=== PATIENT | female | born 1940 | race Caucasian/White ===

== ENCOUNTER 2019-08-19 10:20 | Outpatient (RCR) | payer MEDICARE, SELFPAY ==
[2019-06-17 12:28] VITALS: BP 134/43; PULSE 77; RESP 20; TEMP 37.1; O2SAT 96
[2019-06-17 12:34] LABS: Hematocrit 40.6 % (37.0-47.0); Hemoglobin 13.6 g/dL (12.0-15.0); Mean Corpuscular HGB Conc 33.5 g/dl (32-36); Mean Corpuscular Hemoglobin 30.2 pg (26-34); Mean Corpuscular Volume 90.2 fl (80-100); Mean Platelet Volume 10.3 fl (7.4-10.4); Platelet Count Result 254 k/mm3 (150-375); Red Cell Distribution Width 12.4 % (11.5-14.5); White Blood Count 8.5 K/mm3 (4.5-10.0)
[2019-06-17 12:46] LABS: Alanine Aminotransferase 27 U/L (4-35); Albumin Level 3.7 g/dL (3.5-5.1); Alkaline Phosphatase 49 U/L (38-126); Aspartate Amino Transferase 30 U/L (14-36); Bilirubin,Total 0.3 mg/dL (0.2-1.3); Blood Urea Nitrogen 20 mg/dL (7-17); Calcium 10.2 mg/dL (8.4-10.2); Carbon Dioxide 26 mmol/L (22-30); Chloride 104 mmol/L (98-107); Creatine Kinase 451 U/L (30-135); Estimated Glomerular Filt Rate > 60; Glucose 133 mg/dL (65-105); Potassium 3.5 mmol/L (3.4-5.0); Sodium 137 mmol/L (137-145)
[2019-06-27 11:00] VITALS: BP 127/59; PULSE 75; RESP 16; TEMP 36.9; O2SAT 96
[2019-06-27 12:05] VITALS: BP 145/52; PULSE 71; RESP 16; TEMP 37.1; O2SAT 96
[2019-07-08 10:34] VITALS: BP 145/52; PULSE 102; RESP 20; TEMP 36.9; O2SAT 93
--- NOTE | 2019-07-08 11:16 | PC.NURSE ---
1030 PT TO [facility] 01 FOR SOLMEDROL INFUSION. BUCK Carcamo RN CALLED FOR IV INSERTION VIA ULTRASOUND.
[2019-07-18 10:55] VITALS: BP 111/79; PULSE 81; RESP 14; TEMP 37.3; O2SAT 96
--- NOTE | 2019-07-18 11:36 | PC.NURSE ---
1020: ARRIVES VIA WC TO [facility] 1 W/ AT SIDE FOR IV SOLUMEDROL DOSE ORDERED. DENIES PAIN OR SOB ON ARRIVAL. BUCK COUNTS RN TO START IV SITE.
[2019-07-18 11:50] VITALS: BP 142/62; PULSE 80; RESP 14; TEMP 37.4; O2SAT 93
--- NOTE | 2019-07-18 12:43 | PC.NURSE ---
1156: DISCHARGED HOME W/ VIA OWN WC TO PRIVATE CAR.
[2019-07-29 10:10] VITALS: BP 136/62; PULSE 77; RESP 14; TEMP 37; O2SAT 99
[2019-08-08 10:30] VITALS: BP 148/48; PULSE 70; RESP 14; TEMP 36.7; O2SAT 99
[2019-08-19 11:00] VITALS: BP 135/63; PULSE 82; RESP 14; TEMP 37.1; O2SAT 94
[2019-08-19 11:55] VITALS: BP 129/55; PULSE 74; RESP 16; O2SAT 95
[2019-08-29 12:13] VITALS: BP 144/65; PULSE 74; RESP 14; TEMP 36.6; O2SAT 95
== END 2019-09-05 23:59 | disposition home or self-care (01) ==
LOC: ANHCPCTRAN 10:20
PROVIDERS: PCP Family Medicine; Visit Provider Family Medicine
DX: M33.22 Polymyositis with myopathy (principal)
CPT/HCPCS: 36415; 80053; 82550; 85027; 96365; J2930

== ENCOUNTER 2019-09-24 09:39 | Inpatient (IN) | payer MEDICARE, SELFPAY ==
--- NOTE | ~2019-09-24 | US_ITS ---
US right upper quadrant INDICATION: Elevated lipase PROCEDURE: Realtime right upper abdominal ultrasound. COMPARISON: No prior studies for comparison. FINDINGS: Pancreas is obscured by bowel gas. Liver echotexture is increased, consistent with fatty i nfiltration. There is normal directional flow in the portal vein. Gallbladder is surgically absent. Common bile duct measures 4.5 mm. IMPRESSION: 1: Hepatic steatosis. 2: Gallbladder is surgically absent. Reviewed, dictated and finalized at location A. R PLANT MANAGER
--- NOTE | ~2019-09-24 | CT_ITS ---
EXAMINATION: CT abdomen pelvis w con EXAM DATE: 09/24/2019 11:52 INDICATION: Left sided, pain. TECHNIQUE: Spiral CT of the abdomen and pelvis was performed following intravenous injection of 100 m L Omnipaque 350. Axial, coronal and sagittal images were reviewed. The dose-length product (DLP) fo r this examination was 372.10 mGy-cm. The exposure was tailored according to patient size (auto mA e xposure control), and iterative reconstruction (ASIR) was used as additional dose reduction technique . Comparison is made to prior examination from 06/13/2006. FINDINGS: The liver, spleen, adrenal glands and pancreas are unremarkable. Patient has probably had cholecystectomy with resultant common bile duct dilation. Portal and splenic veins are patent. Kidn eys enhance symmetrically. There is no hydronephrosis. The uterus is unremarkable. The bladder i s unremarkable. There is no retroperitoneal or pelvic lymphadenopathy. There is mild scattered art eriosclerotic disease. Small umbilical fat-containing hernia. The appendix is normal. The stomach and small bowel are unremarkable. There is expected amount of c olonic stool. There is moderate sigmoid predominant colonic diverticulosis. There is no adjacent inf lammatory change to suggest diverticulitis. No free intraperitoneal gas. There is some cardiomegal y. Linear bibasilar scarring/atelectasis. Moderate thoracolumbar spondylosis. There are no osteobla stic or osteolytic lesions identified. Diffuse fatty infiltration, atrophy of muscles. IMPRESSION: 1. No acute intra-abdominal findings. 2. Moderate sigmoid predominant colonic diverticulosis. 3. Other chronic findings. Reviewed, dictated and finalized at location A. RAPHIC INFORMATION SYSTEMS DIRECTOR
[2019-09-24 09:55] VITALS: BP 140/102; PULSE 76; RESP 17; TEMP 36.8; O2SAT 100
--- NOTE | 2019-09-24 10:04 | ED.ABDPAIN ---
HPI - Abdominal Pain General Chief Complaint: Abdominal Pain Stated Complaint: abd pain Time Seen by Provider: 09/24/19 10:01 Source: patient and RN notes reviewed Mode of arrival: other Limitations: no limitations History of Present Illness HPI narrative: Pt is an 79 y/o female who presents to the ED with c/o left sided abdominal pain that began Monday (09/22/19) night. Pt's family was at bedside and provided the information. Pt had fried fish for dinner on Monday. Pt's family states the pt only ate chicken noodle soup yesterday. Pt's family called the pt's PCP today, but they were unable to make an appointment. Pt was recommended to come to the ED for further evaluation. Pt has a hx of ischemic colitis and myositis. Pt also reports a poor appetite, but denies a fever, vomiting, and being weaker than normal. MD elicited complaint: abdominal pain Onset (ago): day(s) (2) Pain Consistency: other (still present) Location: other (left side) Relieving factors: nothing Associated symptoms: other (poor appetite) Related Data Home Medications Medication Instructions Recorded Confirmed Caltrate + D3 Plus Minerals 09/24/19 Vitamin D3 09/24/19 denosumab [Prolia] See Rx Instructions .ROUTE .COMPLEX 09/24/19 09/24/19 zoalaljoygf-phs-tsipvaphk-vitC cap PO 09/24/19 [Glucosamine Complex-MSM] metformin mg 09/24/19 methylprednisolone sodium succ 09/24/19 potassium chloride meq PO 09/24/19 potassium chloride [Klor-Con 10] meq PO 09/24/19 zoledronic acid IV 09/24/19 Allergies Allergy/AdvReac Type Severity Reaction Status Date / Time cefuroxime Allergy Unknown Unknown Verified 09/24/19 14:23 codeine Allergy Unknown Skin Verified 09/24/19 14:23 irritation metronidazole Allergy Unknown Unknown Verified 09/24/19 14:23 Ulvwryp-Pqz-Ycw Reductase AdvReac Unknown Verified 09/24/19 14:23 Inhibitor Review of Systems Review of Systems: All systems reviewed & are unremarkable except as noted in HPI and below Constitutional: Constitutional: Denies fever(s) and Reports poor appetite Gastrointestinal: Gastrointestinal: Reports abdominal pain (left sided) and Denies vomiting Neurologic: Denies weakness (increased) [facility] Past Medical History Medical History (Updated 09/24/19 @ 18:36 by Sharon Costello MD) GERD (gastroesophageal reflux disease) Ischemic colitis Myositis Osteoporosis Seasonal allergies Type II diabetes mellitus Ulcer UTI (urinary tract infection) Surgical History Surgical History (Updated 09/24/19 @ 10:39 by Shirlene Snyder) History of cardiac catheterization Hx of appendectomy Hx of cholecystectomy Family History Family History (Updated 09/24/19 @ 16:07 by Sanchez Melendez, RN) Other Unknown family medical history Social History Social History Smoking status: Never smoker Second hand tobacco smoke exposure: No Alcohol intake: former Substance use: never Gender identity (if verbalized by the patient): Female Spiritual care concerns: No Agree to blood products: No Exam Narrative: Exam Narrative: GENERAL: well-nourished, and in no acute distress. HEAD: Normocephalic, atraumatic EYES: PERRLA and EOMI, conjunctiva clear without discharge THROAT:Mucous membranes moist, Oropharynx normal without erythema, exudate, peritonsillar swelling or fluctuance NECK: Supple, without lymphadenopathy or mass RESPIRATORY: No respiratory distress, Airway patent, Respirations non-labored, Clear to auscultation without rales, rhonchi or wheeze HEART: Regular rate and rhythm. No murmur heard. Normal peripheral pulses. ABDOMEN: Diffuse tenderness with worse tenderness epigastric RUQ, LUQ, nondistended, normal active bowel sounds. No masses. No rebound or guarding, No organomegaly. EXTREMITIES: bilateral lower extremity edema SKIN: Warm, dry, normal color without rash NEURO: Alert and oriented x person, place. CN 2-12 grossly intact. No focal deficits. PSYCH: Normal mo
[2019-09-24] MEDS: LACTATED RINGERS 1,000 ML 999 ML IV CONT (10:37)
[2019-09-24 10:38] LABS: Basophils Percent Auto 0.2 % (0.2-1.2); Eosinophils Absolute Auto 0.2 K/mm3 (0-0.3); Eosinophils Percent Auto 1.6 % (0-4.4); Hematocrit 41.7 % (37.0-47.0); Immature Granulocyte Absolute 0.04 K/mm3 (0.00-0.031); Immature Granulocyte Percent A 0.4 % (0-0.5); Lymphocytes Absolute Auto 1.99 K/mm3 (0.9-3.2); Lymphocytes Percent Auto 18.1 % (18.3-44.2); Mean Corpuscular HGB Conc 33.6 g/dl (32-36); Mean Corpuscular Hemoglobin 29.7 pg (26-34); Mean Corpuscular Volume 88.5 fl (80-100); Mean Platelet Volume 10.9 fl (7.4-10.4); Monocytes Absolute Auto 0.8 K/mm3 (0.1-0.6); Monocytes Percent Auto 7.5 % (2.6-8.5); Neutrophils Absolute Auto 7.9 K/mm3 (1.3-6.7); Neutrophils Percent Auto 72.2 % (45.5-73.1); Platelet Count Result 278 k/mm3 (150-375); Red Blood Count 4.71 M/mm3 (4.2-5.4); Red Cell Distribution Width 12.8 % (11.5-14.5)
[2019-09-24 11:05] LABS: Alanine Aminotransferase 24 U/L (4-35); Albumin Level 3.7 g/dL (3.5-5.1); Alkaline Phosphatase 40 U/L (38-126); Aspartate Amino Transferase 26 U/L (14-36); Bilirubin,Total 0.5 mg/dL (0.2-1.3); Blood Urea Nitrogen 10 mg/dL (7-17); Carbon Dioxide 25 mmol/L (22-30); Chloride 101 mmol/L (98-107); Estimated CRCL calculation 98 ml/min; Estimated Glomerular Filt Rate > 60; Glucose 125 mg/dL (65-105); Potassium 3.5 mmol/L (3.4-5.0); Sodium 136 mmol/L (137-145)
[2019-09-24 11:10] LABS: Lipase 3515 U/L (23-300)
[2019-09-24 12:17] VITALS: BP 161/101; PULSE 78; RESP 20
[2019-09-24 12:23] LABS: Add Urine Microscopic? YES; Appearance Urine Clear (Clear); Bilirubin Urine Negative (Negative); Blood Urine 1+ (Negative); Color Urine Straw (Yellow); Glucose Urine UA Negative (Negative); Ketones Urine Negative (Negative); Leukocyte Esterase Ur Negative LEU/UL (Negative); Mucus Urine Rare /lpf; Nitrate Urine Negative (Negative); Protein Urine Negative (Negative); RBC Urine 0-2 /hpf (0-2); Urobilinogen Urine Negative mg/dL (<2.0); WBC Urine 0-3 /hpf
[2019-09-24 14:00] LABS: Lactic Acid Reflex 0.8 mmol/L (0.7-2.1)
--- NOTE | 2019-09-24 14:36 | PC.NURSE ---
called to give report on pt. Per Kesha nurse will have to call me back
--- NOTE | 2019-09-24 14:36 | PC.NURSE ---
Per pts husbands pt has an autoimmune disorder due to her taking statins. Per pts she is not allowed to get statins.
[2019-09-24 15:08] VITALS: BP 157/63; PULSE 74; O2SAT 97
[2019-09-24 15:48] VITALS: BP 142/56; PULSE 74; RESP 18; TEMP 36.7; O2SAT 95
[2019-09-24 15:49] VITALS: BMI 28.1
[2019-09-24] MEDS: LACTATED RINGERS 1,000 ML 125 ML IV CONT (15:52)
--- NOTE | 2019-09-24 16:05 | ADMGEN ---
This patient, Meghana Loyd, was admitted to Medical Room 248-. Patient/family oriented to hospital policies and general routines including ID bracelet, bed and alarms, visiting hours, pain management, procedures, bathroom and other care routines, personal items, smoking policy, room service/diet, and visiting hours. Valuables list has been completed. Information on how to activate the Rapid Response Team has been discussed. Patient/Family are encouraged to report perceived risks to care and to ask questions if they do not understand what they are told or what they should do.
--- NOTE | 2019-09-24 21:07 | PM.IMHP ---
H&P: HPI History of Present Illness Chief complaint: abd pain/Elevated Lipase Narrative: This is a pleasant 79 year old Diabetic female with known past history of ischemic colitis and myositis who presented to the hospital with a complaint of upper abdominal pain for the past four days. She denies any fever, chills or vomiting but has been nauseated. She also denies any diarrhea. Her last bowel movement was 4 days ago. She denies any abdominal distention. Her symptoms are worse after eating and yesterday she only had chicken noodle soup. The patient's had verbalized to ER staff that he cannot take care of her anymore. She is known to ambulate with a walker but has chronic weakness. She also is known to have had a cholecystectomy at the age of 18. She has no previous history of pancreatitis. The patient was started on a clear liquid diet by ER provider and now again has abdominal pain after eating dinner. She denies any other symptoms at this time. Review of Systems Review of Systems: All systems reviewed & are unremarkable except as noted in HPI and below PMFSH Past Medical History Medical History GERD (gastroesophageal reflux disease) Ischemic colitis Myositis Osteoporosis Seasonal allergies Type II diabetes mellitus Ulcer UTI (urinary tract infection) Surgical History Surgical History History of cardiac catheterization Hx of appendectomy Hx of cholecystectomy Family History Family History Other Unknown family medical history Social History Social History Smoking status: Never smoker Second hand tobacco smoke exposure: No Alcohol intake: former Substance use: never Gender identity (if verbalized by the patient): Female Spiritual care concerns: No Agree to blood products: No Meds Home Medications and Allergies Home Medications Medication Instructions Recorded Confirmed Type Caltrate + D3 Plus Minerals 1,500 mg IV PRN PRN 09/24/19 09/24/19 History Vitamin D3 IV PRN PRN 09/24/19 History denosumab [Prolia] See Rx Instructions .ROUTE .COMPLEX 09/24/19 09/24/19 History fenofibrate 160 mg PO DAILY 09/24/19 09/24/19 History metformin 1,500 mg DAILY 09/24/19 09/24/19 History methylprednisolone sodium succ 700 mg IV PRN PRN 09/24/19 09/24/19 History potassium chloride 10 meq PO BIDWM 09/24/19 09/24/19 History zoledronic acid IV PRN PRN 09/24/19 History Allergies Allergy/AdvReac Type Severity Reaction Status Date / Time cefuroxime Allergy Unknown Unknown Verified 09/24/19 14:23 codeine Allergy Unknown Skin Verified 09/24/19 14:23 irritation metronidazole Allergy Unknown Unknown Verified 09/24/19 14:23 Uqopofa-Wxv-Nse Reductase AdvReac Unknown Verified 09/24/19 14:23 Inhibitor Vital Signs Vital Signs - 24 hr 09/24/19 09:55 09/24/19 12:17 09/24/19 15:08 Temperature 36.8 C Pulse Rate 76 78 74 Respiratory Rate 17 20 Blood Pressure 140/102 H 161/101 H 157/63 H Pulse Oximetry 100 97 09/24/19 15:48 Temperature 36.7 C Pulse Rate 74 Respiratory Rate 18 Blood Pressure 142/56 H Pulse Oximetry 95 Exam Const: General: cooperative, no acute distress, alert and awake Nutritional Appearance: well nourished Orientation/consciousness: patient oriented x3 HENMT: Head: normal to inspection General nose exam: Normal external nose present Face and sinus: normal facial exam Mouth: Yes Normal oral and palatal mucosa present and Yes oropharynx normal Eyes: Pupils: Equal, round and reactive pupils present EOM: EOMs intact bilaterally Neck: Neck: supple and no JVD Thyroid: thyroid normal Lymphatic: lymphadenopathy not noted Resp: Effort & Inspection: normal respiratory effort Auscultation: clear to auscultation bilaterally Cardio: Rate: regula
[2019-09-24 21:44] LABS: Glucose Point of Care 125 (65-105)
[2019-09-24 22:00] VITALS: BP 130/46; PULSE 77; RESP 18; TEMP 36.4; O2SAT 97
[2019-09-25] MEDS: ONDANSETRON INJ 4 MG/2 ML VIAL IV PUSH (02:19)
[2019-09-25] MEDS: LACTATED RINGERS 1,000 ML 125 ML IV CONT ×2 (02:24→12:49)
[2019-09-25 05:48] LABS: Alanine Aminotransferase 18 U/L (4-35); Albumin Level 2.9 g/dL (3.5-5.1); Alkaline Phosphatase 42 U/L (38-126); Amylase 175 U/L (30-110); Aspartate Amino Transferase 20 U/L (14-36); Bilirubin,Total 0.4 mg/dL (0.2-1.3); Blood Urea Nitrogen 5 mg/dL (7-17); Calcium 8.4 mg/dL (8.4-10.2); Carbon Dioxide 22 mmol/L (22-30); Chloride 101 mmol/L (98-107); Cholesterol 155 mg/dL (0-200); Estimated CRCL calculation 98 ml/min; Estimated Glomerular Filt Rate > 60; Glucose 128 mg/dL (65-105); HDL Direct 61 mg/dL; Lipase 1690 U/L (23-300); Potassium 3.2 mmol/L (3.4-5.0); Sodium 134 mmol/L (137-145); Triglycerides 145 mg/dL (<150)
[2019-09-25 06:00] VITALS: BP 148/53; PULSE 64; RESP 18; TEMP 36.5; O2SAT 96
[2019-09-25 06:00] LABS: LDL Cholesterol Direct 78 mg/dL
[2019-09-25 06:03] LABS: Basophils Percent Auto 0.2 % (0.2-1.2); Eosinophils Absolute Auto 0.3 K/mm3 (0-0.3); Eosinophils Percent Auto 2.5 % (0-4.4); Hematocrit 36.2 % (37.0-47.0); Immature Granulocyte Absolute 0.04 K/mm3 (0.00-0.031); Immature Granulocyte Percent A 0.4 % (0-0.5); Lymphocytes Absolute Auto 1.74 K/mm3 (0.9-3.2); Lymphocytes Percent Auto 17.5 % (18.3-44.2); Mean Corpuscular HGB Conc 33.1 g/dl (32-36); Mean Corpuscular Hemoglobin 29.1 pg (26-34); Mean Corpuscular Volume 87.7 fl (80-100); Mean Platelet Volume 10.3 fl (7.4-10.4); Monocytes Absolute Auto 0.9 K/mm3 (0.1-0.6); Monocytes Percent Auto 8.9 % (2.6-8.5); Neutrophils Percent Auto 70.5 % (45.5-73.1); Platelet Count Result 262 k/mm3 (150-375); Red Blood Count 4.13 M/mm3 (4.2-5.4); Red Cell Distribution Width 12.6 % (11.5-14.5); White Blood Count 9.9 K/mm3 (4.5-10.0)
[2019-09-25 07:33] LABS: Glucose Point of Care 121 (65-105)
--- NOTE | 2019-09-25 11:15 | PC.NURSE ---
and daughter in law at bedside angry and voicing frustration that an MD has not been in to see patient today. Family upset at this time that doctor has not done rounds or placed new orders. They have requested that only an MD see patient. They wish to have no PA's or GRADUATE TEACHER EDUCATION's involved in care team. Dr. Park notified of family's wishes and frustrations. Informed patient, , and daughter in law that Dr. Park will be seeing patient today. He will be to floor to see patient shortly at rounds.
[2019-09-25 13:08] LABS: Glucose Point of Care 114 (65-105)
[2019-09-25 14:00] VITALS: BP 134/60; PULSE 65; RESP 20; TEMP 36.6; O2SAT 95
--- NOTE | 2019-09-25 14:30 | PM.IMPN ---
Progress Note: A&P Assessment and Plan (1) Acute bilateral upper abdominal pain: Code(s): R10.11 - Right upper quadrant pain; R10.12 - Left upper quadrant pain Status: Acute Assessment and Plan: Lipase elevated to [address] scan showing no radiographic evidence of pancreatitis. Lipase trending down and abd pain better. Consider passed biliary stone/sludge vs penetrating peptic ulcer vs chronically elevated lipase. Favor the former. Will check RUQ US. GI to consult. Add PPI. Trend lipase. Consider MRCP. Start clear liquid diet. (2) Elevated lipase: Code(s): R74.8 - Abnormal levels of other serum enzymes Status: Acute Assessment and Plan: As above. Continue to monitor serum lipase. (3) Type II diabetes mellitus: Code(s): E11.9 - Type 2 diabetes mellitus without complications Status: Chronic Assessment and Plan: Glucose reviewed on 09/25/19 and is well controlled. Continue Accuchecks with SSI Coverage. Hypolgycemic protocol in place. (4) GERD (gastroesophageal reflux disease): Code(s): K21.9 - Gastro-esophageal reflux disease without esophagitis Status: Acute Assessment and Plan: IV PPI therapy started. (5) Myositis: Code(s): M60.9 - Myositis, unspecified Status: Acute Assessment and Plan: On chronic pulsed steroids. BP stable. Consider stress dose steroids if her condition deteriorates. Start PT/OT and have her out of bed as much as possible. Subjective Date/time seen: 09/25/19 14:30 Interval history: 79yo female here for abdominal pain. Patient feels better. Abd pain persistent but improved. Appetitie still decreased and does not feel like eating. On chronic pulse dose steroids with Solu-Medrol 700mg every 10 days. Last dose of steroids was Monday. Does not take any NSAIDS. No CP or SOB. No nausea today. No diarrhea or vomiting. Family at bedside and they mention patient's symptoms started after eating a very fatty meal. Exam Narrative: Exam Narrative: Gen - NARD Chest - CTA bilaterally, nml RR CV - RRR S1/S2 Abd - soft, ND, mild epigastric pain. Ext - no pedal edema Psych - nml mood and affect Skin - warm and dry Objective Data Vital Signs Vital Signs: Vital Signs - 24 hr 09/24/19 15:08 09/24/19 15:48 09/24/19 22:00 Temperature 98.1 F 97.6 F Pulse Rate 74 74 77 Respiratory Rate 18 18 Blood Pressure 157/63 H 142/56 H 130/46 L Pulse Oximetry 97 95 97 09/25/19 06:00 Temperature 97.7 F Pulse Rate 64 Respiratory Rate 18 Blood Pressure 148/53 H Pulse Oximetry 96 Intake/Output Intake/Output: Intake & Output 09/22/19 09/23/19 09/24/19 09/25/19 23:59 23:59 23:59 23:59 Intake Total 2900 1200 Output Total 700 300 Balance 2200 900 Meds/Results Medications: Active Medications Generic Name Dose Route Start Last Admin Trade Name Freq PRN Reason Stop Dose Admin Dextrose 12.5 gm 09/24/19 19:07 Dextrose 50% Syringe IV PUSH PRN PRN Hypoglycemia Protocol Glucagon 1 mg 09/24/19 19:07 Glucagon For Inj IM PRN PRN Hypoglycemia Protocol Glucose 15 gm 09/24/19 19:07 Glutose 15 PO PRN PRN Hypoglycemia Protocol Lactated Ringer's 1,000 mls @ 125 mls/hr 09/24/19 13:25 09/25/19 12:49 Lr - Lactated Ringers Iv IV CONT 125 mls/hr .Q8H CARL Administration Dextrose 1,000 mls @ 100 mls/hr 09/24/19 19:07 Dextrose 5% 1,000 Ml IVPB PRN PRN Hypoglycemia Protocol Insulin Aspart 2 - 5 units 09/24/19 17:00 09/25/19 12:49 Novolog SUB-Q Not Given TIDWM CARL Protocol Ondansetron HCl 4 mg 09/24/19 13:24 09/25/19 02:19 Zofran Inj IV PUSH 4 mg Q4H PRN Administration Nausea Radiology Results: ITS Impressions Abdomen/Pelvis CT 09/24/19 11:59 IMPRESSION: 1. No acute intra-abdominal findings. 2. Moderate sigmoid predominant colonic diverticul
[2019-09-25] MEDS: KCL 40 MEQ/0.9% SOD CHL 1,000 ML 100 ML IV CONT (15:03)
--- NOTE | 2019-09-25 17:44 | WPDGICN ---
Assessment and Plan Additional Plan This is an 79-year-old white female patient I am asked to see at the request of the emergency room. Patient reports having epigastric pain for several weeks. The chart reflects that her pain began on Monday 3 days ago. Patient reports pain in the midepigastric area of the abdomen. She presented to the emergency room today was found to have elevated lipase 1690. Her past history is significant for cholecystectomy. Patient denies any emesis. She states she is tender in this area. She has no appetite. Past medical history is significant for ischemic colitis and myositis. She has a history of a cholecystectomy many years ago. She has a history of GE reflux disease. She previously had an ulcer. She has been treated for diabetes mellitus. Previous surgery includes cholecystectomy, appendectomy and heart catheterization. Current medications include Prolia, fenofibrate, metformin, methylprednisolone, potassium, allergies include cefuroxime, codeine, Flagyl and statins.. Family history noncontributory. Physical exam reveals her to be alert. She is anicteric. Lungs are clear to auscultation and percussion. Heart is without murmur or extra sounds. Abdominal exam bowel sounds are present soft she is tender in the epigastric area. CT scan of the abdomen reveals previous cholecystectomy. No mention of the pancreas. Ultrasound confirms previous cholecystectomy. Pancreas is not visualized. Labs reveal LFTs to be normal. CBC is normal extra lytes unremarkable. Lipase is elevated 1690. Impression 1. Epigastric pain. 2. Acute pancreatitis. 3. Previous cholecystectomy. 4. Diabetes mellitus. impression is that she likely has acute pancreatitis. This could be idiopathic. No evidence of gallstones by exam today 8 and liver test are normal. Cannot exclude that epigastric pain related to gastric etiology. Plan for patient to be NPO and pain control. Proton pump inhibitor will be started. An EGD will be planned in the morning. Lipase and liver function tests will be monitored. GI Consult Note Consult date/time: 09/25/19 17:44 HPI: Meghana Loyd is a 79 year old female [facility] Past Medical History Medical History GERD (gastroesophageal reflux disease) Ischemic colitis Myositis Osteoporosis Seasonal allergies Type II diabetes mellitus Ulcer UTI (urinary tract infection) Surgical History Surgical History History of cardiac catheterization Hx of appendectomy Hx of cholecystectomy Family History Family History Other Unknown family medical history Social History Social History Smoking status: Never smoker Second hand tobacco smoke exposure: No Alcohol intake: former Substance use: never Gender identity (if verbalized by the patient): Female Spiritual care concerns: No Agree to blood products: No Meds Home Medications and Allergies Home Medications Medication Instructions Recorded Confirmed Type Caltrate + D3 Plus Minerals 1,500 mg IV PRN PRN 09/24/19 09/24/19 History Vitamin D3 IV PRN PRN 09/24/19 History denosumab [Prolia] See Rx Instructions .ROUTE .COMPLEX 09/24/19 09/24/19 History fenofibrate 160 mg PO DAILY 09/24/19 09/24/19 History metformin 1,500 mg DAILY 09/24/19 09/24/19 History methylprednisolone sodium succ 700 mg IV PRN PRN 09/24/19 09/24/19 History potassium chloride 10 meq PO BIDWM 09/24/19 09/24/19 History zoledronic acid IV PRN PRN 09/24/19 History Allergies Allergy/AdvReac Type Severity Reaction Status Date / Time cefuroxime Allergy Unknown Unknown Verified 09/24/19 14:23 codeine Allergy Unknown Skin Verified 09/24/19 14:23 irritation metronidazole Allergy Unknown Unknown Verified 09/24/19 14:23
[2019-09-25] MEDS: PANTOPRAZOLE SODIUM IV 40 MG VIAL IV PUSH ×2 (18:21→20:44)
[2019-09-25 18:40] LABS: Lipase 1550 U/L (23-300)
[2019-09-25 19:00] LABS: Glucose Point of Care 99 (65-105)
[2019-09-25 21:05] LABS: Glucose Point of Care 105 (65-105)
[2019-09-25 22:00] VITALS: BP 150/57; PULSE 77; RESP 16; TEMP 36.4; O2SAT 92
[2019-09-26] VITALS (8 sets, daily range): BP systolic 107–153; BP diastolic 54–85; PULSE 72–86; RESP 16–22; TEMP 36.2–36.7; O2SAT 95–100
[2019-09-26] MEDS: KCL 40 MEQ/0.9% SOD CHL 1,000 ML 100 ML IV CONT ×2 (00:38→13:13)
[2019-09-26 06:08] LABS: Hemoglobin A1C 7.8 % (<5.7)
[2019-09-26 06:18] LABS: Blood Urea Nitrogen 5 mg/dL (7-17); Calcium 8.1 mg/dL (8.4-10.2); Carbon Dioxide 18 mmol/L (22-30); Chloride 101 mmol/L (98-107); Estimated CRCL calculation 98 ml/min; Estimated Glomerular Filt Rate > 60; Glucose 93 mg/dL (65-105); Lipase 1141 U/L (23-300); Magnesium 1.9 mg/dL (1.6-2.3); Phosphorus 2.2 mg/dL (2.5-4.5); Potassium 4.2 mmol/L (3.4-5.0); Sodium 134 mmol/L (137-145)
[2019-09-26 07:28] LABS: Glucose Point of Care 97 (65-105)
[2019-09-26] MEDS: PANTOPRAZOLE SODIUM IV 40 MG VIAL IV PUSH ×2 (07:37→20:07)
[2019-09-26 09:28] LABS: Glucose Point of Care 85 (65-105)
--- NOTE | 2019-09-26 09:35 | WPDANESEPPF ---
Anes - Initial Pre Proc Eval Procedure: Operation Date: 09/26/19 09:30 Proposed Procedures p Esophagogastroduodenoscopy - Hari Shi MD Date/Time: 09/26/19 09:35 Surgeon: Mary Nguyen PA-C Pre Op Diagnosis: abd pain/Elevated Lipase Patient Data Age: 79 Gender: F Height: 5 ft Weight: 65.4 kg Last Vital Signs Temp 98.0 F 09/26/19 09:22 Pulse 79 09/26/19 09:22 Resp 18 09/26/19 09:22 BP 147/56 H 09/26/19 09:22 Pulse Ox 95 09/26/19 09:22 Allergies Allergy/AdvReac Type Severity Reaction Status Date / Time cefuroxime Allergy Unknown Unknown Verified 09/26/19 09:03 codeine Allergy Unknown Skin Verified 09/26/19 09:03 irritation metronidazole Allergy Unknown Unknown Verified 09/26/19 09:03 Yihbnfl-Jmd-Hpw Reductase AdvReac Unknown Verified 09/26/19 09:03 Inhibitor Home Medications Medication Instructions Recorded Confirmed Type Caltrate + D3 Plus Minerals 1,500 mg IV PRN PRN 09/24/19 09/24/19 History Vitamin D3 IV PRN PRN 09/24/19 History denosumab [Prolia] See Rx Instructions .ROUTE .COMPLEX 09/24/19 09/24/19 History fenofibrate 160 mg PO DAILY 09/24/19 09/24/19 History metformin 1,500 mg DAILY 09/24/19 09/24/19 History methylprednisolone sodium succ 700 mg IV PRN PRN 09/24/19 09/24/19 History potassium chloride 10 meq PO BIDWM 09/24/19 09/24/19 History zoledronic acid IV PRN PRN 09/24/19 History Laboratory Tests 09/25/19 09/25/19 09/25/19 12:47 18:22 18:24 Sodium Potassium Chloride Carbon Dioxide BUN Creatinine Estim Creat Clear Calc Estimated GFR Glucose POC Capillary Glucose 114 mg/dl H mg/dl 99 mg/dl mg/dl (65-105) (65-105) Hemoglobin A1c Calcium Phosphorus Magnesium Albumin Lipase 1550 U/L H U/L (23-300) 09/25/19 09/26/19 09/26/19 20:51 05:15 05:15 Sodium 134 mmol/L L mmol/L (137-145) Potassium 4.2 mmol/L mmol/L (3.4-5.0) Chloride 101 mmol/L mmol/L (98-107) Carbon Dioxide 18 mmol/L L mmol/L (22-30) BUN 5 mg/dL L mg/dL (7-17) Creatinine 0.30 mg/dL L mg/dL (0.7-1.0) Estim Creat Clear Calc 98 ml/min ml/min Estimated GFR > 60 (59 - ) Glucose 93 mg/dL mg/dL (65-105) POC Capillary Glucose 105 mg/dl mg/dl (65-105) Hemoglobin A1c 7.8 % H % (<5.7) Calcium 8.1 mg/dL L mg/dL (8.4-10.2) Phosphorus 2.2 mg/dL L mg/dL (2.5-4.5) Magnesium 1.9 mg/dL mg/dL (1.6-2.3) Albumin 3.0 g/dL L g/dL (3.5-5.1) Lipase 1141 U/L H U/L (23-300) 09/26/19 09/26/19 06:28 09:27 Sodium Potassium Chloride Carbon Dioxide BUN Creatinine Estim Creat Clear Calc Estimated GFR Glucose POC Capillary Glucose 97 mg/dl mg/dl 85 mg/dl mg/dl (65-105) (65-105) Hemoglobin A1c Calcium Phosphorus Magnesium Albumin Lipase Patient hx anesthesia problems: none Family hx anesthesia problems: none PMFSH Past Medical History Medical History GERD (gastroesophageal reflux disease) Ischemic colitis Myositis Osteoporosis Seasonal allergies Type II diabetes mellitus Ulcer UTI (urinary tract infection) Surgical History Surgical History History of cardiac catheterization Hx of appendectomy Hx of cholecystectomy Family History Family History Other Unknown family medical history Social History Social History Smoking status: Never smoker Second hand tobac
[2019-09-26] MEDS: LACTATED RINGERS 1,000 ML 150 ML IV CONT (09:53)
[2019-09-26 10:54] LABS: Glucose Point of Care 87 (65-105)
[2019-09-26] MEDS: POTASSIUM/PHOSPHORUS/SODIUM 1.5 GM PACKET 1 PACKET PO (16:45)
[2019-09-26 16:55] LABS: Glucose Point of Care 95 (65-105)
--- NOTE | 2019-09-26 18:58 | PM.IMPN ---
Progress Note: A&P Assessment and Plan (1) Acute bilateral upper abdominal pain: Code(s): R10.11 - Right upper quadrant pain; R10.12 - Left upper quadrant pain Status: Acute Assessment and Plan: Lipase elevated to [address] scan showing no radiographic evidence of pancreatitis but clinically appears to have pancreatitis. Lipase trending down to 1140 and abd pain better. EGD normal. Patient may have passed biliary stone/sludge but RUQ US showing no dilated duct. Tolerating clear liquid diet. Continue to trend lipase and follow clinically. Advance diet. SLIVF. Continue PPI. (2) Elevated lipase: Code(s): R74.8 - Abnormal levels of other serum enzymes Status: Acute Assessment and Plan: As above. Continue to monitor serum lipase. (3) Type II diabetes mellitus: Code(s): E11.9 - Type 2 diabetes mellitus without complications Status: Chronic Assessment and Plan: Glucose reviewed on 09/26/19 and is well controlled. Continue Accuchecks with SSI Coverage. Hypolgycemic protocol in place. (4) GERD (gastroesophageal reflux disease): Code(s): K21.9 - Gastro-esophageal reflux disease without esophagitis Status: Acute Assessment and Plan: EGD negative. Continue Protonix. (5) Myositis: Code(s): M60.9 - Myositis, unspecified Status: Acute Assessment and Plan: On chronic pulsed steroids. BP overall stable. Continue PT/OT. Subjective Date/time seen: 09/26/19 18:58 Interval history: 79yo female here for abdominal pain. Patient factor EGD and tolerated it well. She has been out of bed to the chair but has not walked yet. She is tolerating clear liquid diet. She did have some nausea earlier today. Abdominal pain is better. Exam Narrative: Exam Narrative: Gen - NARD lying semi recumbent in bed Chest - CTA bilaterally, nml RR CV - RRR S1/S2 Abd -soft. Nondistended. With mild epigastric pain. Ext - no pedal edema Neuro -patient diffusely weak. No focal weakness. Psych - nml mood and affect. In good spirits today. Skin - warm and dry Objective Data Vital Signs Vital Signs: Vital Signs - 24 hr 09/25/19 22:00 09/26/19 05:30 09/26/19 09:22 Temperature 97.6 F 97.7 F 98.0 F Pulse Rate 77 86 79 Respiratory Rate 16 16 18 Blood Pressure 150/57 H 148/85 H 147/56 H Pulse Oximetry 92 95 95 09/26/19 10:04 09/26/19 10:14 09/26/19 10:24 Temperature Pulse Rate 73 73 72 Respiratory Rate 22 H 21 H 19 Blood Pressure 107/54 L 107/57 L 127/66 Pulse Oximetry 100 100 99 09/26/19 14:00 Temperature 98.0 F Pulse Rate 78 Respiratory Rate 16 Blood Pressure 146/80 H Pulse Oximetry 98 Intake/Output Intake/Output: Intake & Output 09/23/19 09/24/19 09/25/19 09/26/19 23:59 23:59 23:59 23:59 Intake Total 2900 1890 2665 Output Total 700 1850 2050 Balance 2200 40 615 Meds/Results Medications: Active Medications Generic Name Dose Route Start Last Admin Trade Name Freq PRN Reason Stop Dose Admin Dextrose 12.5 gm 09/24/19 19:07 Dextrose 50% Syringe IV PUSH PRN PRN Hypoglycemia Protocol Glucagon 1 mg 09/24/19 19:07 Glucagon For Inj IM PRN PRN Hypoglycemia Protocol Glucose 15 gm 09/24/19 19:07 Glutose 15 PO PRN PRN Hypoglycemia Protocol Dextrose 1,000 mls @ 100 mls/hr 09/24/19 19:07 Dextrose 5% 1,000 Ml IVPB PRN PRN Hypoglycemia Protocol Insulin Aspart 2 - 5 units 09/24/19 17:00 09/26/19 16:45 Novolog SUB-Q Not Given TIDWM [facility] Protocol Ondansetron HCl 4 mg 09/24/19 13:24 09/25/19 02:19 Zofran Inj IV PUSH 4 mg Q4H PRN Administration Nausea Pantoprazole Sodium 40 mg 09/25/19 21:00 09/26/19 07:37 Protonix Iv IV PUSH 40 mg Q12HR [facility] Administration Radiology Results: ITS Impressions Abdomen/Pelvis CT 09/24/19 11:59 IMPRESSION: 1. No acute intra-abdominal
[2019-09-26 23:10] LABS: Glucose Point of Care 134 (65-105)
[2019-09-27 05:58] VITALS: BP 131/82; PULSE 75; RESP 20; TEMP 35.9; O2SAT 100
[2019-09-27 06:13] LABS: Albumin Level 3.2 g/dL (3.5-5.1); Blood Urea Nitrogen 4 mg/dL (7-17); Calcium 8.7 mg/dL (8.4-10.2); Carbon Dioxide 23 mmol/L (22-30); Chloride 101 mmol/L (98-107); Estimated CRCL calculation 98 ml/min; Estimated Glomerular Filt Rate > 60; Glucose 126 mg/dL (65-105); Lipase 900 U/L (23-300); Phosphorus 2.4 mg/dL (2.5-4.5); Potassium 3.5 mmol/L (3.4-5.0); Sodium 133 mmol/L (137-145)
[2019-09-27] MEDS: PANTOPRAZOLE SODIUM IV 40 MG VIAL IV PUSH ×2 (08:31→21:18)
--- NOTE | 2019-09-27 11:24 | WPDGIPROGNO ---
Progress Note: A&P Additional Plan Patient alert and comfortable this morning. She reports pain has diminished. Physical exam vital signs stable. HEENT exam she is anicteric. Lungs are clear. Heart without murmur. Abdomen bowel sounds are present soft mild epigastric discomfort. Labs reveal a lipase 900. This is decreased some. LFTs remain normal. His hemoglobin stable. Impression 1. Pancreatitis. Likely idiopathic in nature. Plan is for slowly increase of diet. Continue supportive care. Pain control if necessary. Subjective Date/time seen: 09/27/19 11:24 Objective Data Vital Signs Vital Signs: Vital Signs - 24 hr 09/26/19 14:00 09/26/19 20:00 09/26/19 22:00 Temperature 36.7 C 36.2 C L Pulse Rate 78 78 78 Respiratory Rate 16 16 16 Blood Pressure 146/80 H 153/60 H Pulse Oximetry 98 98 95 09/27/19 05:58 Temperature 35.9 C L Pulse Rate 75 Respiratory Rate 20 Blood Pressure 131/82 Pulse Oximetry 100 Intake/Output Intake/Output: Intake & Output 09/24/19 09/25/19 09/26/19 09/27/19 23:59 23:59 23:59 23:59 Intake Total 2900 1890 2665 200 Output Total 700 1850 2050 1000 Balance 2200 40 615 -800 Meds/Results Medications: Active Medications Generic Name Dose Route Start Last Admin Trade Name Freq PRN Reason Stop Dose Admin Dextrose 12.5 gm 09/24/19 19:07 Dextrose 50% Syringe IV PUSH PRN PRN Hypoglycemia Protocol Glucagon 1 mg 09/24/19 19:07 Glucagon For Inj IM PRN PRN Hypoglycemia Protocol Glucose 15 gm 09/24/19 19:07 Glutose 15 PO PRN PRN Hypoglycemia Protocol Dextrose 1,000 mls @ 100 mls/hr 09/24/19 19:07 Dextrose 5% 1,000 Ml IVPB PRN PRN Hypoglycemia Protocol Insulin Aspart 2 - 5 units 09/24/19 17:00 09/27/19 08:29 Novolog SUB-Q Not Given TIDWM [facility] Protocol Ondansetron HCl 4 mg 09/24/19 13:24 09/25/19 02:19 Zofran Inj IV PUSH 4 mg Q4H PRN Administration Nausea Pantoprazole Sodium 40 mg 09/25/19 21:00 09/27/19 08:31 Protonix Iv IV PUSH 40 mg Q12HR CARL Administration Radiology Results: ITS Impressions Abdomen/Pelvis CT 09/24/19 11:59 IMPRESSION: 1. No acute intra-abdominal findings. 2. Moderate sigmoid predominant colonic diverticulosis. 3. Other chronic findings. Upper Quadrant Ultrasound 09/25/19 16:20 IMPRESSION: 1: Hepatic steatosis. 2: Gallbladder is surgically absent. Labs Labs: Laboratory Results - last 24 hr 09/26/19 09/26/19 09/27/19 16:45 20:01 05:14 Sodium 133 L Potassium 3.5 Chloride 101 Carbon Dioxide 23 BUN 4 L Creatinine 0.30 L Estim Creat Clear Calc 98 Estimated GFR > 60 Glucose 126 H POC Capillary Glucose 95 134 H Calcium 8.7 Phosphorus 2.4 L Albumin 3.2 L Lipase 900 H
[2019-09-27 11:47] LABS: Glucose Point of Care 249 (65-105)
[2019-09-27] MEDS: INSULIN ASPART (*BKC) 100 UNITS/ML SUB-Q (13:04)
[2019-09-27 14:00] VITALS: BP 144/50; PULSE 78; RESP 17; TEMP 36.7; O2SAT 97
--- NOTE | 2019-09-27 14:32 | PM.IMPN ---
Progress Note: A&P Assessment and Plan (1) Acute bilateral upper abdominal pain: Code(s): R10.11 - Right upper quadrant pain; R10.12 - Left upper quadrant pain Status: Acute Assessment and Plan: Lipase elevated to [address] scan showing no radiographic evidence of pancreatitis but clinically appears to have pancreatitis. Lipase trending down to 900 and abd pain almost resolved. EGD normal. Patient may have passed biliary stone/sludge but RUQ US showing no dilated duct. Tolerating full liquid diet. Continue to trend lipase and follow clinically. Advance diet. Continue PPI. (2) Elevated lipase: Code(s): R74.8 - Abnormal levels of other serum enzymes Status: Acute Assessment and Plan: As above. Continue to monitor serum lipase. (3) Type II diabetes mellitus: Code(s): E11.9 - Type 2 diabetes mellitus without complications Status: Chronic Assessment and Plan: Glucose reviewed on 09/27/19 and is well controlled except 249 before lunch. Continue Accuchecks with SSI Coverage. Hypolgycemic protocol in place. (4) GERD (gastroesophageal reflux disease): Code(s): K21.9 - Gastro-esophageal reflux disease without esophagitis Status: Acute Assessment and Plan: EGD negative. Continue Protonix. (5) Myositis: Code(s): M60.9 - Myositis, unspecified Status: Acute Assessment and Plan: On chronic pulsed steroids. Next dose is due on MondaySeptember 30. BP overall remaining stable. Continue PT/OT. Subjective Date/time seen: 09/27/19 14:32 Interval history: 79yo female here for abdominal pain. Abdominal pain is improved. She still has abdominal pain after eating lasting about 5-10 minutes. No nausea or vomiting. No chest pain or shortness of breath. Normal bowel movements. Eating well overall. Up to the chair. Exam Narrative: Exam Narrative: Gen - NARD lying semi recumbent in bed Chest - CTA bilaterally, nml RR CV - RRR S1/S2 Abd -soft. Non distended. Minimal if any epigastric pain today Ext - no pedal edema Psych - nml mood and affect. In good spirits today. Skin - warm and dry Objective Data Vital Signs Vital Signs: Vital Signs - 24 hr 09/26/19 20:00 09/26/19 22:00 09/27/19 05:58 Temperature 97.2 F L 96.6 F L Pulse Rate 78 78 75 Respiratory Rate 16 16 20 Blood Pressure 153/60 H 131/82 Pulse Oximetry 98 95 100 Intake/Output Intake/Output: Intake & Output 09/24/19 09/25/19 09/26/19 09/27/19 23:59 23:59 23:59 23:59 Intake Total 2900 1890 2665 200 Output Total 700 1850 2050 1000 Balance 2200 40 615 -800 Meds/Results Medications: Active Medications Generic Name Dose Route Start Last Admin Trade Name Freq PRN Reason Stop Dose Admin Dextrose 12.5 gm 09/24/19 19:07 Dextrose 50% Syringe IV PUSH PRN PRN Hypoglycemia Protocol Glucagon 1 mg 09/24/19 19:07 Glucagon For Inj IM PRN PRN Hypoglycemia Protocol Glucose 15 gm 09/24/19 19:07 Glutose 15 PO PRN PRN Hypoglycemia Protocol Dextrose 1,000 mls @ 100 mls/hr 09/24/19 19:07 Dextrose 5% 1,000 Ml IVPB PRN PRN Hypoglycemia Protocol Insulin Aspart 2 - 5 units 09/24/19 17:00 09/27/19 13:04 Novolog SUB-Q 2 units TIDWM [facility] Administration Protocol Ondansetron HCl 4 mg 09/24/19 13:24 09/25/19 02:19 Zofran Inj IV PUSH 4 mg Q4H PRN Administration Nausea Pantoprazole Sodium 40 mg 09/25/19 21:00 09/27/19 08:31 Protonix Iv IV PUSH 40 mg Q12HR CARL Administration Radiology Results: ITS Impressions Abdomen/Pelvis CT 09/24/19 11:59 IMPRESSION: 1. No acute intra-abdominal findings. 2. Moderate sigmoid predominant colonic diverticulosis. 3. Other chronic findings. Upper Quadrant Ultrasound 09/25/19 16:20 IMPRESSION: 1: Hepatic steatosis. 2: Gallbladder is surgically absent.
[2019-09-27 17:41] LABS: Glucose Point of Care 121 (65-105)
[2019-09-27 21:46] VITALS: BP 132/55; PULSE 84; RESP 16; TEMP 36.9; O2SAT 98
[2019-09-27 21:56] LABS: Glucose Point of Care 140 (65-105)
[2019-09-28 06:00] VITALS: BP 156/46; PULSE 80; RESP 16; TEMP 36.7; O2SAT 94
[2019-09-28 08:00] VITALS: PULSE 80; RESP 16; O2SAT 94
[2019-09-28] MEDS: PANTOPRAZOLE SODIUM IV 40 MG VIAL IV PUSH ×2 (08:58→20:28)
--- NOTE | 2019-09-28 09:03 | WPDANESPN ---
Anes - Prog Note Post-Op Date/Time: 09/28/19 09:03 Cardiovascular status: normal Respiratory status: normal Airway patency: baseline Mental status: baseline Post-Op hydration status: normal Vital Signs: Last Vital Signs Temp 36.7 C 09/28/19 06:00 Pulse 80 09/28/19 06:00 Resp 16 09/28/19 06:00 BP 156/46 H 09/28/19 06:00 Pulse Ox 94 09/28/19 06:00 I/O: Intake & Output 09/27/19 09/28/19 09/28/19 23:59 07:59 15:59 Intake Total 650 150 Output Total 300 300 Balance 350 -150 Laboratory Tests 09/25/19 05:09 09/27/19 05:14 09/27/19 09/27/19 09/27/19 11:35 17:23 21:20 POC Capillary Glucose 249 H 121 H 140 H Post-procedural complaints: none Patient Feedback: Patient satisfied with anesthetic care.
[2019-09-28 09:10] LABS: Glucose Point of Care 164 (65-105)
--- NOTE | 2019-09-28 09:28 | WPDGIPROGNO ---
Progress Note: A&P Assessment and Plan (1) Pancreatitis: Qualifiers: Acute pancreatitis complication: unspecified Chronicity: acute Pancreatitis type: other Qualified Code(s): K85.80 - Other acute pancreatitis without necrosis or infection Code(s): K85.90 - Acute pancreatitis without necrosis or infection, unspecified Status: Acute Assessment and Plan: probably idiopathic and mild, normal liver enzymes, she had previous cholecystectomy ok to advance diet egd by Dr Shi was unremarkable. (2) Elevated lipase: Code(s): R74.8 - Abnormal levels of other serum enzymes Status: Acute Assessment and Plan: trending down. (3) Type II diabetes mellitus: Qualifiers: Diabetes mellitus complication status: with hyperglycemia Diabetes mellitus termite exterminator insulin use: unspecified shelter insulin use status Qualified Code(s): E11.65 - Type 2 diabetes mellitus with hyperglycemia Code(s): E11.9 - Type 2 diabetes mellitus without complications Status: Chronic Subjective Date/time seen: 09/28/19 09:28 Interval history: still ruq pain but better, no nausea or vomiting, she is hungry Review of Systems Review of Systems: All systems reviewed & are unremarkable except as noted in HPI and below Exam Const: General: comfortable and no acute distress HENMT: General nose exam: Normal nares present Eyes: General: appearance normal, both eyes and all related structures Neck: Neck: no JVD Resp: Auscultation: clear to auscultation bilaterally Cardio: Rate: regular rate Rhythm: regular rhythm GI: Inspection: non-distended and scar (surgical scar) GI Palp: Yes Soft to palpation, No Firmness to palpation present (GI) and No Guarding due to palpation present (GI) Auscultation: normal bowel sounds Skin: General skin exam: normal color Neuro: General: gait normal Speech: normal speech Extrem: General: normal to inspection Psych: Mental Status: mental status grossly normal Objective Data Vital Signs Vital Signs: Vital Signs - 24 hr 09/27/19 14:00 09/27/19 21:46 09/28/19 06:00 Temperature 98.0 F 98.4 F 98.0 F Pulse Rate 78 84 80 Respiratory Rate 17 16 16 Blood Pressure 144/50 H 132/55 L 156/46 H Pulse Oximetry 97 98 94 Intake/Output Intake/Output: Intake & Output 09/25/19 09/26/19 09/27/1920 23:59 23:59 23:59 23:59 Intake Total 1890 2665 1330 150 Output Total 1849 2049 1300 300 Balance 40 615 30 -150 Meds/Results Medications: Active Medications Generic Name Dose Route Start Last Admin Trade Name Freq PRN Reason Stop Dose Admin Dextrose 12.5 gm 09/24/19 19:07 Dextrose 50% Syringe IV PUSH PRN PRN Hypoglycemia Protocol Glucagon 1 mg 09/24/19 19:07 Glucagon For Inj IM PRN PRN Hypoglycemia Protocol Glucose 15 gm 09/24/19 19:07 Glutose 15 PO PRN PRN Hypoglycemia Protocol Dextrose 1,000 mls @ 100 mls/hr 09/24/19 19:07 Dextrose 5% 1,000 Ml IVPB PRN PRN Hypoglycemia Protocol Insulin Aspart 2 - 5 units 09/24/19 17:00 09/27/19 18:14 Novolog SUB-Q Not Given TIDWM [facility] Protocol Ondansetron HCl 4 mg 09/24/19 13:24 09/25/19 02:19 Zofran Inj IV PUSH 4 mg Q4H PRN Administration Nausea Pantoprazole Sodium 40 mg 09/25/19 21:00 09/28/19 08:58 Protonix Iv IV PUSH 40 mg Q12HR CARL Administration Radiology Results: ITS Impressions Abdomen/Pelvis CT 09/24/19 11:59 IMPRESSION: 1. No acute intra-abdominal findings. 2. Moderate sigmoid predominant colonic diverticulosis. 3. Other chronic findings. Upper Quadrant Ultrasound 09/25/19 16:20 IMPRESSION: 1: Hepatic steatosis. 2: Gallbladder is surgically absent. Labs Labs: Laboratory Results - last 24 hr 09/27/19 09/27/19 09/27/19 11:35 17:23 21:20 POC Capillary Glucose 249 H 121 H 140 H 09/28/19 0
--- NOTE | 2019-09-28 12:51 | PM.IMPN ---
Progress Note: A&P Assessment and Plan (1) Acute bilateral upper abdominal pain: Code(s): R10.11 - Right upper quadrant pain; R10.12 - Left upper quadrant pain Status: Acute Assessment and Plan: Lipase elevated to [address] scan showing no radiographic evidence of pancreatitis but clinically appears to have pancreatitis. Lipase trending down to 900 yesterday and abd pain has resolved. EGD normal. Patient may have passed biliary stone/sludge but RUQ US showing no dilated duct. Tolerating soft, low fat diet. Follow clinically. Continue PPI. Okay for discharge if bed is available. (2) Elevated lipase: Code(s): R74.8 - Abnormal levels of other serum enzymes Status: Acute Assessment and Plan: As above. Continue to monitor serum lipase. 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 Continue Accuchecks with SSI Coverage. Hypolgycemic protocol in place. Continue to hold metformin for now. Resume when GI symptoms have completely resolved. (4) GERD (gastroesophageal reflux disease): Code(s): K21.9 - Gastro-esophageal reflux disease without esophagitis Status: Acute Assessment and Plan: EGD negative. Continue Protonix. (5) Myositis: Code(s): M60.9 - Myositis, unspecified Status: Acute Assessment and Plan: On chronic pulsed steroids. Next dose is due on MondaySeptember 30. BP overall remaining stable. Continue PT/OT. Consider doing steroids tomorrow before discharge. Subjective Date/time seen: 09/28/19 12:51 Interval history: 79yo female here for abdominal pain. No nausea or vomiting. Able tolerate oral intake of a soft, low-fat diet. No postprandial abdominal pain. Is having stool urgency after eating. No diarrhea. Up to the chair but not walking. Exam Narrative: Exam Narrative: Gen - NARD sitting up in the chair Chest - CTA bilaterally, nml RR CV - RRR S1/S2 Abd -soft. Nontender. Nondistended. Positive bowel sounds. Ext - no pedal edema Psych - nml mood and affect. In good spirits today. Skin - warm and dry Objective Data Vital Signs Vital Signs: Vital Signs - 24 hr 09/27/19 14:00 09/27/19 21:46 09/28/19 06:00 Temperature 98.0 F 98.4 F 98.0 F Pulse Rate 78 84 80 Respiratory Rate 17 16 16 Blood Pressure 144/50 H 132/55 L 156/46 H Pulse Oximetry 97 98 94 09/28/19 08:00 Temperature Pulse Rate 80 Respiratory Rate 16 Blood Pressure Pulse Oximetry 94 Intake/Output Intake/Output: Intake & Output 09/25/19 09/26/19 09/27/19 09/28/19 23:59 23:59 23:59 23:59 Intake Total 1890 2665 1330 370 Output Total 1850 2050 1300 300 Balance 40 615 30 70 Meds/Results Medications: Active Medications Generic Name Dose Route Start Last Admin Trade Name Freq PRN Reason Stop Dose Admin Dextrose 12.5 gm 09/24/19 19:07 Dextrose 50% Syringe IV PUSH PRN PRN Hypoglycemia Protocol Glucagon 1 mg 09/24/19 19:07 Glucagon For Inj IM PRN PRN Hypoglycemia Protocol Glucose 15 gm 09/24/19 19:07 Glutose 15 PO PRN PRN Hypoglycemia Protocol Dextrose 1,000 mls @ 100 mls/hr 09/24/19 19:07 Dextrose 5% 1,000 Ml IVPB PRN PRN Hypoglycemia Protocol Insulin Aspart 2 - 5 units 09/24/19 17:00 09/27/19 18:14 Novolog SUB-Q Not Given TIDWM [facility] Protocol Ondansetron HCl 4 mg 09/24/19 13:24 09/25/19 02:19 Zofran Inj IV PUSH 4 mg Q4H PRN Administration Nausea Pantoprazole Sodium 40 mg 09/25/19 21:00 09/28/19 08:58
[2019-09-28 12:56] LABS: Glucose Point of Care 166 (65-105)
[2019-09-28 14:00] VITALS: BP 132/50; PULSE 94; RESP 18; TEMP 36.4; O2SAT 98
--- NOTE | 2019-09-28 16:38 | PCPTNOTE ---
The patient treatment was not able to be completed on 09/28/2019. Will plan to continue treatment per plan of care.
--- NOTE | 2019-09-28 16:48 | PCOTNOTE ---
The patient treatment was not able to be completed on [09/28/19] due to [short of staff]. Will plan to continue treatment per plan of care.
[2019-09-28 17:48] LABS: Glucose Point of Care 143 (65-105)
[2019-09-28 22:00] VITALS: BP 125/56; PULSE 94; RESP 18; TEMP 37.2; O2SAT 100
[2019-09-28 22:11] LABS: Glucose Point of Care 216 (65-105)
[2019-09-29 05:38] VITALS: BP 137/85; PULSE 76; RESP 20; TEMP 36.2; O2SAT 98
[2019-09-29] MEDS: PANTOPRAZOLE SODIUM IV 40 MG VIAL IV PUSH (08:38)
--- NOTE | 2019-09-29 09:20 | PC.NURSE ---
Attempted to take patient to the bathroom to urinate, patient was upset and requested to use bedpan instead. Educated patient on activity goals and benefits and patient still refused and requested the bedpan.
[2019-09-29 10:40] LABS: Glucose Point of Care 182 (65-105)
--- NOTE | 2019-09-29 11:54 | WPDGIPROGNO ---
Progress Note: A&P Assessment and Plan (1) Pancreatitis: Qualifiers: Chronicity: acute Pancreatitis type: other Acute pancreatitis complication: unspecified Qualified Code(s): K85.80 - Other acute pancreatitis without necrosis or infection Code(s): K85.90 - Acute pancreatitis without necrosis or infection, unspecified Status: Acute Assessment and Plan: probably idiopathic and mild, normal liver enzymes, she had previous cholecystectomy tolerating diet egd by Dr Shi was unremarkable. (2) Elevated lipase: Code(s): R74.8 - Abnormal levels of other serum enzymes Status: Acute Assessment and Plan: trending down. (3) Type II diabetes mellitus: Qualifiers: Diabetes mellitus shelter insulin use: unspecified shelter insulin use status Diabetes mellitus complication status: with hyperglycemia Qualified Code(s): E11.65 - Type 2 diabetes mellitus with hyperglycemia Code(s): E11.9 - Type 2 diabetes mellitus without complications Status: Chronic (4) Myositis: Qualifiers: Myositis type: unspecified type Myositis location: unspecified site Qualified Code(s): M60.9 - Myositis, unspecified Code(s): M60.9 - Myositis, unspecified Status: Acute Assessment and Plan: she has been getting iv steroids for years, she is due to have another dose tomorrow per Subjective Date/time seen: 09/29/19 11:54 Interval history: less pain, no more diarrhea. Family is here. Review of Systems Review of Systems: All systems reviewed & are unremarkable except as noted in HPI and below Exam Const: General: comfortable and no acute distress HENMT: General nose exam: Normal nares present Eyes: General: appearance normal, both eyes and all related structures Neck: Neck: no JVD Resp: Auscultation: clear to auscultation bilaterally Cardio: Rate: regular rate Rhythm: regular rhythm GI: Inspection: non-distended and scar (surgical scar) GI Palp: Yes Soft to palpation, No Firmness to palpation present (GI) and No Guarding due to palpation present (GI) Auscultation: normal bowel sounds Skin: General skin exam: normal color Neuro: General: gait normal Speech: normal speech Extrem: General: normal to inspection Psych: Mental Status: mental status grossly normal Objective Data Vital Signs Vital Signs: Vital Signs - 24 hr 09/28/19 14:00 09/28/19 22:00 09/29/19 05:38 Temperature 97.6 F 98.9 F 97.2 F L Pulse Rate 94 94 76 Respiratory Rate 18 18 20 Blood Pressure 132/50 L 125/56 L 137/85 Pulse Oximetry 98 100 98 Intake/Output Intake/Output: Intake & Output 09/26/19 09/27/19 09/28/19 09/29/19 23:59 23:59 23:59 23:59 Intake Total 2665 1330 960 490 Output Total 2050 1300 700 600 Balance 615 30 260 -110 Meds/Results Medications: Active Medications Generic Name Dose Route Start Last Admin Trade Name Freq PRN Reason Stop Dose Admin Acetaminophen 650 mg 09/28/19 20:13 Tylenol Tablet PO Q6H PRN Mild Pain (1-3) or Fever Dextrose 12.5 gm 09/24/19 19:07 Dextrose 50% Syringe IV PUSH PRN PRN Hypoglycemia Protocol Glucagon 1 mg 09/24/19 19:07 Glucagon For Inj IM PRN PRN Hypoglycemia Protocol Glucose 15 gm 09/24/19 19:07 Glutose 15 PO PRN PRN Hypoglycemia Protocol Dextrose 1,000 mls @ 100 mls/hr 09/24/19 19:07 Dextrose 5% 1,000 Ml IVPB PRN PRN Hypoglycemia Protocol Insulin Aspart 2 - 5 units 09/24/19 17:00 09/29/19 08:38 Novolog SUB-Q Not Given TIDWM [facility] Protocol Ondansetron HCl 4 mg 09/24/19 13:24 09/25/19 02:19 Zofran Inj IV PUSH 4 mg Q4H PRN Administration Nausea Pantoprazole Sodium 40 mg 09/25/19 21:00 09/29/19 08:38 Protonix Iv IV PUSH 40 mg Q12HR CARL Administration Radiology Results: ITS Impressions Abdomen/Pelvis CT 09/24/19 11:59 IMPRESSION:
[2019-09-29 12:29] LABS: Glucose Point of Care 202 (65-105)
[2019-09-29] MEDS: INSULIN ASPART (*BKC) 100 UNITS/ML SUB-Q (12:42)
[2019-09-29 14:00] VITALS: BP 145/58; PULSE 86; RESP 18; TEMP 36.6; O2SAT 99
--- NOTE | 2019-09-29 14:51 | PM.IMPN ---
Progress Note: A&P Assessment and Plan (1) Acute bilateral upper abdominal pain: Code(s): R10.11 - Right upper quadrant pain; R10.12 - Left upper quadrant pain Status: Acute Assessment and Plan: Lipase elevated to [address] scan showing no radiographic evidence of pancreatitis but clinically appears to have pancreatitis. Lipase trending down to 900 and abd pain has resolved. EGD normal. Patient may have passed biliary stone/sludge but RUQ US showing no dilated duct. Tolerating soft, low fat diet. Follow clinically. Continue PPI. Okay for discharge when SNF bed is available. (2) Elevated lipase: Code(s): R74.8 - Abnormal levels of other serum enzymes Status: Acute Assessment and Plan: As above. Continue to monitor serum lipase. (3) Type II diabetes mellitus: Qualifiers: Diabetes mellitus senior care insulin use: unspecified termite treater helper insulin use status Diabetes mellitus complication status: with hyperglycemia Qualified Code(s): E11.65 - Type 2 diabetes mellitus with hyperglycemia Code(s): E11.9 - Type 2 diabetes mellitus without complications Status: Chronic Assessment and Plan: Glucose reviewed on 09/29/19. Glucose in the 200's at times now. Will resume Metformin. Continue Accuchecks with SSI Coverage. Hypolgycemic protocol in place. (4) GERD (gastroesophageal reflux disease): Code(s): K21.9 - Gastro-esophageal reflux disease without esophagitis Status: Acute Assessment and Plan: EGD negative. Continue Protonix and change to oral route. (5) Myositis: Qualifiers: Myositis type: unspecified type Myositis location: unspecified site Qualified Code(s): M60.9 - Myositis, unspecified Code(s): M60.9 - Myositis, unspecified Status: Acute Assessment and Plan: On chronic pulsed steroids. Next dose is due tomorrow on MondaySeptember 30. BP overall remaining stable. Continue PT/OT. Subjective Date/time seen: 09/29/19 14:51 Interval history: 79yo female here for abdominal pain. Slight abdominla pain last night but able to sleep okay. Eating beter but has trouble chewing due to denture pain. She is taking in soft foods. No CP or SB. No further symptoms of stool urgency. Exam Narrative: Exam Narrative: Gen - NARD sitting up in the chair Chest - few basilar rhonchi o/w clear. Nml RR CV - RRR S1/S2 Abd -soft. Nontender. Nondistended. Positive bowel sounds. Ext - no pedal edema Psych - nml mood and affect. Pleasant and cooperative Skin - warm and dry Objective Data Vital Signs Vital Signs: Vital Signs - 24 hr 09/28/19 22:00 09/29/19 05:38 Temperature 98.9 F 97.2 F L Pulse Rate 94 76 Respiratory Rate 18 20 Blood Pressure 125/56 L 137/85 Pulse Oximetry 100 98 Intake/Output Intake/Output: Intake & Output 09/26/19 09/27/19 09/28/19 09/29/19 23:59 23:59 23:59 23:59 Intake Total 2665 1330 960 490 Output Total 2050 1300 700 600 Balance 615 30 260 -110 Meds/Results Medications: Active Medications Generic Name Dose Route Start Last Admin Trade Name Freq PRN Reason Stop Dose Admin Acetaminophen 650 mg 09/28/19 20:13 Tylenol Tablet PO Q6H PRN Mild Pain (1-3) or Fever Dextrose 12.5 gm 09/24/19 19:07 Dextrose 50% Syringe IV PUSH PRN PRN Hypoglycemia Protocol Glucagon 1 mg 09/24/19 19:07 Glucagon For Inj IM PRN PRN Hypoglycemia Protocol Glucose 15 gm 09/24/19 19:07 Glutose 15 PO PRN PRN Hypoglycemia Protocol Dextrose 1,000 mls @ 100 mls/hr 09/24/19 19:07 Dextrose 5% 1,000 Ml IVPB PRN PRN Hypoglycemia Protocol Insulin Aspart 2 - 5 units 09/24/19 17:00 09/29/19 12:42 Novolog SUB-Q 2 units TIDWM CARL Administration Protocol Ondansetron HCl 4 mg 09/24/19 13:24 09/25/19 02:19 Zofran Inj IV PUSH 4 mg Q4H PRN Administra
--- NOTE | 2019-09-29 16:51 | PCOTNOTE ---
The patient treatment was not able to be completed on 09/29/19
[2019-09-29] MEDS: POTASSIUM CHLORIDE 10 MEQ TABLET.ER PO (17:29)
[2019-09-29] MEDS: metFORMIN HCL 500 MG TABLET 1500 MG PO (17:30)
[2019-09-29 18:45] LABS: Glucose Point of Care 169 (65-105)
[2019-09-29] MEDS: ACETAMINOPHEN 325 MG TABLET 650 MG PO (20:33)
[2019-09-29 21:22] LABS: Glucose Point of Care 234 (65-105)
[2019-09-29 22:00] VITALS: BP 123/65; PULSE 84; RESP 20; TEMP 36; O2SAT 98
[2019-09-30 06:00] VITALS: BP 124/59; PULSE 96; RESP 18; TEMP 36.1; O2SAT 95
--- NOTE | 2019-09-30 07:10 | WPDGIPROGNO ---
Progress Note: A&P Additional Plan Patient alert this morning. Only notes very mild epigastric discomfort. Tolerating diet. She still has a poor appetite however. Physical exam reveals her to be alert. Vital signs stable. HEENT exam she is anicteric. Lungs are clear to auscultation and percussion. Abdomen is soft. Minimal epigastric discomfort. Labs reveal no recent lipase. LFTs are normal. Impression 1. Acute pancreatitis. Clinically improving. Agree with low-fat diet. Increase activity if possible. Follow-up lipase at some point may be prudent. Etiology of pancreatitis appears to be idiopathic. 2. History of cholecystectomy. No evidence of gallstones by any test today. Plan is to continue low-fat diet. Encourage activity. Hopefully discharge soon. Subjective Date/time seen: 09/30/19 07:10 Objective Data Vital Signs Vital Signs: Vital Signs - 24 hr 09/29/19 14:00 09/29/19 22:00 09/30/19 06:00 Temperature 36.6 C 36.0 C L 36.1 C L Pulse Rate 86 84 96 Respiratory Rate 18 20 18 Blood Pressure 145/58 H 123/65 124/59 L Pulse Oximetry 99 98 95 Intake/Output Intake/Output: Intake & Output 09/27/19 09/28/19 09/29/19 09/30/19 23:59 23:59 23:59 23:59 Intake Total 1330 960 990 150 Output Total 6978 920 3090 650 Balance 30 260 -10 -500 Meds/Results Medications: Active Medications Generic Name Dose Route Start Last Admin Trade Name Freq PRN Reason Stop Dose Admin Acetaminophen 650 mg 09/28/19 20:13 09/29/19 20:33 Tylenol Tablet PO 650 mg Q6H PRN Administration Mild Pain (1-3) or Fever Dextrose 12.5 gm 09/24/19 19:07 Dextrose 50% Syringe IV PUSH PRN PRN Hypoglycemia Protocol Fenofibrate 160 mg 09/30/19 09:00 Fenofibrate PO DAILY CARL Glucagon 1 mg 09/24/19 19:07 Glucagon For Inj IM PRN PRN Hypoglycemia Protocol Glucose 15 gm 09/24/19 19:07 Glutose 15 PO PRN PRN Hypoglycemia Protocol Dextrose 1,000 mls @ 100 mls/hr 09/24/19 19:07 Dextrose 5% 1,000 Ml IVPB PRN PRN Hypoglycemia Protocol Methylprednisolone Sodium 100 mls @ 200 mls/hr 09/30/19 09:00 Succinate 700 mg/ Dextrose IVPB QAM [facility] Insulin Aspart 2 - 5 units 09/24/19 17:00 09/29/19 17:28 Novolog SUB-Q Not Given TIDWM [facility] Protocol Metformin HCl 1,500 mg 09/29/19 18:00 09/29/19 17:30 Glucophage PO 1,500 mg EVENING CARL Administration Ondansetron HCl 4 mg 09/24/19 13:24 09/25/19 02:19 Zofran Inj IV PUSH 4 mg Q4H PRN Administration Nausea Pantoprazole Sodium 40 mg 09/30/19 09:00 Protonix PO QAM [facility] Potassium Chloride 10 meq 09/29/19 17:00 09/29/19 17:29 Kcl Tablet PO 10 meq BIDWM CARL Administration Radiology Results: ITS Impressions Abdomen/Pelvis CT 09/24/19 11:59 IMPRESSION: 1. No acute intra-abdominal findings. 2. Moderate sigmoid predominant colonic diverticulosis. 3. Other chronic findings. Upper Quadrant Ultrasound 09/25/19 16:20 IMPRESSION: 1: Hepatic steatosis. 2: Gallbladder is surgically absent. Labs Labs: Laboratory Results - last 24 hr 09/29/19 09/29/19 09/29/19 08:38 12:24 17:28 POC Capillary Glucose 182 H 202 H 169 H 09/29/19 20:26 POC Capillary Glucose 234 H
[2019-09-30] MEDS: FENOFIBRATE 160 MG TABLET PO (07:50)
[2019-09-30] MEDS: PANTOPRAZOLE 40 MG TABLET PO (07:50)
[2019-09-30] MEDS: POTASSIUM CHLORIDE 10 MEQ TABLET.ER PO ×2 (07:50→16:48)
[2019-09-30 07:57] LABS: Glucose Point of Care 179 (65-105)
[2019-09-30 12:06] LABS: Glucose Point of Care 247 (65-105)
[2019-09-30] MEDS: INSULIN ASPART (*BKC) 100 UNITS/ML SUB-Q (12:46)
[2019-09-30 14:00] VITALS: BP 131/70; PULSE 98; RESP 14; TEMP 36.7; O2SAT 98
--- NOTE | 2019-09-30 15:21 | PM.DS ---
DS: Diagnosis Admitting Diagnosis Admitting Diagnosis: Right upper quadrant pain Discharge Diagnosis (1) Acute bilateral upper abdominal pain: Code(s): R10.11 - Right upper quadrant pain; R10.12 - Left upper quadrant pain Status: Acute Assessment and Plan: Lipase elevated to [address] scan showing no radiographic evidence of pancreatitis but clinically appears to have pancreatitis. Lipase trending down to 900 and abd pain has resolved. EGD normal. Patient may have passed biliary stone/sludge but RUQ US showing no dilated duct. Tolerating soft, low fat diet. (2) Elevated lipase: Code(s): R74.8 - Abnormal levels of other serum enzymes Status: Acute Assessment and Plan: As above. Continue to monitor serum lipase. (3) Type II diabetes mellitus: Qualifiers: Diabetes mellitus long-term insulin use: unspecified long-term insulin use status Diabetes mellitus complication status: with hyperglycemia Qualified Code(s): E11.65 - Type 2 diabetes mellitus with hyperglycemia Code(s): E11.9 - Type 2 diabetes mellitus without complications Status: Chronic Assessment and Plan: Glucose monitored closely. Glucose in the 200's at times. We continued Metformin once she was eating. Accuchecks with SSI Coverage. Hypolgycemic protocol in place. (4) GERD (gastroesophageal reflux disease): Code(s): K21.9 - Gastro-esophageal reflux disease without esophagitis Status: Acute Assessment and Plan: EGD negative. We continued Protonix. (5) Myositis: Qualifiers: Myositis type: unspecified type Myositis location: unspecified site Qualified Code(s): M60.9 - Myositis, unspecified Code(s): M60.9 - Myositis, unspecified Status: Acute Assessment and Plan: On chronic pulsed steroids. She received a dose on MondaySeptember 30. She had PT/OT here. DS: Summary Hospital Course Reason for hospitalization: 79yo female here for abd pain. Please see H&P for details Hospital Course: As above. Time Spent with Patient Time attestation: Total time spent providing and/or coordinating discharge services:32 minutes Time spent: Greater than 30 minutes Specific discharge activities: Discussed with case management. Discussed with . Also contacted Dr. Benavides who has accepted the patient for skilled facility placement. Exam Narrative: Exam Narrative: Gen - NARD sitting up in the chair Chest -lungs clear to auscultation. CV - RRR S1/S2 Abd -soft. Nontender. Nondistended. Positive bowel sounds. Ext - no pedal edema Psych - nml mood and affect. Pleasant and cooperative Skin - warm and dry DS: Data Data Completed and Pending Labs on day of discharge: Labs from last 24 hours 09/30/19 09/30/19 09/29/19 12:02 07:49 20:26 POC Capillary Glucose 247 H 179 H 234 H 09/29/19 17:28 POC Capillary Glucose 169 H Discharge Plan Discharge Attending physician on discharge: Steve Park Consulting providers: Hari Shi Discharging Clinician: Steve Park Anticipated Discharge Date/Time: 09/30/19 15:25 Patient Disposition: SNF Activity: as tolerated Diet: diabetic, low fat and other - see discharge instructions Discharge Instructions: Continue soft and bite size diet level 6. Stand Alone Forms: General Discharge Information Follow-up/Referrals: Alessandra Brizuela MD [Primary Care Provider] - 1 Week Hari Shi MD [Physician] - Follow Up with Primary Dr Discharge Medications: New acetaminophen [Mapap (acetaminophen)] 325 mg Tablet 650 mg PO Q6H PRN (Reason: Mild Pain (1-3) Or Fever) Qty: 30 RF: 0 Continued metformin 500 mg tablet 1,500 mg DAILY RF: 0 potassium chloride 10 mEq tablet extended release 10 meq PO BIDWM RF: 0 Caltrate + D3 Plus Minerals 1,500 mg 1,500 mg IV PRN PRN (Reason: PRN INFUSION PER PATIENT) RF: 0
--- NOTE | 2019-09-30 16:27 | PC.NURSE ---
glucose 533 on accucheck, Dr Park notified will get stat glucose
[2019-09-30 16:35] LABS: Glucose Point of Care > 500 (65-105)
[2019-09-30] MEDS: metFORMIN HCL 500 MG TABLET 1500 MG PO (16:48)
[2019-09-30 17:11] LABS: Glucose 580 mg/dL (65-105)
[2019-09-30] MEDS: INSULIN ASPART (*BKC) 100 UNITS/ML 8 UNITS SUB-Q ×2 (17:27→21:57)
[2019-09-30 21:27] LABS: Glucose Point of Care 402 (65-105)
[2019-09-30] MEDS: ACETAMINOPHEN 325 MG TABLET 650 MG PO (21:56)
[2019-09-30 21:59] VITALS: BP 138/55; PULSE 97; RESP 20; TEMP 36.6; O2SAT 93
[2019-10-01 00:02] LABS: Glucose Point of Care 345 (65-105)
[2019-10-01] MEDS: INSULIN ASPART (*BKC) 100 UNITS/ML SUB-Q ×3 (00:26→13:19)
[2019-10-01 04:38] LABS: Glucose Point of Care 217 (65-105)
[2019-10-01 06:00] VITALS: BP 158/68; PULSE 91; RESP 18; TEMP 36.3; O2SAT 93
[2019-10-01] MEDS: PANTOPRAZOLE 40 MG TABLET PO (08:19)
[2019-10-01] MEDS: FENOFIBRATE 160 MG TABLET PO (08:19)
[2019-10-01] MEDS: POTASSIUM CHLORIDE 10 MEQ TABLET.ER PO (08:19)
[2019-10-01 08:48] LABS: Glucose Point of Care 224 (65-105)
--- NOTE | 2019-10-01 10:37 | WPDGIPROGNO ---
Progress Note: A&P Additional Plan Patient more comfortable today. She denies abdominal pain. Tolerating diet. Physical exam reveals her to be alert. Afebrile. Vital signs stable. Abdomen is soft and no tenderness noted today. Impression 1. Acute pancreatitis. Now resolved. Appears to be consistent with idiopathic etiology. Plan is for low-fat diet. Increase activity as tolerated I understand she is to be discharged today. Subjective Date/time seen: 10/01/19 10:37 Objective Data Vital Signs Vital Signs: Vital Signs - 24 hr 09/30/19 14:00 09/30/19 21:59 10/01/19 06:00 Temperature 36.7 C 36.6 C 36.3 C L Pulse Rate 98 97 91 Respiratory Rate 14 20 18 Blood Pressure 131/70 138/55 L 158/68 H Pulse Oximetry 98 93 93 Intake/Output Intake/Output: Intake & Output 09/28/19 09/29/19 09/30/19 10/01/19 23:59 23:59 23:59 23:59 Intake Total 960 990 970 Output Total 700 1000 1550 600 Balance 260 10 -990 -600 Meds/Results Medications: Active Medications Generic Name Dose Route Start Last Admin Trade Name Freq PRN Reason Stop Dose Admin Acetaminophen 650 mg 09/28/19 20:13 09/30/19 21:56 Tylenol Tablet PO 650 mg Q6H PRN Administration Mild Pain (1-3) or Fever Dextrose 12.5 gm 09/24/19 19:07 Dextrose 50% Syringe IV PUSH PRN PRN Hypoglycemia Protocol Fenofibrate 160 mg 09/30/19 09:00 10/01/19 08:19 Fenofibrate PO 160 mg DAILY CARL Administration Glucagon 1 mg 09/24/19 19:07 Glucagon For Inj IM PRN PRN Hypoglycemia Protocol Glucose 15 gm 09/24/19 19:07 Glutose 15 PO PRN PRN Hypoglycemia Protocol Dextrose 1,000 mls @ 100 mls/hr 09/24/19 19:07 Dextrose 5% 1,000 Ml IVPB PRN PRN Hypoglycemia Protocol Insulin Aspart 2 - 5 units 09/24/19 17:00 10/01/19 09:03 Novolog SUB-Q 2 units TIDWM CARL Administration Protocol Metformin HCl 1,500 mg 09/29/19 18:00 09/30/19 16:48 Glucophage PO 1,500 mg EVENING CARL Administration Ondansetron HCl 4 mg 09/24/19 13:24 09/25/19 02:19 Zofran Inj IV PUSH 4 mg Q4H PRN Administration Nausea Pantoprazole Sodium 40 mg 09/30/19 09:00 10/01/19 08:19 Protonix PO 40 mg QAM CARL Administration Potassium Chloride 10 meq 09/29/19 17:00 10/01/19 08:19 Kcl Tablet PO 10 meq BIDWM CARL Administration Radiology Results: ITS Impressions Abdomen/Pelvis CT 09/24/19 11:59 IMPRESSION: 1. No acute intra-abdominal findings. 2. Moderate sigmoid predominant colonic diverticulosis. 3. Other chronic findings. Upper Quadrant Ultrasound 09/25/19 16:20 IMPRESSION: 1: Hepatic steatosis. 2: Gallbladder is surgically absent. Labs Labs: Laboratory Results - last 24 hr 09/30/19 09/30/19 09/30/19 12:02 16:21 16:33 Glucose 580 H* POC Capillary Glucose 247 H > 500 H* 09/30/19 09/30/19 10/01/19 21:22 23:58 04:35 Glucose POC Capillary Glucose 402 H 345 H 217 H 10/01/19 08:19 Glucose POC Capillary Glucose 224 H
[2019-10-01 12:56] LABS: Glucose Point of Care 243 (65-105)
--- NOTE | 2019-10-01 12:57 | PCDIET ---
Weekly nutritional screen. Patient is tolerating current diet with adequate intake (67% average). Level 6, low fat diet appropriate. No weight loss reported. Pt d/c today. No further nutrition needs at this time.
--- NOTE | 2019-10-01 13:55 | PM.IMPN ---
Progress Note: A&P Assessment and Plan (1) Acute bilateral upper abdominal pain: Code(s): R10.11 - Right upper quadrant pain; R10.12 - Left upper quadrant pain Status: Acute Assessment and Plan: Lipase elevated to [address] scan with no radiographic evidence of pancreatitis but clinically did appear to have. RUQ ultrasound with hepatic steatosis. Lipase decreased to 900 on last check. Appreciate help from GI. EGD on 09/26/2019 normal. Tolerating low-fat diet. Arrangements have been made for patient to go to SNF at [facility] on [address]. Will discharge this afternoon. (2) Elevated lipase: Code(s): R74.8 - Abnormal levels of other serum enzymes Status: Acute Assessment and Plan: As above. (3) Type II diabetes mellitus: Qualifiers: Diabetes mellitus complication status: with hyperglycemia Diabetes mellitus terminal make up operator insulin use: unspecified [facility] insulin use status Qualified Code(s): E11.65 - Type 2 diabetes mellitus with hyperglycemia Code(s): E11.9 - Type 2 diabetes mellitus without complications Status: Chronic Assessment and Plan: Discharge held yesterday with glucose greater than 500 after receiving pulsed steroids. Patient and has been reports they have not routinely checked her glucose after the pulsed steroids which she has been receiving for 18 years. Glucose trending down today. Continue metformin. Will need to continue to monitor at SNF. Insulin as needed. (4) GERD (gastroesophageal reflux disease): Qualifiers: Esophagitis presence: esophagitis presence not specified Qualified Code(s): K21.9 - Gastro-esophageal reflux disease without esophagitis Code(s): K21.9 - Gastro-esophageal reflux disease without esophagitis Status: Acute Assessment and Plan: EGD negative. Protonix continued with patient asymptomatic. (5) Myositis: Qualifiers: Myositis location: unspecified site Myositis type: unspecified type Qualified Code(s): M60.9 - Myositis, unspecified Code(s): M60.9 - Myositis, unspecified Status: Acute Assessment and Plan: Longstanding issue. Remains on chronic pulsed steroids. Received last dose on Monday, September 30, 2019. Continue PT/OT. (6) DVT prophylaxis: Code(s): Z29.9 - Encounter for prophylactic measures, unspecified Status: Acute Assessment and Plan: SCDs. Additional Plan DAte of service was 09/24/2019 at 8 pm. Time Spent With Patient Time with patient: 15 - 25 minutes Subjective Date/time seen: 10/01/19 13:55 Interval history: Date of Service: 10/01/2019. Admitted with upper abdominal pain. Known myositis. Discharge held yesterday due to elevated glucose level. Better today. present. Eager to go to rehab. Review of Systems Review of Systems: Narrative: Feeling better. Wants to go to rehab. Constitutional: Constitutional: Denies chills and Denies fever(s) ENT: Reports system reviewed and no additional complaints, except as documented Cardiovascular: Cardiovascular: Denies chest pain Respiratory: Respiratory: Denies dyspnea Gastrointestinal: Gastrointestinal: Denies abdominal pain Integumentary/Breasts: Skin/Breast: Denies rash Neurologic: Comments: Generalized weakness Psychiatric: Psychiatric: Denies anxiety and Denies confusion Exam Narrative: Exam Narrative: Awake and alert. Sitting in chair. Const: General: no acute distress HENMT: Mouth: Yes moist mucous membranes Neck: Neck: supple Lymphatic: lymphadenopathy not noted Resp: Auscultation: clear to auscultation bilaterally, no rales and no wheezes Cardio: Rate: regular rate Rhythm: regular rhythm GI: Inspection: non-distended GI Palp: Yes Soft to palpation and No Tenderness to palpation present (GI) Auscultation: normal bowel sounds Skin: General skin exam: no rashes or lesions noted Neuro: Other: Gen
--- NOTE | 2019-10-01 17:03 | PM.DS ---
DS: Diagnosis Admitting Diagnosis Admitting Diagnosis: Right upper quadrant pain Discharge Diagnosis (1) Acute bilateral upper abdominal pain: Code(s): R10.11 - Right upper quadrant pain; R10.12 - Left upper quadrant pain Status: Acute (2) Elevated lipase: Code(s): R74.8 - Abnormal levels of other serum enzymes Status: Acute (3) Type II diabetes mellitus: Qualifiers: Diabetes mellitus skilled nursing insulin use: unspecified long wall shear operator insulin use status Diabetes mellitus complication status: with hyperglycemia Qualified Code(s): E11.65 - Type 2 diabetes mellitus with hyperglycemia Code(s): E11.9 - Type 2 diabetes mellitus without complications Status: Chronic (4) GERD (gastroesophageal reflux disease): Qualifiers: Esophagitis presence: esophagitis presence not specified Qualified Code(s): K21.9 - Gastro-esophageal reflux disease without esophagitis Code(s): K21.9 - Gastro-esophageal reflux disease without esophagitis Status: Acute (5) Myositis: Qualifiers: Myositis type: unspecified type Myositis location: unspecified site Qualified Code(s): M60.9 - Myositis, unspecified Code(s): M60.9 - Myositis, unspecified Status: Acute DS: Summary Hospital Course Reason for hospitalization: Abdominal pain. Hospital Course: Date of Service of Discharge: October 01, 2019. History of Present Illness: Patient is an 79-year-old with diabetes, GERD and myositis who presented to the emergency room complaint of upper abdominal pain x4 days. No recent fever, chills or vomiting. She did however report nausea. No recent diarrhea. Last bowel movement 4 days earlier. Abdominal distension. Symptoms did worsen after eating the day before presentation at which time she only had chicken noodle soup. 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 She does have previous history of cholecystectomy at age 18 as well as past history of ischemic colitis. In the emergency room, patient was noted to have elevated lipase. Concern for clinical pancreatitis although not seen on imaging. As result of her findings, she was admitted for further evaluation and treatment. Course in Hospital: Admitted to the medical floor and initially placed NPO with IV hydration. Gastroenterology was consulted. Patient did undergo EGD on 09/26/2019 which was normal. Lipase was followed and did gradually improve. Patient was able to start oral diet after EGD and was tolerating low-fat diet by the time of discharge. She had no further abdominal pain. She was continued on Protonix throughout her stay. Patient's glucose levels were monitored. She was allowed to continue met 4 minutes and did have sliding scale insulin. Glucose was generally well controlled although she did have a reading greater than 500 on the initial intended day of discharge which was 09/30/2019. She had received her pulsed dose of IV Solu-Medrol 700 mg for myositis on that day as a result. Patient was given insulin and monitored. Patient did remain on the medical floor. Glucose did gradually decrease and was at an acceptable level by the time of discharge. She was seen by physical and occupational therapy during her stay. Arrangements were made for patient to go to rehab at [facility] in [place] after discharge. With patient now once again stable, she was able to be discharged to SNF on the afternoon of October 01, 2019. Status at Discharge Cognitive/behavioral status at discharge: Baseline cognitive status. Functional status at discharge: uses cane/walker Overall status at discharge: patient is progressing back to baseline Time Spent with Patient Time attestation: Total time spent providing and/or coordinating discharge services: 35 minutes. Time spent: Greater than 30 minutes Exam Narrative: Exam Narrative: Vital Signs Temp
== END 2019-10-01 16:45 | disposition swing bed (61) | DRG 440 ==
LOC: ANHED 13:34 → ANH2MED 16:19
PROVIDERS: Family Medicine; Internal Medicine Gastroenterology; Physician Assistant; Admitting Provider Internal Medicine; Emergency Provider General Practice; PCP Family Medicine; Visit Provider Hospitalist
PROC: 0DJ08ZZ Inspection of Upper Intestinal Tract, Via Natural or Artificial Opening Endoscopic (ICD-10-PCS; CPT 43235; principal; 2019-09-26 09:30)
DX: K85.00 Idiopathic acute pancreatitis without necrosis or infection (principal); M60.9 Myositis, unspecified; R74.8 Abnormal levels of other serum enzymes; E11.65 Type 2 diabetes mellitus with hyperglycemia; K21.9 Gastro-esophageal reflux disease without esophagitis; M81.0 Age-related osteoporosis without current pathological fracture; R63.0 Anorexia; Z68.28 Body mass index [BMI] 28.0-28.9, adult; Z90.49 Acquired absence of other specified parts of digestive tract
CPT/HCPCS: 36415; 51701; 74177; 76705; 80053; 80061; 80069; 81001; 82150; 82947; 83036; 83605; 83690; 83735; 85025; 96365; 97110; 97116; 97161; 97165; 97530; 97535; 99285; A9270; C9113; J0131; J1815; J2405; J2704; J2930; J7120; Q9967

== ENCOUNTER 2019-12-02 10:20 | Outpatient (RCR) | payer MEDICARE, SELFPAY ==
[2019-09-09 11:30] VITALS: BP 150/98; PULSE 77; RESP 15; O2SAT 96
[2019-09-20 11:15] VITALS: BP 122/68; PULSE 75; RESP 18; TEMP 37.1; O2SAT 96
[2019-09-20 13:15] VITALS: BP 141/46; PULSE 72; RESP 16; TEMP 37; O2SAT 95
[2019-11-21 10:30] VITALS: BP 214/54; PULSE 69; RESP 18; TEMP 37.4; O2SAT 98
[2019-11-21 11:58] VITALS: BP 125/63; PULSE 67; RESP 18; O2SAT 100
[2019-12-02 10:45] VITALS: BP 134/62; PULSE 80; RESP 14; TEMP 37.8; O2SAT 97
[2019-12-02 11:43] VITALS: BP 120/62; PULSE 76; RESP 16; TEMP 37.7; O2SAT 96
== END 2019-12-08 23:59 | disposition home or self-care (01) ==
LOC: ANHCPCTRAN 10:20
PROVIDERS: PCP Family Medicine; Visit Provider Family Medicine
DX: M33.22 Polymyositis with myopathy (principal)
CPT/HCPCS: 96365; 96374; J2930

== ENCOUNTER 2020-01-23 10:15 | Outpatient (RCR) | payer MEDICARE, SELFPAY ==
[2020-01-02 10:35] VITALS: BP 125/62; PULSE 72; RESP 20; TEMP 36.9; O2SAT 96
[2020-01-02 11:50] VITALS: BP 131/50; PULSE 68; RESP 20; TEMP 36.8; O2SAT 96
[2020-01-13 10:35] VITALS: BP 124/54; PULSE 74; RESP 20; TEMP 37.3; O2SAT 96
[2020-01-13 11:48] VITALS: BP 138/46; PULSE 65; RESP 20; TEMP 37; O2SAT 95
[2020-01-23 10:40] VITALS: BP 125/49; PULSE 79; RESP 16; TEMP 37.1; O2SAT 97
[2020-01-23 11:52] VITALS: BP 144/49; PULSE 70; RESP 16; TEMP 37.2; O2SAT 97
== END 2020-03-11 23:59 | disposition home or self-care (01) ==
LOC: ANHLAB 10:15
PROVIDERS: PCP Family Medicine; Visit Provider Family Medicine
DX: M33.22 Polymyositis with myopathy (principal)
CPT/HCPCS: 96365; J2930

== ENCOUNTER 2020-04-27 10:18 | Outpatient (RCR) | payer MEDICARE, SELFPAY ==
[2020-02-03 10:20] VITALS: BP 141/63; PULSE 80; RESP 16; TEMP 37.1; O2SAT 95
[2020-02-03 10:49] LABS: Basophils Percent Auto 0.4 % (0.2-1.2); Eosinophils Absolute Auto 0.1 K/mm3 (0-0.3); Eosinophils Percent Auto 1.6 % (0-4.4); Hematocrit 40.9 % (37.0-47.0); Hemoglobin 13.6 g/dL (12.0-15.0); Immature Granulocyte Absolute 0.05 K/mm3 (0.00-0.031); Immature Granulocyte Percent A 0.6 % (0-0.5); Lymphocytes Absolute Auto 1.59 K/mm3 (0.9-3.2); Lymphocytes Percent Auto 19.9 % (18.3-44.2); Mean Corpuscular HGB Conc 33.3 g/dl (32-36); Mean Corpuscular Volume 87.2 fl (80-100); Mean Platelet Volume 10.5 fl (7.4-10.4); Monocytes Absolute Auto 0.7 K/mm3 (0.1-0.6); Monocytes Percent Auto 8.3 % (2.6-8.5); Neutrophils Absolute Auto 5.5 K/mm3 (1.3-6.7); Neutrophils Percent Auto 69.2 % (45.5-73.1); Platelet Count Result 239 k/mm3 (150-375); Red Blood Count 4.69 M/mm3 (4.2-5.4); Red Cell Distribution Width 12.9 % (11.5-14.5)
[2020-02-03 11:04] LABS: Alanine Aminotransferase 22 U/L (4-35); Albumin Level 3.5 g/dL (3.5-5.1); Alkaline Phosphatase 86 U/L (38-126); Aspartate Amino Transferase 20 U/L (14-36); Bilirubin,Total 0.3 mg/dL (0.2-1.3); Blood Urea Nitrogen 18 mg/dL (7-17); Calcium 9.6 mg/dL (8.4-10.2); Carbon Dioxide 26 mmol/L (22-30); Chloride 102 mmol/L (98-107); Creatine Kinase 225 U/L (30-135); Estimated Glomerular Filt Rate > 60; Glucose 407 mg/dL (65-105); Sodium 133 mmol/L (137-145)
[2020-02-03 11:53] VITALS: BP 139/56; PULSE 72; RESP 16; TEMP 36.6; O2SAT 97
[2020-02-13 10:40] VITALS: BP 128/54; PULSE 74; RESP 16; TEMP 36.1; O2SAT 96
[2020-02-13 11:45] VITALS: BP 137/60; PULSE 73; RESP 16; TEMP 36.6; O2SAT 95
[2020-02-24 10:30] VITALS: BP 139/73; PULSE 76; RESP 16; TEMP 36.7; O2SAT 95
[2020-02-24 11:36] VITALS: BP 145/54; PULSE 73; RESP 16; TEMP 36.6; O2SAT 98
[2020-03-05 11:18] LABS: Basophils Percent Auto 0.3 % (0.2-1.2); Eosinophils Absolute Auto 0.1 K/mm3 (0-0.3); Eosinophils Percent Auto 1.8 % (0-4.4); Hematocrit 39.5 % (37.0-47.0); Hemoglobin 13.3 g/dL (12.0-15.0); Immature Granulocyte Absolute 0.05 K/mm3 (0.00-0.031); Immature Granulocyte Percent A 0.7 % (0-0.5); Lymphocytes Absolute Auto 1.47 K/mm3 (0.9-3.2); Lymphocytes Percent Auto 20.2 % (18.3-44.2); Mean Corpuscular HGB Conc 33.7 g/dl (32-36); Mean Corpuscular Hemoglobin 28.9 pg (26-34); Mean Corpuscular Volume 85.9 fl (80-100); Mean Platelet Volume 10.6 fl (7.4-10.4); Monocytes Absolute Auto 0.7 K/mm3 (0.1-0.6); Monocytes Percent Auto 9.2 % (2.6-8.5); Neutrophils Absolute Auto 4.9 K/mm3 (1.3-6.7); Neutrophils Percent Auto 67.8 % (45.5-73.1); Platelet Count Result 223 k/mm3 (150-375); Red Cell Distribution Width 13.3 % (11.5-14.5); White Blood Count 7.3 K/mm3 (4.5-10.0)
[2020-03-05 11:33] LABS: Alanine Aminotransferase 21 U/L (4-35); Albumin Level 3.5 g/dL (3.5-5.1); Alkaline Phosphatase 63 U/L (38-126); Anion Gap 11.1 mmol/L (7-16); Aspartate Amino Transferase 19 U/L (14-36); Bilirubin,Total 0.4 mg/dL (0.2-1.3); Blood Urea Nitrogen 8 mg/dL (7-17); Calcium 9.3 mg/dL (8.4-10.2); Carbon Dioxide 24 mmol/L (22-30); Chloride 101 mmol/L (98-107); Creatine Kinase 235 U/L (30-135); Estimated Glomerular Filt Rate > 60; Glucose 342 mg/dL (65-105); Potassium 4.1 mmol/L (3.4-5.0); Sodium 132 mmol/L (137-145)
[2020-03-16 10:35] VITALS: BP 125/54; PULSE 81; RESP 16; TEMP 37; O2SAT 96
[2020-03-16 11:50] VITALS: BP 128/53; PULSE 75; RESP 16; TEMP 36.8; O2SAT 97
[2020-03-26 10:30] VITALS: BP 118/62; PULSE 80; RESP 16; TEMP 37.1; O2SAT 95
[2020-03-26 11:35] VITALS: BP 113/79; PULSE 72; RESP 16; TEMP 36.9; O2SAT 97
[2020-04-06 10:30] VITALS: BP 122/61; PULSE 73; RESP 16; TEMP 37; O2SAT 97
[2020-04-06 11:35] VITALS: BP 135/57; PULSE 73; RESP 16; TEMP 36.7; O2SAT 95
[2020-04-16 10:45] VITALS: BP 116/49; PULSE 73; RESP 16; TEMP 36.9; O2SAT 97
[2020-04-16 12:10] VITALS: BP 133/72; PULSE 66; RESP 16; TEMP 36.8; O2SAT 96
[2020-04-27 10:40] VITALS: BP 114/60; PULSE 74; RESP 16; TEMP 37.2; O2SAT 96
[2020-04-27 11:45] VITALS: BP 121/36; PULSE 73; RESP 16; TEMP 37.3; O2SAT 95
== END 2020-05-03 23:59 | disposition home or self-care (01) ==
LOC: ANHCATHLAB 10:18
PROVIDERS: Family Medicine
DX: M33.22 Polymyositis with myopathy (principal)
CPT/HCPCS: 36415; 80053; 82550; 85025; 96365; J2930

== ENCOUNTER 2020-06-18 10:22 | Outpatient (RCR) | payer MEDICARE, SELFPAY ==
[2020-05-07 10:38] VITALS: BP 121/64; PULSE 70; RESP 16; TEMP 36.6; O2SAT 96
[2020-05-07 11:42] VITALS: BP 131/51; PULSE 69; RESP 16; TEMP 36.9; O2SAT 100
[2020-05-18 10:52] VITALS: BP 124/67; PULSE 76; RESP 15; O2SAT 97
[2020-05-28 10:25] VITALS: BP 143/60; PULSE 80; RESP 16; TEMP 36.5; O2SAT 96
[2020-06-08 10:59] VITALS: BP 108/73; PULSE 78; RESP 14; O2SAT 96
[2020-06-18 10:17] VITALS: BP 131/56; PULSE 76; RESP 16; TEMP 37; O2SAT 99
[2020-06-18 11:44] VITALS: BP 147/56; PULSE 74; RESP 16; TEMP 37.1; O2SAT 98
== END 2020-08-05 23:59 | disposition home or self-care (01) ==
LOC: ANHCPCTRAN 10:22
PROVIDERS: PCP Family Medicine; Visit Provider Family Medicine
DX: M33.22 Polymyositis with myopathy (principal)
CPT/HCPCS: 96365; J2930

== ENCOUNTER 2020-06-29 15:43 | Inpatient (IN) | payer MEDICARE, SELFPAY ==
--- NOTE | ~2020-06-29 | XR_ITS ---
EXAMINATION: XR chest 1V portable DATE: 06/29/2020 16:56 INDICATION: Altered mental status. TECHNIQUE: A single frontal view of the chest was obtained. COMPARISON: CT abdomen and pelvis 09/24/2019 FINDINGS: There is chronic mild elevation of right hemidiaphragm. There is mild atelectasis at the ri ght lung base. No pleural effusion or pneumothorax. The heart size is normal. Calcified right hilar a nd mediastinal lymph nodes are consistent with old granulomatous disease. IMPRESSION: 1. Mild atelectasis at right lung base. Reviewed, dictated and finalized at location A. BOLTER HELPER
--- NOTE | ~2020-06-29 | CT_ITS ---
EXAMINATION: CT brain wo con DATE: 06/29/2020 16:51 INDICATION: Confusion. TECHNIQUE: Computed tomography (CT) of the head was performed without intravenous contrast. The mA wa s adjusted according to patient size. Iterative reconstruction technique was employed. The dose-lengt h product was 1059.33 mGy-cm. COMPARISON: None FINDINGS: There is no intracranial hemorrhage, acute infarction, or abnormal intracranial mass lesion . The ventricles are normal in size. There is mild mucosal thickening in the paranasal sinuses. The m astoid air cells are normal. IMPRESSION: 1. Normal brain. Reviewed, dictated and finalized at location A. RITY ASSISTANT IMPRESSION: 1. Normal brain.
--- NOTE | 2020-06-29 16:17 | ECG_ITS ---
Measurements Intervals [place] Rate: 84 P: 78 FL: 191 QRS: -53 QRSD: 101 T: 48 QT: 412 QTc: 487 Interpretive Statements SINUS RHYTHM LOW QRS VOLTAGE IN PRECORDIAL LEADS INCOMPLETE RIGHT BUNDLE BRANCH BLOCK LEFT ANTERIOR FASCICULAR BLOCK BASELINE ARTIFACT- I, II, III, AVR, AVL, AVF, V2-V6 ABNORMAL ECG Electronically Signed On 06-29-2020 17:58:16 ENGINEERING SPECIALIST TECHNICIAN by Jacob León D.O.
--- NOTE | 2020-06-29 16:24 | ED.GENADULT ---
HPI - General Adult General Chief complaint: Altered Mental Status Stated complaint: ALOC Time Seen by Provider: 06/29/20 15:57 Source: patient and EMS History of Present Illness HPI narrative: Patient is a 80 y/o female brought in because she has been more confused for last 4-5 days. She is also not able to ambulate. Her son states that she lives with her elderly , who is unable to help her much. Son states that patient was watching a show that's not there yesterday. He also reports that she is going to bathroom frequently. Patient is confused and does not know why she is here. Related Data Home Medications Medication Instructions Recorded Confirmed Prolia See Rx Instructions .ROUTE .COMPLEX 09/24/19 06/30/20 methylprednisolone sodium succ 700 mg IV PRN PRN 09/24/19 06/29/20 Ca carb-D3-mag [id number]-[id number]-Zn 1 tablet PO DAILY 06/29/20 06/29/20 [Caltrate + D3 Plus Minerals] mycophenolate mofetil [CellCept] 1,000 mg PO Q12H 06/29/20 06/30/20 sulfacetamide-prednisolone 2 drp OPHTHALMIC (EYE) Q4H 06/29/20 06/30/20 metformin 1,000 mg PO BID 06/30/20 06/29/20 Allergies Allergy/AdvReac Type Severity Reaction Status Date / Time cefuroxime Allergy Unknown Unknown Verified 06/30/20 01:52 codeine Allergy Unknown Skin Verified 06/30/20 01:52 irritation metronidazole Allergy Unknown Unknown Verified 06/30/20 01:52 Zexntxe-Mdx-Xgd Reductase AdvReac Unknown Verified 06/30/20 01:52 Inhibitor Review of Systems Review of Systems: ROS unobtainable: Yes unobtainable due to mental status PMFSH Past Medical History Medical History (Updated 06/30/20 @ 14:52 by Zena Orourke MD) GERD (gastroesophageal reflux disease) Hypertriglyceridemia Ischemic colitis Myositis Osteoporosis Seasonal allergies Type II diabetes mellitus Surgical History Surgical History (Updated 06/30/20 @ 09:22 by Uzma Maria PA-C) Hx of appendectomy Hx of cholecystectomy Family History Family History (Updated 06/30/20 @ 09:23 by Uzma Maria PA-C) Mother Dementia Other Unknown family medical history Social History Social History (Updated 06/30/20 @ 09:24 by Uzma Maria PA-C) Social History: Ms. Loyd lives at home with her and requires assistance with ambulation and uses a rollator. Her son, Elver, is her POA. She is a full code. Her PCP is Dr. Brizuela. She is a lifelong non-smoker. No alcohol use in many years. No history of drug use. Her father's family history is unknown. Second hand tobacco smoke exposure: No Alcohol intake: never Substance use: never Living arrangements: with family Gender identity (if verbalized by the patient): Female Spiritual care concerns: No Agree to blood products: No Exam Const: General: no acute distress and well developed Orientation/consciousness: oriented to person, oriented to place and confusion HENMT: Head: normocephalic Ears: external ears normal General nose exam: Normal external nose present Eyes: General: appearance normal, both eyes and all related structures Conjunctivae: conjunctivae normal Neck: Neck: normal visual inspection and full ROM Chest: Chest palpation & inspection: normal inspection of the chest and no tenderness Resp: Effort & Inspection: normal respiratory effort Auscultation: clear to auscultation bilaterally Cardio: Rate: regular rate Rhythm: regular rhythm GI: GI Palp: No abdominal tenderness and Yes Soft to palpation Skin: General skin exam: normal color and turgor normal Neuro: General: oriented to person, oriented to place and confusion Cognition (Neuro): normal cognition Extrem: General: normal to inspection, full ROM and no pedal edema Psych: Appearance: grossly normal Mental Status: mental status grossly normal Affect: normal affect Course Consultations Consultation #1: Discussed with Dr. Harris, who agrees to admit. Date: 06/29/20 Time: 20:45 Vital Signs Vital signs: Vital Signs Pul
[2020-06-29 18:40] VITALS: BP 108/62; PULSE 94; RESP 20; O2SAT 97
[2020-06-29 18:44] LABS: Add Urine Microscopic? YES; Appearance Urine Cloudy (Clear); Bacteria Urine Trace /hpf; Bilirubin Urine Negative (Negative); Blood Urine 3+ (Negative); Color Urine Yellow (Yellow); Glucose Urine UA 2+ mg/dL (Negative); Ketones Urine Trace mg/dL (Negative); Leukocyte Esterase Ur 3+ LEU/UL (Negative); Mucus Urine Rare /lpf; Nitrate Urine Negative (Negative); Protein Urine 1+ mg/dL (Negative); RBC Urine >75 /hpf (0-2); Specific Grav Ur 1.017 (1.001-1.035); Squamous Epithelial Cell Urine Many /hpf (Few); Urobilinogen Urine Negative mg/dL (<2.0); WBC Clumps Urine Present /HPF; WBC Urine >75 /hpf
--- NOTE | 2020-06-29 19:01 | PC.NURSE ---
LAB REJECTED PTS SAMPLE. CHARGE NURSE IS AWARE.
[2020-06-29 19:43] LABS: Basophils Absolute Auto 0.1 K/mm3 (0.0-0.1); Basophils Percent Auto 0.4 % (0.2-1.2); Eosinophils Absolute Auto 0.1 K/mm3 (0-0.3); Eosinophils Percent Auto 1.1 % (0-4.4); Hematocrit 45.7 % (37.0-47.0); Hemoglobin 15.4 g/dL (12.0-15.0); Immature Granulocyte Absolute 0.07 K/mm3 (0.00-0.031); Immature Granulocyte Percent A 0.6 % (0-0.5); Lymphocytes Percent Auto 26.5 % (18.3-44.2); Mean Corpuscular HGB Conc 33.7 g/dl (32-36); Mean Corpuscular Hemoglobin 29.4 pg (26-34); Mean Corpuscular Volume 87.4 fl (80-100); Mean Platelet Volume 9.9 fl (7.4-10.4); Monocytes Absolute Auto 1.3 K/mm3 (0.1-0.6); Monocytes Percent Auto 10.3 % (2.6-8.5); Neutrophils Absolute Auto 7.6 K/mm3 (1.3-6.7); Neutrophils Percent Auto 61.1 % (45.5-73.1); Platelet Count Result 252 k/mm3 (150-375); Red Blood Count 5.23 M/mm3 (4.2-5.4); White Blood Count 12.5 K/mm3 (4.5-10.0)
[2020-06-29 19:55] LABS: Alanine Aminotransferase 20 U/L (4-35); Alkaline Phosphatase 74 U/L (38-126); Anion Gap 11 mmol/L (8-16); Aspartate Amino Transferase 24 U/L (14-36); Bilirubin,Total 0.7 mg/dL (0.2-1.3); Blood Urea Nitrogen 11 mg/dL (7-17); Calcium 9.6 mg/dL (8.4-10.2); Carbon Dioxide 23 mmol/L (22-30); Chloride 104 mmol/L (98-107); Estimated CRCL calculation 135 ml/min; Estimated Glomerular Filt Rate > 60; Glucose 237 mg/dL (65-105); Sodium 138 mmol/L (137-145)
[2020-06-29] MEDS: POTASSIUM CHLORIDE 20 MEQ TABLET 40 MEQ PO (20:07)
[2020-06-29 20:23] VITALS: TEMP 36.6
--- NOTE | 2020-06-29 22:01 | PC.NURSE ---
Patient pulled IV out.
[2020-06-29 23:46] VITALS: BP 148/72; PULSE 112; RESP 18; O2SAT 98
[2020-06-30] VITALS: BP 142/75; PULSE 109; RESP 22; TEMP 36.4; O2SAT 100
--- NOTE | 2020-06-30 | ADMGEN ---
This patient, Meghana Loyd, was admitted to Medical Room 245-. Patient/family oriented to hospital policies and general routines including ID bracelet, bed and alarms, visiting hours, pain management, procedures, bathroom and other care routines, personal items, smoking policy, room service/diet, and visiting hours. Information on how to activate the Rapid Response Team has been discussed. Patient/Family are encouraged to report perceived risks to care and to ask questions if they do not understand what they are told or what they should do.
[2020-06-30 00:08] VITALS: BMI 23.1
[2020-06-30] MEDS: CIPROFLOXACIN 400 MG/D5W 200ML 200 ML 200 MG IVPB ×3 (00:17→22:07)
[2020-06-30 04:00] VITALS: BP 142/78; PULSE 110; RESP 18; TEMP 36.8; O2SAT 95
--- NOTE | 2020-06-30 08:17 | PM.IMHP ---
H&P: HPI History of Present Illness Date/Time: 06/30/20 08:17 Chief complaint: uti, altered mental status Narrative: Date of admission: 06/29/2020 Date of service: 06/30/2020 Meghana Loyd is a 80 year old female with a history of myositis, osteoporosis, type 2 diabetes mellitus, and dementia who presented to the emergency department on 06/29/2020 from home with complaints of urinary symptoms. History is obtained via phone by her son and Elver MULLEN. He reports that the past 1-2 days, she had been having urinary frequency and about every 20 minutes was stating she needed to go to the restroom. He noted that her urine was very dark. He also explains that her dementia has gotten progressively worse and her was having difficulty caring for her at home. She requires assistance with ambulation and the frequent trips to the bathroom were hard on him. He notes episodes of confusion and aggression, especially at night. Last night, nursing staff notes that she was calling her every few minutes on the phone and stating she had been here for 3 days with no one seeing her. On my evaluation she denied urinary symptoms but was able to tell me that she was in the hospital because they think I have a urine infection. Upon presentation to the ED, she was noted to have an abnormal UA and leukocytosis. Head CT negative for acute findings. CXR normal. She will be admitted to the hospitalist service and placed in observation. Review of Systems Review of Systems: Narrative: She denies abdominal pain, nausea, vomiting, fever, chills, dizziness, lightheadedness, headache, body ache, muscle weakness or cramping, shortness of breath, cough, chest pain, palpitations, bleeding, bruising, anxiety, or depression. All systems reviewed & are unremarkable except as noted in HPI and below PMFSH Past Medical History Medical History (Updated 06/30/20 @ 09:22 by Uzma Maria PA-C) GERD (gastroesophageal reflux disease) Hypertriglyceridemia Ischemic colitis Myositis Osteoporosis Seasonal allergies Type II diabetes mellitus Surgical History Surgical History (Updated 06/30/20 @ 09:22 by Uzma Maria PA-C) Hx of appendectomy Hx of cholecystectomy Family History Family History (Updated 06/30/20 @ 09:23 by Uzma Maria PA-C) Mother Dementia Other Unknown family medical history Social History Social History (Updated 06/30/20 @ 09:24 by Uzma Maria PA-C) Social History: Ms. Loyd lives at home with her and requires assistance with ambulation and uses a rollator. Her son, Elver, is her POA. She is a full code. Her PCP is Dr. Brizuela. She is a lifelong non-smoker. No alcohol use in many years. No history of drug use. Her father's family history is unknown. Second hand tobacco smoke exposure: No Alcohol intake: never Substance use: never Living arrangements: with family Gender identity (if verbalized by the patient): Female Spiritual care concerns: No Agree to blood products: No Meds Home Medications and Allergies Home Medications Medication Instructions Recorded Confirmed Type Prolia See Rx Instructions .ROUTE .COMPLEX 09/24/19 06/30/20 History methylprednisolone sodium succ 700 mg IV PRN PRN 09/24/19 06/29/20 History potassium chloride 10 mEq 20 meq PO BIDWM #360 tablet 01/13/20 06/29/20 Rx tablet,extended release fenofibrate 160 mg tablet 160 mg PO DAILY #90 tablet 06/16/20 06/29/20 Rx Ca carb-D3-mag rr-qdi-upox-Zn 1 tablet PO DAILY 06/29/20 06/29/20 History [Caltrate + D3 Plus Minerals] mycophenolate mofetil [CellCept] 1,000 mg PO Q12H 06/29/20 06/30/20 History sulfacetamide-prednisolone 2 drp OPHTHALMIC (EYE) Q4H 06/29/20 06/30/20 History metformin 1,000 mg PO BID 06/30/20 06/29/20 History Allergies Allergy/AdvReac Type Severity Reaction Status Date / Time cefuroxime Allergy Unknown Unknown Verified 06/30/20 01:52 codeine Allergy Unknown Skin Verified 06/30/20
[2020-06-30] MEDS: LORazepam (*CRX) 0.5 MG TABLET PO ×2 (08:41→13:35)
[2020-06-30 09:30] LABS: Hematocrit 41.4 % (37.0-47.0); Hemoglobin 13.9 g/dL (12.0-15.0); Mean Corpuscular HGB Conc 33.6 g/dl (32-36); Mean Corpuscular Volume 86.3 fl (80-100); Mean Platelet Volume 10.1 fl (7.4-10.4); Platelet Count Result 273 k/mm3 (150-375); White Blood Count 10.2 K/mm3 (4.5-10.0)
[2020-06-30 09:44] LABS: Anion Gap 15 mmol/L (8-16); Blood Urea Nitrogen 8 mg/dL (7-17); Calcium 8.4 mg/dL (8.4-10.2); Carbon Dioxide 18 mmol/L (22-30); Chloride 103 mmol/L (98-107); Estimated CRCL calculation 82 ml/min; Estimated Glomerular Filt Rate > 60; Glucose 334 mg/dL (65-105); Potassium 3.7 mmol/L (3.4-5.0); Sodium 136 mmol/L (137-145)
[2020-06-30 10:00] VITALS: BP 98/64; PULSE 95; RESP 16; TEMP 37; O2SAT 92
[2020-06-30 10:06] LABS: Lactic Acid Reflex 1.1 mmol/L (0.7-2.1)
[2020-06-30 10:10] LABS: Hemoglobin A1C 10.9 % (<5.7)
[2020-06-30] MEDS: metFORMIN HCL 500 MG TABLET 1000 MG PO ×2 (10:16→18:27)
[2020-06-30] MEDS: POTASSIUM CHLORIDE 10 MEQ TABLET.ER 20 MEQ PO ×2 (10:17→18:28)
[2020-06-30] MEDS: INSULIN ASPART (*BKC) 100 UNITS/ML SUB-Q (12:12)
[2020-06-30 13:07] LABS: Glucose Point of Care 324 (65-105)
[2020-06-30 14:00] VITALS: BP 134/75; PULSE 114; RESP 16; TEMP 36.6; O2SAT 99
[2020-06-30 18:00] VITALS: BP 99/83; PULSE 86; RESP 14; TEMP 36.3; O2SAT 98
[2020-06-30] MEDS: mycophenolate mofetiL 250 MG CAPSULE 1000 MG PO (18:27)
[2020-06-30 18:35] LABS: Glucose Point of Care 120 (65-105)
[2020-06-30] MEDS: INSULIN GLARGINE (*BKC) 100 UNITS/ML 8 UNITS SUB-Q (20:02)
[2020-06-30] MEDS: MELATONIN 5 MG TABLET PO (20:02)
[2020-07-01] VITALS (7 sets, daily range): BP systolic 108–147; BP diastolic 48–71; PULSE 76–106; RESP 16–18; TEMP 35.9–36.7; O2SAT 96–99
[2020-07-01 01:03] LABS: Glucose Point of Care 141 (65-105)
[2020-07-01] MEDS: LORazepam (*CRX) 0.5 MG TABLET PO ×3 (02:13→17:17)
[2020-07-01] MEDS: mycophenolate mofetiL 250 MG CAPSULE 1000 MG PO ×2 (05:20→17:03)
[2020-07-01 05:53] LABS: Anion Gap 5 mmol/L (8-16); Blood Urea Nitrogen 10 mg/dL (7-17); Calcium 8.8 mg/dL (8.4-10.2); Carbon Dioxide 23 mmol/L (22-30); Chloride 108 mmol/L (98-107); Estimated CRCL calculation 82 ml/min; Estimated Glomerular Filt Rate > 60; Glucose 150 mg/dL (65-105); Potassium 3.9 mmol/L (3.4-5.0); Sodium 136 mmol/L (137-145)
[2020-07-01 06:01] LABS: Hematocrit 38.3 % (37.0-47.0); Hemoglobin 12.8 g/dL (12.0-15.0); Mean Corpuscular HGB Conc 33.4 g/dl (32-36); Mean Corpuscular Hemoglobin 29.1 pg (26-34); Mean Platelet Volume 10.1 fl (7.4-10.4); Platelet Count Result 258 k/mm3 (150-375); Red Cell Distribution Width 13.1 % (11.5-14.5); White Blood Count 8.4 K/mm3 (4.5-10.0)
[2020-07-01] MEDS: POTASSIUM CHLORIDE 10 MEQ TABLET.ER 20 MEQ PO ×2 (08:48→17:04)
[2020-07-01] MEDS: metFORMIN HCL 500 MG TABLET 1000 MG PO ×2 (08:49→17:03)
[2020-07-01] MEDS: CIPROFLOXACIN 400 MG/D5W 200ML 200 ML 200 MG IVPB (09:04)
[2020-07-01 09:13] LABS: Glucose Point of Care 139 (65-105)
[2020-07-01 11:41] LABS: Glucose Point of Care 258 (65-105)
[2020-07-01] MEDS: INSULIN ASPART (*BKC) 100 UNITS/ML SUB-Q ×2 (11:43→17:04)
--- NOTE | 2020-07-01 13:12 | P.PNIM_ITS ---
Progress Note: A&P Assessment and Plan (1) UTI (urinary tract infection): Code(s): N39.0 - Urinary tract infection, site not specified Status: Acute Assessment and Plan: Urinalysis grossly abnormal with associated urinary frequency and dark urine. Urine culture grew Klebsiella pneumoniae. Mild leukocytosis has resolved. Remains afebrile. * Transition to IV Rocephin to avoid QT prolongation. Received 2 doses of Cipro, started on 06/29. Plan to complete 7 days of antibiotic therapy. Cipro and Rocephin susceptible based on sensitivities * IV fluids discontinued as patient is tolerating PO intake. (2) Sepsis: Code(s): A41.9 - Sepsis, unspecified organism Status: Acute Assessment and Plan: Resolved. Present on admission and evident based on tachycardia, tachypnea, and leukocytosis, which have all resolved. She is afebrile. Lactic 1.1. Suspected so urce of infection is urinary. * Continue IV antibiotics for treatment of UTI as above. * Monitor vital signs closely * Blood cultures pending. Preliminary cultures with NGTD. (3) Altered mental status: Code(s): R41.82 - Altered mental status, unspecified Status: Acute Assessment and Plan: Patient presented with confusion. Possibly metabolic etiology secondary to UTI, however patient also has underlying dementia and seems to be at baseline. Head CT with no acute findings. She is oriented to person, place, and events of hospitalization at time of my evaluation. * Monitor mental status closely (4) Dementia: Code(s): F03.90 - Unspecified dementia without behavioral disturbance Status: Acute Assessment and Plan: Worsening over the past 3-4 months with episodes of sundowning. Patient's son reports occasionally agressive outburts. She is established with neurologist at [facility]. Patient and family had televisit approximately 3 months ago in which neurologist noted progression of disease. Patient's reports he is unable to care for patient at home. Family had previously arranged placement at [facility] with acceptance this Monday, 07/03. * Care coordination is following. Plan to discharge to [place] on 07/03/20. * Ativan as needed for anxiety * Continue melatonin at night * Begin low dose seroquel at night (5) Myositis: Qualifiers: Myositis type: unspecified type Myositis location: unspecified site Qualified Code(s): M60.9 - Myositis, unspecified Code(s): M60.9 - Myositis, unspecified Status: Acute Assessment and Plan: Managed by Dr. Mccarty at [facility]. She receives outpatient IV Solumedrol infusions every 10 days. She is overall weak and requires assistance with ambulation. * Continue CellCept. * PT/OT evaluation appreciated. (6) Type II diabetes mellitus: Qualifiers: Diabetes mellitus longterm insulin use: unspecified intermediate frame tender insulin use status Diabetes mellitus complication status: with hyperglycemia Qualified Code(s): E11.65 - Type 2 diabetes mellitus with hyperglycemia Code(s): E11.9 - Type 2 diabetes mellitus without complications Status: Chronic Assessment and Plan: A1c is 10.9. Blood sugars have been quite elevated since arrival but seem to be improving. * Accuchecks ACHS, SSI, and hypoglycemic protocol * Continue Metformin * Increase to 10 units Lantus nightly * Closely monitor blood sugars. (7) Hypokalemia: Code(s): E87.6 - Hypokalemia Status: Acute Assessment and Plan: Po
--- NOTE | 2020-07-01 13:12 | PM.IMPN ---
Progress Note: A&P Assessment and Plan (1) UTI (urinary tract infection): Code(s): N39.0 - Urinary tract infection, site not specified Status: Acute Assessment and Plan: Urinalysis grossly abnormal with associated urinary frequency and dark urine. Urine culture grew Klebsiella pneumoniae. Mild leukocytosis has resolved. Remains afebrile. Transition to IV Rocephin to avoid QT prolongation. Received 2 doses of Cipro, started on 06/29. Plan to complete 7 days of antibiotic therapy. Cipro and Rocephin susceptible based on sensitivities IV fluids discontinued as patient is tolerating PO intake. (2) Sepsis: Code(s): A41.9 - Sepsis, unspecified organism Status: Acute Assessment and Plan: Resolved. Present on admission and evident based on tachycardia, tachypnea, and leukocytosis, which have all resolved. She is afebrile. Lactic 1.1. Suspected source of infection is urinary. Continue IV antibiotics for treatment of UTI as above. Monitor vital signs closely Blood cultures pending. Preliminary cultures with NGTD. (3) Altered mental status: Code(s): R41.82 - Altered mental status, unspecified Status: Acute Assessment and Plan: Patient presented with confusion. Possibly metabolic etiology secondary to UTI, however patient also has underlying dementia and seems to be at baseline. Head CT with no acute findings. She is oriented to person, place, and events of hospitalization at time of my evaluation. Monitor mental status closely (4) Dementia: Code(s): F03.90 - Unspecified dementia without behavioral disturbance Status: Acute Assessment and Plan: Worsening over the past 3-4 months with episodes of sundowning. Patient's son reports occasionally agressive outburts. She is established with neurologist at [facility]. Patient and family had televisit approximately 3 months ago in which neurologist noted progression of disease. Patient's reports he is unable to care for patient at home. Family had previously arranged placement at [facility] with acceptance this Monday, 07/03. Care coordination is following. Plan to discharge to [place] on 07/03/20. Ativan as needed for anxiety Continue melatonin at night Begin low dose seroquel at night (5) Myositis: Qualifiers: Myositis type: unspecified type Myositis location: unspecified site Qualified Code(s): M60.9 - Myositis, unspecified Code(s): M60.9 - Myositis, unspecified Status: Acute Assessment and Plan: Managed by Dr. Mccarty at [facility]. She receives outpatient IV Solumedrol infusions every 10 days. She is overall weak and requires assistance with ambulation. Continue CellCept. PT/OT evaluation appreciated. (6) Type II diabetes mellitus: Qualifiers: Diabetes mellitus usp insulin use: unspecified ferry terminal supervisor insulin use status Diabetes mellitus complication status: with hyperglycemia Qualified Code(s): E11.65 - Type 2 diabetes mellitus with hyperglycemia Code(s): E11.9 - Type 2 diabetes mellitus without complications Status: Chronic Assessment and Plan: A1c is 10.9. Blood sugars have been quite elevated since arrival but seem to be improving. Accuchecks ACHS, SSI, and hypoglycemic protocol Continue Metformin Increase to 10 units Lantus nightly Closely monitor blood sugars. (7) Hypokalemia: Code(s): E87.6 - Hypokalemia Status: Acute Assessment and Plan: Potassium 3.0 at presentation. Appears hypokalemia is chronic although etiology is unclear. Potassium wnl today. Continue home dose 20 mEq KCl bid. Monitor potassium closely and replace as needed. Subjective Date/time seen: 07/01/20 13:12 Interval history: Date of service: 07/01/2020 Meghana Loyd is an 80-year-old female with a history witnessed sinus and type 2 diabetes mellitus with seen
[2020-07-01 18:01] LABS: Glucose Point of Care 279 (65-105)
[2020-07-01] MEDS: QUEtiapine FUMARATE 12.5 MG TABLET PO (18:39)
[2020-07-01] MEDS: INSULIN GLARGINE (*BKC) 100 UNITS/ML 10 UNITS SUB-Q (20:05)
[2020-07-01] MEDS: MELATONIN 5 MG TABLET PO (20:06)
[2020-07-01 20:35] LABS: Glucose Point of Care 239 (65-105)
[2020-07-01 21:15] LABS: SARS-CoV-2 RNA PCR Negative
[2020-07-02 02:00] VITALS: BP 153/78; PULSE 83; RESP 18; TEMP 36.1; O2SAT 96
[2020-07-02] MEDS: mycophenolate mofetiL 250 MG CAPSULE 1000 MG PO ×2 (05:05→17:29)
--- NOTE | 2020-07-02 05:35 | PC.NURSE ---
Pt's son Dylan called and requested a CK lab be added to the lab set. Pt outpatient physician needs a CK level for the cellcept medication maintainence
[2020-07-02 05:55] LABS: Hematocrit 40.4 % (37.0-47.0); Hemoglobin 13.2 g/dL (12.0-15.0); Mean Corpuscular HGB Conc 32.7 g/dl (32-36); Mean Corpuscular Hemoglobin 28.3 pg (26-34); Mean Corpuscular Volume 86.7 fl (80-100); Mean Platelet Volume 10.2 fl (7.4-10.4); Platelet Count Result 260 k/mm3 (150-375); Red Blood Count 4.66 M/mm3 (4.2-5.4); Red Cell Distribution Width 13.1 % (11.5-14.5); White Blood Count 6.6 K/mm3 (4.5-10.0)
[2020-07-02 05:58] VITALS: BP 143/56; PULSE 75; RESP 18; TEMP 36.1; O2SAT 100
[2020-07-02 06:11] LABS: Anion Gap 6 mmol/L (8-16); Blood Urea Nitrogen 8 mg/dL (7-17); Carbon Dioxide 23 mmol/L (22-30); Chloride 108 mmol/L (98-107); Potassium 3.9 mmol/L (3.4-5.0); Sodium 137 mmol/L (137-145)
[2020-07-02 06:12] LABS: Calcium 9.5 mg/dL (8.4-10.2); Estimated CRCL calculation 82 ml/min; Estimated Glomerular Filt Rate > 60; Glucose 131 mg/dL (65-105)
[2020-07-02 06:15] LABS: Creatine Kinase 66 U/L (30-135)
[2020-07-02 07:49] LABS: Glucose Point of Care 135 (65-105)
[2020-07-02 10:00] VITALS: BP 138/65; PULSE 82; RESP 16; TEMP 36.3; O2SAT 97
[2020-07-02] MEDS: metFORMIN HCL 500 MG TABLET 1000 MG PO ×2 (10:04→17:30)
[2020-07-02] MEDS: ENOXAPARIN 40 MG/0.4 ML SYRINGE SUB-Q (10:05)
[2020-07-02] MEDS: POTASSIUM CHLORIDE 10 MEQ TABLET.ER 20 MEQ PO ×2 (10:05→17:30)
[2020-07-02 11:29] LABS: Glucose Point of Care 150 (65-105)
--- NOTE | 2020-07-02 12:11 | PM.IMPN ---
Progress Note: A&P Assessment and Plan (1) UTI (urinary tract infection): Code(s): N39.0 - Urinary tract infection, site not specified Status: Acute Assessment and Plan: Urinalysis grossly abnormal with associated urinary frequency and dark urine. Urine culture grew Klebsiella pneumoniae. Mild leukocytosis has resolved. Remains afebrile. Continue IV Rocephin. Received 2 doses of Cipro (transitioned to avoid QT prolongation with seroquel). Antibiotic therapy started on 06/29. Plan to complete 7 days. Cipro and Rocephin susceptible based on sensitivities IV fluids discontinued as patient is tolerating PO intake. (2) Sepsis: Code(s): A41.9 - Sepsis, unspecified organism Status: Acute Assessment and Plan: Resolved. Present on admission and evident based on tachycardia, tachypnea, and leukocytosis, which have all resolved. She is afebrile. Lactic 1.1. Suspected source of infection is urinary. Continue IV antibiotics for treatment of UTI as above. Monitor vital signs closely Preliminary cultures with NGTD. Final cultures will be monitored. (3) Altered mental status: Code(s): R41.82 - Altered mental status, unspecified Status: Acute Assessment and Plan: Patient presented with confusion. Possibly metabolic etiology secondary to UTI, however patient also has underlying dementia and seems to be at baseline. Head CT with no acute findings. Monitor mental status closely (4) Dementia: Code(s): F03.90 - Unspecified dementia without behavioral disturbance Status: Acute Assessment and Plan: Worsening over the past 3-4 months with episodes of sundowning. Patient's son reports occasionally agressive outburts. She is established with neurologist at [facility]. Patient and family had televisit approximately 3 months ago in which neurologist noted progression of disease. Patient's reports he is unable to care for patient at home. Family had previously arranged placement at [facility] with acceptance this Monday, 07/03. Care coordination is following. Plan to discharge to [place] on 07/03/20. Ativan as needed for anxiety Continue melatonin at night Continue low dose seroquel at night (5) Myositis: Qualifiers: Myositis type: unspecified type Myositis location: unspecified site Qualified Code(s): M60.9 - Myositis, unspecified Code(s): M60.9 - Myositis, unspecified Status: Acute Assessment and Plan: Managed by Dr. Mccarty at [facility]. She receives outpatient IV Solumedrol infusions every 10 days. She is overall weak and requires assistance with ambulation. Continue CellCept. PT/OT evaluation appreciated. It is noted that she was due for IV solumedrol infusion on 06/29. Patient's son notes that Dr. Mccarty has been planning to discontinue this medication. At this time, we will not give solumedrol. She will need to follow up with specialist to determine if this medication will be continued. (6) Type II diabetes mellitus: Qualifiers: Diabetes mellitus residential insulin use: unspecified residential insulin use status Diabetes mellitus complication status: with hyperglycemia Qualified Code(s): E11.65 - Type 2 diabetes mellitus with hyperglycemia Code(s): E11.9 - Type 2 diabetes mellitus without complications Status: Chronic Assessment and Plan: A1c is 10.9. Blood sugars have been quite elevated since arrival but improving since addition of lantus. Accuchecks ACHS, SSI, and hypoglycemic protocol Continue Metformin Continue 10 units Lantus nightly Closely monitor blood sugars. (7) Hypokalemia: Code(s): E87.6 - Hypokalemia Status: Acute Assessment and Plan: Potassium 3.0 at presentation. Appears hypokalemia is chronic although etiology is unclear. Potassium wnl today. Continue home dose 20 mEq KCl bid. Monitor potassium
[2020-07-02 14:00] VITALS: BP 155/75; PULSE 104; RESP 20; TEMP 36.1; O2SAT 97
[2020-07-02] MEDS: LORazepam (*CRX) 0.5 MG TABLET PO (14:37)
[2020-07-02 16:26] LABS: Glucose Point of Care 197 (65-105)
[2020-07-02 18:00] VITALS: BP 137/68; PULSE 102; RESP 18; TEMP 36.2; O2SAT 93
[2020-07-02] MEDS: MELATONIN 5 MG TABLET PO (21:15)
[2020-07-02] MEDS: INSULIN GLARGINE (*BKC) 100 UNITS/ML 10 UNITS SUB-Q (21:15)
[2020-07-02] MEDS: QUEtiapine FUMARATE 12.5 MG TABLET PO (21:30)
[2020-07-02 21:47] VITALS: BP 115/46; PULSE 104; RESP 18; TEMP 36.6; O2SAT 100
[2020-07-02 22:02] LABS: Glucose Point of Care 249 (65-105)
--- NOTE | 2020-07-02 22:07 | PC.NURSE ---
seroquel would not scan, verified with 2 nurses felix bustillo and myself. Given 07/02/2020 at 21:15.
[2020-07-03 02:00] VITALS: BP 120/52; PULSE 98; RESP 16; TEMP 36.3; O2SAT 99
[2020-07-03] MEDS: mycophenolate mofetiL 250 MG CAPSULE 1000 MG PO (05:18)
[2020-07-03 06:00] VITALS: BP 120/58; PULSE 81; RESP 16; TEMP 36.7; O2SAT 99
[2020-07-03 06:14] LABS: Anion Gap 9 mmol/L (8-16); Blood Urea Nitrogen 11 mg/dL (7-17); Calcium 9.3 mg/dL (8.4-10.2); Carbon Dioxide 20 mmol/L (22-30); Chloride 106 mmol/L (98-107); Estimated CRCL calculation 113 ml/min; Estimated Glomerular Filt Rate > 60; Glucose 113 mg/dL (65-105); Potassium 3.9 mmol/L (3.4-5.0); Sodium 135 mmol/L (137-145)
[2020-07-03 07:52] LABS: Glucose Point of Care 137 (65-105)
[2020-07-03 10:00] VITALS: BP 129/45; PULSE 84; RESP 17; TEMP 36.8; O2SAT 96
[2020-07-03] MEDS: POTASSIUM CHLORIDE 10 MEQ TABLET.ER 20 MEQ PO (10:18)
[2020-07-03] MEDS: metFORMIN HCL 500 MG TABLET 1000 MG PO (10:18)
[2020-07-03] MEDS: ENOXAPARIN 40 MG/0.4 ML SYRINGE SUB-Q (10:19)
[2020-07-03] MEDS: NITROFURANTOIN MONOHYD MACROCR 100 MG CAP PO (10:19)
[2020-07-03 11:49] LABS: Glucose Point of Care 160 (65-105)
--- NOTE | 2020-07-03 12:00 | PM.DS ---
DS: Admitting Diagnosis Admitting Diagnosis Admitting Diagnosis: uti, altered mental status DS: Discharge Diagnosis Discharge Diagnosis (1) UTI (urinary tract infection): Code(s): N39.0 - Urinary tract infection, site not specified Status: Acute Assessment and Plan: Urinalysis grossly abnormal with associated urinary frequency and dark urine. Urine culture grew Klebsiella pneumoniae sensitive to Cipro and Rocephin. Mild leukocytosis resolved. She remained afebrile. Received 2 days of IV Cipro which was transitioned to IV Rocephin to avoid QT prolongation in light of adding seroquel. She lost IV access and then was transitioned to PO Macrobid which she will continue to complete a 7 day course. She was rehydrated with IV fluids. (2) Sepsis: Code(s): A41.9 - Sepsis, unspecified organism Status: Acute Assessment and Plan: Resolved. Present on admission and evident based on tachycardia, tachypnea, and leukocytosis, which all resolved. Secondary to UTI. Lactic 1.1. Preliminary blood cultures with NGTD and final cultures will be monitored. (3) Altered mental status: Code(s): R41.82 - Altered mental status, unspecified Status: Acute Assessment and Plan: Patient presented with confusion. Possibly metabolic etiology secondary to UTI, however patient also has underlying dementia and seems to be at baseline. Head CT with no acute findings. (4) Dementia: Code(s): F03.90 - Unspecified dementia without behavioral disturbance Status: Acute Assessment and Plan: Worsening over the past 3-4 months with episodes of sundowning. Patient's son reports occasionally agressive outburts. She is established with neurologist at [facility]. Patient and family had televisit approximately 3 months ago in which neurologist noted progression of disease. Patient's reports he is unable to care for patient at home. Family had previously arranged placement at [facility].She was started on low dose seroquel at night. Short course of ativan provided upon discharge per request of [facility] staff until patient can be evaluated by facility physician. (5) Myositis: Qualifiers: Myositis type: unspecified type Myositis location: unspecified site Qualified Code(s): M60.9 - Myositis, unspecified Code(s): M60.9 - Myositis, unspecified Status: Acute Assessment and Plan: Managed by Dr. Mccarty at [facility]. She receives outpatient IV Solumedrol infusions every 10 days. She is overall weak and requires assistance with ambulation. Continue CellCept. She was evaluated by PT and OT and will continue with outpatient PT/OT at [facility]. It is noted that she was due for IV solumedrol infusion on 06/29. Patient's son notes that Dr. Mccarty has been planning to discontinue this medication. At this time, we will hold solumedrol until follow up with specialist to determine if this medication will be continued. (6) Type II diabetes mellitus: Qualifiers: Diabetes mellitus keno terminal operator insulin use: unspecified keno terminal operator insulin use status Diabetes mellitus complication status: with hyperglycemia Qualified Code(s): E11.65 - Type 2 diabetes mellitus with hyperglycemia Code(s): E11.9 - Type 2 diabetes mellitus without complications Status: Chronic Assessment and Plan: A1c is 10.9. Blood sugars initially quite elevated since arrival but improving with addition of Lantus. Continue with 10 units Lantus nightly. Continue metformin. (7) Hypokalemia: Code(s): E87.6 - Hypokalemia Status: Acute Assessment and Plan: Potassium 3.0 at presentation. Appears hypokalemia is chronic as she takes 20 mEq BID,although etiology is unclear. Potassium remained stable following. Continue home dose 20 mEq KCl bid. DS: Summary Hospital Course Reason for hospitalization: UTI Hospital Course: date of admission: 06/29
== END 2020-07-03 15:15 | DRG 872 ==
LOC: ANHED 16:38 → ANH2MED 22:32
PROVIDERS: Physician Assistant; Admitting Provider Family Medicine; Emergency Provider Emergency Medicine; PCP Family Medicine; Visit Provider Family Medicine
DX: A41.59 Other Gram-negative sepsis (principal); N39.0 Urinary tract infection, site not specified; B96.1 Klebsiella pneumoniae [K. pneumoniae] as the cause of diseases classified elsewhere; Z20.828 Contact with and (suspected) exposure to other viral communicable diseases; F03.90 Unspecified dementia, unspecified severity, without behavioral disturbance, psychotic disturbance, mood disturbance, and anxiety; M60.9 Myositis, unspecified; E11.65 Type 2 diabetes mellitus with hyperglycemia; E87.6 Hypokalemia; M81.0 Age-related osteoporosis without current pathological fracture; K21.9 Gastro-esophageal reflux disease without esophagitis; Z90.49 Acquired absence of other specified parts of digestive tract
CPT/HCPCS: 36415; 70450; 71045; 80048; 80053; 81001; 82550; 83036; 83605; 85025; 85027; 87040; 87077; 87086; 87088; 87186; 87635; 93005; 96365; 96376; 97110; 97161; 97165; 97530; 97535; 99285; A9270; C9803; G0378; J0696; J0744; J1650; J1815; J7517; U0003

== ENCOUNTER 2020-07-28 14:14 | Emergency (ER) | payer MEDICARE, SELFPAY ==
[2020-07-28] VITALS (23 sets, daily range): BP systolic 103–140; BP diastolic 31–106; PULSE 61–73; RESP 14–28; TEMP 36.4–36.5; O2SAT 90–99
--- NOTE | 2020-07-28 14:20 | ECG_ITS ---
Measurements Intervals [place] Rate: 77 P: -26 SC: 181 QRS: -35 QRSD: 91 T: 9 QT: 404 QTc: 458 Interpretive Statements SINUS RHYTHM LEFT AXIS DEVIATION INCOMPLETE RIGHT BUNDLE BRANCH BLOCK LOW QRS VOLTAGE IN PRECORDIAL LEADS BORDERLINE T WAVE ABNORMALITY- ANTERIOR LEADS BASELINE ARTIFACT- I, II, AVR, AVL, AVF, V3-V6 BORDERLINE ECG Electronically Signed On 07-28-2020 14:44:54 PANTS [employer]TER by Jacob León D.O.
[2020-07-28 14:25] LABS: Glucose Point of Care 65 (65-105)
--- NOTE | 2020-07-28 14:26 | PC.NURSE ---
PT GLUCOSE NOTED TO BE 65, GIVEN ORANGE JUICE AT THIS TIME TO ASSIST IN ELEVATING BS.
[2020-07-28 15:28] LABS: Glucose Point of Care 57 (65-105)
--- NOTE | 2020-07-28 15:30 | PC.NURSE ---
VERBAL ORDER FROM [facility] G[facility] FOR A HALF AMP OF DEXTROSE 50%.
[2020-07-28 15:34] LABS: Basophils Percent Auto 0.4 % (0.2-1.2); Eosinophils Absolute Auto 0.2 K/mm3 (0-0.3); Eosinophils Percent Auto 1.9 % (0-4.4); Hematocrit 44.7 % (37.0-47.0); Hemoglobin 14.5 g/dL (12.0-15.0); Immature Granulocyte Absolute 0.13 K/mm3 (0.00-0.031); Immature Granulocyte Percent A 1.4 % (0-0.5); Lymphocytes Absolute Auto 2.07 K/mm3 (0.9-3.2); Lymphocytes Percent Auto 22.1 % (18.3-44.2); Mean Corpuscular HGB Conc 32.4 g/dl (32-36); Mean Corpuscular Hemoglobin 29.1 pg (26-34); Mean Corpuscular Volume 89.8 fl (80-100); Mean Platelet Volume 9.5 fl (7.4-10.4); Monocytes Absolute Auto 0.9 K/mm3 (0.1-0.6); Monocytes Percent Auto 9.2 % (2.6-8.5); Neutrophils Absolute Auto 6.1 K/mm3 (1.3-6.7); Platelet Count Result 290 k/mm3 (150-375); Red Blood Count 4.98 M/mm3 (4.2-5.4); Red Cell Distribution Width 14.4 % (11.5-14.5); White Blood Count 9.4 K/mm3 (4.5-10.0)
[2020-07-28] MEDS: DEXTROSE 50% 25 GM/50 ML SYRINGE IV PUSH (15:36)
--- NOTE | 2020-07-28 15:36 | PC.NURSE ---
VERBAL ORDER FOR REGULAR DIET AT THIS TIME FROM [facility]ORD[facility].
[2020-07-28 15:42] LABS: Add Urine Microscopic? YES; Appearance Urine Clear (Clear); Bilirubin Urine Negative (Negative); Blood Urine Negative (Negative); Color Urine Yellow (Yellow); Glucose Urine UA Negative (Negative); Ketones Urine Negative (Negative); Leukocyte Esterase Ur 1+ LEU/UL (Negative); Mucus Urine Heavy /lpf; Nitrate Urine Negative (Negative); Protein Urine 1+ mg/dL (Negative); RBC Urine 0-2 /hpf (0-2); Squamous Epithelial Cell Urine Occasional /hpf (Few); Urobilinogen Urine Negative mg/dL (<2.0)
[2020-07-28 15:44] LABS: Specific Grav Ur 1.036 (1.001-1.035)
[2020-07-28 15:48] LABS: Alanine Aminotransferase 18 U/L (4-35); Albumin Level 3.2 g/dL (3.5-5.1); Alkaline Phosphatase 69 U/L (38-126); Anion Gap 7 mmol/L (8-16); Aspartate Amino Transferase 23 U/L (14-36); Bilirubin,Total 0.3 mg/dL (0.2-1.3); Blood Urea Nitrogen 15 mg/dL (7-17); Calcium 9.1 mg/dL (8.4-10.2); Carbon Dioxide 28 mmol/L (22-30); Chloride 105 mmol/L (98-107); Creatine Kinase 62 U/L (30-135); Estimated CRCL calculation 112 ml/min; Estimated Glomerular Filt Rate > 60; Glucose 93 mg/dL (65-105); Sodium 140 mmol/L (137-145)
--- NOTE | 2020-07-28 16:36 | PC.NURSE ---
Blood glucose was 98 at 14:36
[2020-07-28 16:37] LABS: Glucose Point of Care 98 (65-105)
--- NOTE | 2020-07-28 16:37 | PC.NURSE ---
PT RENEE 98 AT THIS TIME, PT EATING SOUP AND GRILLED CHEESE, AT BEDSIDE COAXING HER TO EAT.
--- NOTE | 2020-07-28 17:49 | ED.GENADULT ---
HPI - General Adult General Chief complaint: Altered Mental Status Stated complaint: altered Time Seen by Provider: 07/28/20 14:21 History of Present Illness HPI narrative: Patient is an 80-year-old female who presents ER with decreased oral intake. Patient's blood sugar found to be in the 50s and 60s. Patient with dementia that is required her to be hospitalized in the correction. Noninfectious reports from the facility. No falls or trauma. Related Data Home Medications Medication Instructions Recorded Confirmed Prolia See Rx Instructions .ROUTE .COMPLEX 09/24/19 06/30/20 Caltrate + D3 Plus Minerals 1 tablet PO DAILY 06/29/20 06/29/20 mycophenolate mofetil [CellCept] 1,000 mg PO Q12H 06/29/20 06/30/20 metformin 1,000 mg PO BID 06/30/20 06/29/20 acetaminophen 650 mg PO QID PRN 07/28/20 clonazepam 0.5 mg PO DAILY 07/28/20 divalproex [Depakote] 250 mg PO Q12H 07/28/20 insulin glargine [Basaglar KwikPen 10 unit SUBCUT QPM 07/28/20 U-100 Insulin] sertraline 25 mg PO DAILY 07/28/20 Allergies Allergy/AdvReac Type Severity Reaction Status Date / Time cefuroxime Allergy Unknown Unknown Verified 06/30/20 01:52 codeine Allergy Unknown Skin Verified 06/30/20 01:52 irritation metronidazole Allergy Unknown Unknown Verified 06/30/20 01:52 Ugeuucw-Akv-Snz Reductase AdvReac Unknown Verified 06/30/20 01:52 Inhibitor Review of Systems Review of Systems: ROS unobtainable: Yes unobtainable due to mental status [facility] Past Medical History Medical History (Updated 07/28/20 @ 17:53 by Eliceo Ramirez MD) GERD (gastroesophageal reflux disease) Hypertriglyceridemia Ischemic colitis Myositis Osteoporosis Seasonal allergies Type II diabetes mellitus Surgical History Surgical History (Updated 06/30/20 @ 09:22 by Uzma Maria PA-C) Hx of appendectomy Hx of cholecystectomy Family History Family History (Updated 06/30/20 @ 09:23 by Uzma Maria PA-C) Mother Dementia Other Unknown family medical history Social History Social History (Updated 06/30/20 @ 09:24 by Uzma Maria PA-C) Social History: Ms. Loyd lives at home with her and requires assistance with ambulation and uses a rollator. Her son, Elver, is her POA. She is a full code. Her PCP is Dr. Brizuela. She is a lifelong non-smoker. No alcohol use in many years. No history of drug use. Her father's family history is unknown. Second hand tobacco smoke exposure: No Alcohol intake: never Substance use: never Gender identity (if verbalized by the patient): Female Spiritual care concerns: No Agree to blood products: No Exam Narrative: Exam Narrative: GENERAL: Well-appearing, well-nourished, and in no acute distress. HEAD: Normocephalic, atraumatic. EYES: PERRL and EOMI. CHEST: Clear to auscultation. No respiratory distress. HEART: Regular rate and rhythm. Normal peripheral pulses. ABDOMEN: Soft, nontender, nondistended. EXTREMITIES: Normal range of motion. No edema. SKIN: Warm, dry, no rash. NEURO: Alert and oriented x1. Clear speech. Pleasantly demented Course Course Emergency Course: Patient's has been here, the patient is eaten some soup as well as a half grilled cheese sandwich and has been able to drink some juice. This was after she received a small amount of D50. Mild UTI. Discharge with Macrobid. Vital Signs Vital signs: Vital Signs Temperature 97.7 F 07/28/20 14:14 Pulse Rate 71 07/28/20 14:14 Respiratory Rate 28 H 07/28/20 14:14 Blood Pressure 121/33 L 07/28/20 14:14 Pulse Oximetry 98 07/28/20 14:14 Temperature 97.7 F 07/28/20 14:14 Pulse Rate 68 07/28/20 17:31 Respiratory Rate 20 07/28/20 17:31 Blood Pressure 140/106 H 07/28/20 16:46 Pulse Oximetry 99 07/28/20 16:46 Medical Decision Making Vital Signs Vital Signs: Vital Signs Temperature 97.7 F 07/28/20 14:14 Pulse Rate 71 07/28/20 14:14 Respiratory Rate 28 H 07/08
--- NOTE | 2020-07-28 18:04 | PC.NURSE ---
REPORT TO LONI MURPHY AT THIS TIME, RN FROM [facility], NO FURTHER QUESTIONS, CLEARED PT TO RETURN.
--- NOTE | 2020-07-28 18:11 | PC.NURSE ---
[facility] return trip to [facility] accepted return trip to [facility] ETA 18:45 Trip # [phone]
[2020-07-28 18:37] LABS: Glucose Point of Care 132 (65-105)
--- NOTE | 2020-07-28 19:06 | PC.NURSE ---
REPORT TO LONI CONKLIN AT THIS TIME, HE HAS ASSUMED PT CARE.
--- NOTE | 2020-07-28 19:19 | PC.NURSE ---
called [facility] for ETA update. ETA 2015
--- NOTE | 2020-07-28 19:24 | PC.NURSE ---
called [facility] to request transfer to assisted. declined
--- NOTE | 2020-07-28 19:28 | PC.NURSE ---
Called [facility] to request transport. [facility] declined. Down 2 trucks tonight.
--- NOTE | 2020-07-28 20:29 | PC.NURSE ---
Called [facility] for ETA update. ETA 10 minute
== END 2020-07-28 20:55 ==
PROVIDERS: Emergency Provider Emergency Medicine; PCP Family Medicine
DX: N39.0 Urinary tract infection, site not specified (principal); K21.9 Gastro-esophageal reflux disease without esophagitis; E11.9 Type 2 diabetes mellitus without complications; Z79.4 Long term (current) use of insulin
CPT/HCPCS: 36415; 51701; 80053; 81001; 82550; 82948; 85025; 87086; 93005; 96374; 99284

== ENCOUNTER 2020-10-18 04:41 | Inpatient (IN) | payer MEDICARE, SELFPAY ==
[2020-10-18] VITALS (16 sets, daily range): BP systolic 103–153; BP diastolic 39–71; PULSE 67–90; RESP 14–25; TEMP 36.4–37.3; O2SAT 91–99; BMI 21.4
--- NOTE | ~2020-10-18 | CT_ITS ---
EXAMINATION: CTA chest PE protocol DATE: 10/18/2020 06:54 INDICATION: Shortness of breath. TECHNIQUE: Computed tomography angiography (CTA) of the chest was performed with 100 mL Omnipaque-350 intravenous contrast timed to evaluate the pulmonary arteries. Coronal maximum intensity projection 3D-reconstructions were created by the technologist. Automated exposure control and iterative reconst ruction technique were employed. The dose-length product was 175.02 mGy-cm. COMPARISON: CT abdomen and pelvis 09/24/2019 FINDINGS: The lung volumes are small. There is mild relative elevation of right hemidiaphragm. A calc ified right lung nodule and calcified right hilar and mediastinal lymph nodes are consistent with old granulomatous disease. There are airspace and groundglass opacities in the perihilar regions and low er lungs bilaterally. No pleural effusion. There is a multinodular goiter. The heart size is normal. No pericardial effusion. There is no pulmonary embolus. There is mild thoracic spondylosis. IMPRESSION: 1. No pulmonary embolism. 2. Airspace and groundglass opacities in the perihilar regions and lower lungs bilaterally, likely at electasis. Pneumonia cannot be excluded. 3. Multinodular goiter. Reviewed, dictated and finalized at location A. IMPRESSION: 1. No pulmonary embolism. 2. Airspace and groundglass opacities in the perihilar regions and lower lungs bilaterally, likely atelectasis. Pneumonia cannot be excluded. 3. Multinodular goiter.
--- NOTE | ~2020-10-18 | XR_ITS ---
EXAMINATION: XR chest 1V portable DATE: 10/18/2020 05:41 INDICATION: Shortness of breath. TECHNIQUE: A single frontal view of the chest was obtained. COMPARISON: Chest CT 10/18/2020 FINDINGS: There are airspace opacities in the perihilar regions and lower lung zones. No pleural effu paul or pneumothorax. The heart size is normal. IMPRESSION: 1. Airspace opacities in the perihilar regions and lower lung zones, likely atelectasis. Pneumonia ca nnot be excluded. Reviewed, dictated and finalized at location A. IMPRESSION: 1. Airspace opacities in the perihilar regions and lower lung zones, likely ate lectasis. Pneumonia cannot be excluded.
--- NOTE | 2020-10-18 04:42 | ECG_ITS ---
Measurements Intervals [place] Rate: 79 P: -34 HI: 169 QRS: 14 QRSD: 78 T: 50 QT: 377 QTc: 433 Interpretive Statements SINUS RHYTHM INCOMPLETE RIGHT BUNDLE BRANCH BLOCK BASELINE ARTIFACT- II, III, AVF, V3 BORDERLINE ECG Electronically Signed On 10-18-2020 8:27:50 CDT by Jacob León D.O.
[2020-10-18 04:53] LABS: Basophils Percent Auto 0.5 % (0.2-1.2); Eosinophils Absolute Auto 0.1 K/mm3 (0-0.3); Eosinophils Percent Auto 1.4 % (0-4.4); Hematocrit 42.9 % (37.0-47.0); Immature Granulocyte Absolute 0.07 K/mm3 (0.00-0.031); Immature Granulocyte Percent A 1.7 % (0-0.5); Lymphocytes Absolute Auto 0.69 K/mm3 (0.9-3.2); Lymphocytes Percent Auto 16.5 % (18.3-44.2); Mean Corpuscular HGB Conc 32.6 g/dl (32-36); Mean Corpuscular Hemoglobin 29.6 pg (26-34); Mean Corpuscular Volume 90.7 fl (80-100); Mean Platelet Volume 9.6 fl (7.4-10.4); Monocytes Absolute Auto 0.7 K/mm3 (0.1-0.6); Monocytes Percent Auto 15.5 % (2.6-8.5); Neutrophils Absolute Auto 2.7 K/mm3 (1.3-6.7); Neutrophils Percent Auto 64.4 % (45.5-73.1); Platelet Count Result 291 k/mm3 (150-375); Red Blood Count 4.73 M/mm3 (4.2-5.4); Red Cell Distribution Width 12.8 % (11.5-14.5); White Blood Count 4.2 K/mm3 (4.5-10.0)
--- NOTE | 2020-10-18 04:53 | ED.GENADULT ---
HPI - General Adult General Chief complaint: Shortness of Breath/Dyspnea <Steve Sandoval MD - Last Filed: 10/18/20 06:54> Stated complaint: covid + SOB <Steve Sandoval MD - Last Filed: 10/18/20 06:54> Time Seen by Provider: 10/18/20 08:39 <Steve Sandoval MD - Last Filed: 10/18/20 06:54> History of Present Illness HPI narrative: Patient is a 80-year-old female who presents the emergency department with chief complaint of possible hypoxia. The patient is from a local [facility] care unit and has recently been diagnosed with COVID-19 approximately 10 days ago. Tonight they noticed that she was more short of breath and on a finger pulse oximeter noticed that her blood oxygen levels were in the 80. The patient had no complaints and EMS was called upon EMS arrival the patient was found to have a room air saturation in the 90s. The patient had no complaints at that time and actually was questioning why she was being brought to the emergency department. <Steve Sandoval MD - Last Filed: 10/18/20 06:54> Related Data Home medications: Home Medications Medication Instructions Recorded Confirmed Prolia See Rx Instructions .ROUTE .COMPLEX 09/24/19 06/30/20 Caltrate + D3 Plus Minerals 1 tablet PO DAILY 06/29/20 06/29/20 mycophenolate mofetil [CellCept] 1,000 mg PO Q12H 06/29/20 06/30/20 metformin 1,000 mg PO BID 06/30/20 06/29/20 acetaminophen 650 mg PO QID PRN 07/28/20 clonazepam 0.5 mg PO DAILY 07/28/20 divalproex [Depakote] 250 mg PO Q12H 07/28/20 insulin glargine [Basaglar KwikPen 10 unit SUBCUT QPM 07/28/20 U-100 Insulin] sertraline 25 mg PO DAILY 07/28/20 buspirone mg 10/18/20 <Steve Sandoval MD - Last Filed: 10/18/20 06:54> Allergies/adverse reactions: Allergies Allergy/AdvReac Type Severity Reaction Status Date / Time cefuroxime Allergy Unknown Unknown Verified 10/18/20 05:03 codeine Allergy Unknown Skin Verified 10/18/20 05:03 irritation metronidazole Allergy Unknown Unknown Verified 10/18/20 05:03 Ywlugpc-Oec-Lvp Reductase AdvReac Unknown Verified 10/18/20 05:03 Inhibitor <Steve Sandoval MD - Last Filed: 10/18/20 06:54> Review of Systems Review of Systems: Narrative: A 10 system review of systems was completed on the patient and is negative except for what is stated in the HPI. Nursing and ancillary documentation was reviewed. <Steve Sandoval MD - Last Filed: 10/18/20 06:54> [facility] Past Medical History Medical History: Medical History GERD (gastroesophageal reflux disease) Hypertriglyceridemia Ischemic colitis Myositis Osteoporosis Seasonal allergies Type II diabetes mellitus <Steve Sandoval MD - Last Filed: 10/18/20 06:54> Surgical History Surgical History: Surgical History Hx of appendectomy Hx of cholecystectomy <Steve Sandoval MD - Last Filed: 10/18/20 06:54> Family History Family History: Family History (Updated 06/30/20 @ 09:23 by Uzma Maria PA-C) Mother Dementia Other Unknown family medical history <Steve Sandoval MD - Last Filed: 10/18/20 06:54> Social History Social History: Social History Social History: Ms. Loyd lives at home with her and requires assistance with ambulation and uses a rollator. Her son, Elver, is her POA. She is a full code. Her PCP is Dr. Brizuela. She is a lifelong non-smoker. No alcohol use in many years. No history of drug use. Her father's family history is unknown. Second hand tobacco smoke exposure: No Alcohol intake: never Substance use: never Gender identity (if verbalized by the patient): Female Spiritual care concerns: No Agree to blood products: No <Steve Olmstead
[2020-10-18] MEDS: ALBUTEROL SULFATE (*SP) INHALER 2 PUFF INHALATION (04:58)
[2020-10-18 05:03] LABS: INR 0.9; Prothrombin Time 12.5 Seconds (11.1-14.7)
[2020-10-18 05:04] LABS: Partial Thromboplastin Time 31.4 SECONDS (22.3-36.8)
[2020-10-18 05:06] LABS: Potassium 4.3 mmol/L (3.4-5.0)
[2020-10-18 05:09] LABS: Alveolar/Arterial O2 Gradient 51.1 mmHg; Base Excess ABG -1.1 mEq/l (+/-2.0); Device ROOM AIR; Fractional Inspired Oxygen 21 %; Modified Allen's Test Pass; Oxygen Content ABG 17.3 %vol (16.0-22.0); Oxygen Saturation ABG 92.6 % (95.0-100.0); Oxyhemoglobin 90.4 % THb (90.0-100.0); PO2 ABG 60.3 mmHg (80.0-100.0); PO2 FiO2 Ratio Arterial Blood 2.87 %; Site Drawn RIGHT RADIAL; Total Hemoglobin 13.6 g/dL (12.0-18.0); pH ABG 7.455 (7.350-7.450)
[2020-10-18] MEDS: ACETAMINOPHEN 500 MG TABLET 1000 MG PO (05:17)
[2020-10-18 05:34] LABS: Alanine Aminotransferase 14 U/L (4-35); Albumin Level 3.4 g/dL (3.5-5.1); Alkaline Phosphatase 57 U/L (38-126); Anion Gap 4 mmol/L (8-16); Aspartate Amino Transferase 28 U/L (14-36); Bilirubin,Total 0.4 mg/dL (0.2-1.3); Blood Urea Nitrogen 17 mg/dL (7-17); Calcium 8.9 mg/dL (8.4-10.2); Carbon Dioxide 30 mmol/L (22-30); Chloride 103 mmol/L (98-107); Estimated Glomerular Filt Rate > 60; Glucose 99 mg/dL (65-105); Magnesium 1.9 mg/dL (1.6-2.3); NT Pro B Type Natriuretic Pept 557 PG/ML (5-100); Sodium 137 mmol/L (137-145); Troponin I 0.072 ng/mL (0.000-0.034)
[2020-10-18] MEDS: SODIUM CHLORIDE 0.9% IV 1,000 ML 75 ML IV CONT ×2 (10:20→21:22)
--- NOTE | 2020-10-18 11:22 | PM.IMHP ---
H&P: HPI History of Present Illness Date/Time: 10/18/20 11:22 Chief Complaint: Low pulse ox in the intermediate. Narrative: 80 years old female a recent COVID pneumonia and diagnosed 10 days ago was a resident of local [facility] Care Unit was transferred to [facility] Room complaints the patient pulse ox was low at night. Pulse ox was in 80s. When the ambulance picked up the patient pulse ox went up to 90 and 92. In the emergency room patient pulse ox remained stable. Patient was transferred to floor for further management because incidental finding of high troponin in the ER. At present time patient denies any shortness of breath or chest pain. No fever no chills. No abdominal pain no nausea vomiting or diarrhea. Patient is completely asymptomatic at present time. Review of Systems Review of Systems: All systems reviewed & are unremarkable except as noted in HPI and below (the history and physical exam) PMFSH Past Medical History Medical History GERD (gastroesophageal reflux disease) Hypertriglyceridemia Ischemic colitis Myositis Osteoporosis Seasonal allergies Type II diabetes mellitus Surgical History Surgical History Hx of appendectomy Hx of cholecystectomy Family History Family History Mother Dementia Other Unknown family medical history Social History Social History Social History: Ms. Loyd lives at home with her and requires assistance with ambulation and uses a rollator. Her son, Elver, is her POA. She is a full code. Her PCP is Dr. Brizuela. She is a lifelong non-smoker. No alcohol use in many years. No history of drug use. Her father's family history is unknown. Smoking status: Unknown if ever smoked Second hand tobacco smoke exposure: No Alcohol intake: unknown Substance use: unknown Gender identity (if verbalized by the patient): Female Spiritual care concerns: No Agree to blood products: No Meds Home Medications and Allergies Home Medications Medication Instructions Recorded Confirmed Type Prolia See Rx Instructions .ROUTE .COMPLEX 09/24/19 06/30/20 History potassium chloride 10 mEq 20 meq PO BIDWM #360 tablet 01/13/20 06/29/20 Rx tablet,extended release fenofibrate 160 mg tablet 160 mg PO DAILY #90 tablet 06/16/20 06/29/20 Rx Caltrate + D3 Plus Minerals 1 tablet PO DAILY 06/29/20 06/29/20 History mycophenolate mofetil [CellCept] 1,000 mg PO Q12H 06/29/20 06/30/20 History metformin 1,000 mg PO BID 06/30/20 06/29/20 History lancets [OneTouch Delica Plus #1 pkg 07/03/20 Rx Lancet] lorazepam [Ativan] 0.5 mg PO BID PRN #10 tablet 07/03/20 Rx melatonin 5 mg PO HS #30 tablet 07/03/20 Rx quetiapine [Seroquel] 25 mg PO HS #30 tablet 07/03/20 Rx acetaminophen 650 mg PO QID PRN 07/28/20 History clonazepam 0.5 mg PO DAILY 07/28/20 History divalproex [Depakote] 250 mg PO Q12H 07/28/20 History insulin glargine [Basaglar KwikPen 10 unit SUBCUT QPM 07/28/20 History U-100 Insulin] nitrofurantoin monohyd/m-cryst 100 mg PO Q12H 5 Days #10 cap 07/28/20 Rx [Macrobid] sertraline 25 mg PO DAILY 07/28/20 History buspirone mg 10/18/20 History Allergies Allergy/AdvReac Type Severity Reaction Status Date / Time cefuroxime Allergy Unknown Unknown Verified 10/18/20 05:03 codeine Allergy Unknown Skin Verified 10/18/20 05:03 irritation metronidazole Allergy Unknown Unknown Verified 10/18/20 05:03 Eyoinfm-Vpr-Jab Reductase AdvReac Unknown Verified 10/18/20 05:03 Inhibitor Vital Signs Vital Signs - 24 hr 10/18/20 04:36 10/18/20 05:37 10/18/20 05:43 Temperature 36.4 C Pulse Rate 78 81 Respiratory Rate 25 H 18 Blood Pressure 153/47 H 107/71 Pulse Oximetry 97 97 95 10/18/20 06:21 10/18/20 06:52 10/18/20 10:10 Temperature
[2020-10-18 12:30] LABS: Glucose Point of Care 82 (65-105)
[2020-10-18] MEDS: ASPIRIN 81 MG CHEWABLE TABLET PO (13:20)
--- NOTE | 2020-10-18 14:48 | PM.CNCAR ---
Assessment and Plan Assessment and plan (1) Elevated troponin: Code(s): R77.8 - Other specified abnormalities of plasma proteins Status: Acute Assessment and Plan: Flat, indeterminate troponin elevation without associated symptoms suggestive myocardial ischemia or new acute ischemic changes by EKG. Most likely type 2 infarct secondary to hypoxia, COVID-19 infection but not acute coronary syndrome. Trend troponin. Aspirin 81 mg daily. 2D echocardiogram in a.m. to assess LV function, wall motion abnormalities, valve pathology pulmonary pressures. Telemetry. DVT prophylaxis Conservative medical management anticipated. Further recommendation to follow as appropriate. (2) Hypoxia: Code(s): R09.02 - Hypoxemia Status: Acute Assessment and Plan: Per primary Service. Patient stable on room air in COVID-19 isolation. (3) COVID-19: Code(s): U07.1 - COVID-19 Status: Acute Assessment and Plan: Management per primary service. (4) Dementia: Code(s): F03.90 - Unspecified dementia without behavioral disturbance Status: Acute Assessment and Plan: Per primary service. Check UA, defer to primary service. (5) Type II diabetes mellitus: Qualifiers: Diabetes mellitus shelter insulin use: unspecified shelter insulin use status Diabetes mellitus complication status: with hyperglycemia Qualified Code(s): E11.65 - Type 2 diabetes mellitus with hyperglycemia Code(s): E11.9 - Type 2 diabetes mellitus without complications Status: Chronic Assessment and Plan: Per primary service. History of Present Illness History of Present Illness Consult date/time: Date of service: 10/18/20 14:48 Cardiology consultation at the request of Dr. Edwards of the [facility] for my opinion regarding elevated troponin in the setting of hypoxia and COVID-19. Requesting physician: Walter Edwards MD Consult reason: Other (elevated troponin) Reason For Visit: NSTEMI, COVID Narrative: Patient is an 80-year-old female with a past medical history significant for diabetes mellitus, recent COVID pneumonia diagnosis 10 days ago, dementia who presented to the emergency department from a local memory care unit with reported shortness of breath and hypoxia. His noted her oxygen saturations were in the 90s on room air but other reports indicate oxygen saturations at one point in the 80s. Troponins were evaluated and found to mildly elevated 0.072, 0.060 with a BNP of 557. Chest x-ray and CT angiogram revealed airspace opacities and ground-glass. No known history of CAD. We have been consulted due to elevated troponin. Patient is currently in isolation for COVID-19. Twelve lead EKG did not reveal new ischemic changes and is essentially unchanged from prior tracings. Review of Systems Review of Systems: All systems reviewed & are unremarkable except as noted in HPI and below Constitutional: Constitutional: Reports as per HPI, Reports no additional constitutional complaints, Reports fatigue and Reports weakness Eyes: Eyes: Reports as per HPI and Reports no additional eye complaints ENT: Reports system reviewed and no additional complaints, except as documented and Reports as per HPI Cardiovascular: Cardiovascular: Reports as per HPI, Reports no additional cardiovascular complaints, Denies chest pain and Denies palpitations Respiratory: Respiratory: Reports as per HPI, Reports no additional respiratory complaints, Denies dyspnea and Denies dyspnea on exertion Gastrointestinal: Gastrointestinal: Reports as per HPI, Reports no additional gastrointestinal complaints, Denies abdominal pain, Denies melena, Denies hematochezia, Denies nausea and Denies vomiting Genitourinary: Genitourinary: Reports as per HPI Musculoskeletal: Musculoskeletal: Reports no additional musculoskeletal complaints and Reports as per HPI Integumentary/Breasts: Skin/Breast: Rep
[2020-10-18] MEDS: FENOFIBRATE 160 MG TABLET PO (15:39)
[2020-10-18] MEDS: SERTRALINE HCL 25 MG TABLET PO (15:39)
[2020-10-18 17:02] LABS: Glucose Point of Care 82 (65-105)
[2020-10-18] MEDS: POTASSIUM CHLORIDE 10 MEQ TABLET.ER 20 MEQ PO (17:10)
[2020-10-18] MEDS: CIPROFLOXACIN 500 MG TAB PO (17:11)
[2020-10-18] MEDS: metFORMIN HCL 500 MG TABLET 1000 MG PO (17:12)
[2020-10-18] MEDS: busPIRone HCL 5 MG TABLET 15 MG PO (17:12)
[2020-10-18 20:58] LABS: Glucose Point of Care 73 (65-105)
[2020-10-18] MEDS: HEPARIN SODIUM 5,000 UNITS/ML VIAL 5000 UNITS SUB-Q (21:21)
[2020-10-18 22:26] LABS: Glucose Point of Care 90 (65-105)
[2020-10-18 23:31] LABS: Glucose Point of Care 96 (65-105)
--- NOTE | 2020-10-18 23:41 | PC.NURSE ---
When I went to give night meds pt put meds in her mouth like she knew what to do but then wouldn't take a drink just kept chewing and trying to swallow them dry. She got choked on them and I wiped what was still in her mouth out. Once I got her to take a drink she swallowed fine but it was hard to get her to take a sip.
[2020-10-19] VITALS (16 sets, daily range): BP systolic 110–133; BP diastolic 37–62; PULSE 69–86; RESP 16–24; TEMP 36.2–37; O2SAT 93–97; BMI 21.4
--- NOTE | 2020-10-19 | ECHOL_ITS ---
Patient Info Name: Meghana Loyd Age: 80 years : 1940 Gender: Female Ht: 60 in Wt: 110 lbs BSA: 1.46 m2 HR: 72 bpm BP: 133 / 39 mmHg Heart Rhythm: Sinus Rhythm Technical Quality: Good Exam Date: 10/19/2020 4:47 PM Exam Location: [facility] Pulmonary Exam Room: 232 Patient Status: Inpatient Admit Date: 10/18/2020 Staff Ordering Physician: Alexandria Harp MD Business Instructor: Ashlee Suarez RDCS Attending Provider: Walter Edwards MD Exam Type: CA echo limited Study Info Indications - ELEVATED TROPONINS COVID Limited two-dimensional transthoracic echocardiogram is performed. Summary 1. Left ventricular systolic function is normal, estimated at >70%. 2. There is mild asymmetric septal increased left ventricular wall thickness. 3. The left ventricular diastolic function is normal. 4. There is no aortic valve stenosis. 5. There is trace mitral valve regurgitation. 6. Mild pulmonary hypertension, estimated pulmonary arterial systolic pressure is 35 mmHg. 7. There is mild tricuspid valve regurgitation. Left Ventricle Left ventricular chamber dimension is normal. Left ventricular systolic function is normal, estimated at >70%. There is mild asymmetric septal increased left ventricular wall thickness. The left ventricular diastolic function is normal. Right Ventricle Right ventricular chamber dimension is normal. Right ventricular systolic function is normal. Left Atria Left atrial chamber dimension is normal. Right Atria Right atrial chamber dimension is normal. Aortic Valve The aortic valve is not well visualized. There is no aortic valve stenosis. There is no aortic valve regurgitation. Pulmonic Valve The pulmonic valve is normal. There is trace pulmonic regurgitation. Mitral Valve The mitral valve has normal leaflets. There is trace mitral valve regurgitation. The mitral valve annulus is mildly calcified. Tricuspid Valve The tricuspid valve leaflets are normal. There is mild tricuspid valve regurgitation. Mild pulmonary hypertension, estimated pulmonary arterial systolic pressure is 35 mmHg. Pericardium/Pleural The pericardium appears normal. There is trivial pericardial effusion. Inferior Vena Cava Normal inferior vena cava with >50% collapse upon inspiration consistent with normal right atrial pressure, 5 mmHg. Aorta The aortic root size at the sinus of Valsalva is normal. Mitral Valve Name Value Normal MV Doppler MV Decel [place] 421 cm/s2 MV PHT 53 ms MV Area (PHT) 4.2 cm2 4.0-5.0 MV Diastolic Function MV E Peak Velocity 77 cm/s MV A Peak Velocity 72 cm/s MV E/A 1.1 MV Decel Time 182 ms Tricuspid Valve Name Value Normal TV Regurgitation Doppler
[2020-10-19 05:55] LABS: Glucose Point of Care 97 (65-105)
[2020-10-19 06:10] LABS: Basophils Percent Auto 0.2 % (0.2-1.2); Eosinophils Percent Auto 0.2 % (0-4.4); Hematocrit 37.7 % (37.0-47.0); Hemoglobin 12.4 g/dL (12.0-15.0); Immature Granulocyte Absolute 0.07 K/mm3 (0.00-0.031); Immature Granulocyte Percent A 1.4 % (0-0.5); Lymphocytes Absolute Auto 0.91 K/mm3 (0.9-3.2); Lymphocytes Percent Auto 18.6 % (18.3-44.2); Mean Corpuscular HGB Conc 32.9 g/dl (32-36); Mean Corpuscular Hemoglobin 29.8 pg (26-34); Mean Corpuscular Volume 90.6 fl (80-100); Mean Platelet Volume 9.8 fl (7.4-10.4); Monocytes Absolute Auto 0.7 K/mm3 (0.1-0.6); Monocytes Percent Auto 14.1 % (2.6-8.5); Neutrophils Absolute Auto 3.2 K/mm3 (1.3-6.7); Neutrophils Percent Auto 65.5 % (45.5-73.1); Platelet Count Result 274 k/mm3 (150-375); Red Blood Count 4.16 M/mm3 (4.2-5.4); Red Cell Distribution Width 12.8 % (11.5-14.5); White Blood Count 4.9 K/mm3 (4.5-10.0)
[2020-10-19 06:23] LABS: Anion Gap 7 mmol/L (8-16); Blood Urea Nitrogen 11 mg/dL (7-17); Calcium 8.2 mg/dL (8.4-10.2); Carbon Dioxide 24 mmol/L (22-30); Chloride 104 mmol/L (98-107); Estimated CRCL calculation 113 ml/min; Estimated Glomerular Filt Rate > 60; Glucose 100 mg/dL (65-105); Potassium 4.1 mmol/L (3.4-5.0); Sodium 135 mmol/L (137-145)
--- NOTE | 2020-10-19 06:38 | ADMGEN ---
This patient, Meghana Loyd, was admitted to IMU Room 232-01. Patient/family oriented to hospital policies and general routines including ID bracelet, bed and alarms, visiting hours, pain management, procedures, bathroom and other care routines, personal items, smoking policy, room service/diet, and visiting hours. Information on how to activate the Rapid Response Team has been discussed. Patient/Family are encouraged to report perceived risks to care and to ask questions if they do not understand what they are told or what they should do. Report Rubio IVEY Arrival [id number]
[2020-10-19 08:11] LABS: Glucose Point of Care 103 (65-105)
[2020-10-19] MEDS: clonazePAM (*CRX) 0.5 MG TABLET PO (09:55)
[2020-10-19] MEDS: ASPIRIN 81 MG CHEWABLE TABLET PO (09:55)
[2020-10-19] MEDS: SERTRALINE HCL 25 MG TABLET PO (09:55)
[2020-10-19] MEDS: busPIRone HCL 5 MG TABLET 15 MG PO ×2 (09:56→17:39)
[2020-10-19] MEDS: DIVALPROEX SODIUM DR 250 MG TABEC PO (09:56)
[2020-10-19] MEDS: HEPARIN SODIUM 5,000 UNITS/ML VIAL 5000 UNITS SUB-Q ×2 (09:56→20:50)
[2020-10-19] MEDS: mycophenolate mofetiL 250 MG CAPSULE 1000 MG PO (09:56)
--- NOTE | 2020-10-19 11:48 | PCNSR ---
On 10/19/20, the student, Karie Magana, provided care and completed [facility] documentation on this patient. I have reviewed the student's documentation and agree with the findings.
[2020-10-19] MEDS: POTASSIUM CHLORIDE 10 MEQ TABLET.ER 20 MEQ PO (12:23)
[2020-10-19] MEDS: FENOFIBRATE 160 MG TABLET PO (12:24)
[2020-10-19 12:43] LABS: Glucose Point of Care 108 (65-105)
[2020-10-19 16:48] LABS: Glucose Point of Care 87 (65-105)
--- NOTE | 2020-10-19 17:16 | PM.IMPN ---
Progress Note: A&P Assessment and Plan (1) Elevated troponin: Code(s): R77.8 - Other specified abnormalities of plasma proteins Status: Acute Assessment and Plan: Patient is asymptomatic at present time, denies any chest pain. Will trend down troponin and consult Cardiology. 10/19/20 17:16 patient 80-year-old female a resident of [facility] patient had developed shortness of breath and was desaturating in 80s on room air patient was sent to emergency department for further evaluation however on arrival patient was saturating in 90s on room air, patient was diagnosed with COVID and currently in isolation, patient has history diabetes and dementia, patient is isolated, patient is somnolent unable to provide detailed review of symptom, patient tropes are elevated was seen by Cardiology does not suspect acute coronary syndrome rather type 2 medical infarction secondary to shortness of breath and COVID pneumonia, bond writer did not recommend any more further workup, patient had CT of the chest did not show any pulmonary emboli showed atelectasis pneumonia most likely COVID, and no further workup was recommended. Patient clinically stable has no fever while in the hospital and on room air will continue to monitor and may discharge patient tomorrow (2) History of COVID-19: Code(s): Z86.16 - Personal history of COVID-19 Status: Acute Assessment and Plan: Asymptomatic at present time will continue to monitor. (3) Dementia: Code(s): F03.90 - Unspecified dementia without behavioral disturbance Status: Acute Assessment and Plan: Stable on current medication be (4) Type II diabetes mellitus: Qualifiers: Diabetes mellitus complication status: with hyperglycemia Diabetes mellitus mcc insulin use: unspecified mcc insulin use status Qualified Code(s): E11.65 - Type 2 diabetes mellitus with hyperglycemia Code(s): E11.9 - Type 2 diabetes mellitus without complications Status: Chronic Assessment and Plan: Stable on medication. Additional Plan Patient is admitted for elevated troponin. Will consult Cardiology in [facility]. Will continue home medications. Reconsideration of the medication were done. Patient is full code at present Patient will stay for more than 2 days in the hospital. Patient id nonsmoker Subjective Date/time seen: 10/19/20 17:16 patient 80-year-old female a resident of [facility] patient had developed shortness of breath and was desaturating in 80s on room air patient was sent to emergency department for further evaluation however on arrival patient was saturating in 90s on room air, patient was diagnosed with COVID and currently in isolation, patient has history diabetes and dementia, patient is isolated, patient is somnolent unable to provide detailed review of symptom, patient tropes are elevated was seen by Cardiology does not suspect acute coronary syndrome rather type 2 medical infarction secondary to shortness of breath and COVID pneumonia, bond writer did not recommend any more further workup, patient had CT of the chest did not show any pulmonary emboli showed atelectasis pneumonia most likely COVID, and no further workup was recommended. Patient clinically stable has no fever while in the hospital and on room air will continue to monitor and may discharge patient tomorrow Review of Systems Review of Systems: ROS unobtainable: Yes unobtainable due to medical condition Exam Narrative: Exam Narrative: Elderly frail Patient is comfortable, NAD HEENT: eyes are clear and none icteric LUNGS: Normal respiratory effort ABD: Nondistended Lower extremities: no edema SKIN: nonjaundiced Neuro: Somnolent. Objective Data Vital Signs Vital Signs: Vital Signs - 24 hr 10/18/20 18:00 10/18/20 20:00 10/18/20 22:00 Temperature 99 F Pulse Rate 80 90 77 Respiratory Rate 14 Blood P
[2020-10-19] MEDS: SODIUM CHLORIDE 0.9% IV 1,000 ML 75 ML IV CONT (17:39)
[2020-10-19] MEDS: CIPROFLOXACIN 500 MG TAB PO (17:39)
[2020-10-19 20:59] LABS: Glucose Point of Care 87 (65-105)
[2020-10-19 23:43] LABS: Glucose Point of Care 102 (65-105)
[2020-10-20] VITALS (17 sets, daily range): BP systolic 126–162; BP diastolic 49–75; PULSE 57–85; RESP 14–24; TEMP 36.1–39.1; O2SAT 92–97
--- NOTE | 2020-10-20 06:42 | P.CDI_ITS ---
CDI Query Clarification Request -Per ED documentation, patient tested positive for Covid 19 approximately 10 days prior to arrival and sats at [place] were 80. Chief complaint was shortness of breath and pO2 was 60.3. -Covid 19 documented by EDP -History of Covid 19 documented in progress notes Please clarify status of Covid 19: * Current/acute manifestation of Covid * Sequelae/ residual effect of Covid * History of Covid * Unable to determine <Emerald Mills RN - Last Filed: 10/20/20 08:08> Clarified Diagnosis (1) COVID-19: Code(s): U07.1 - COVID-19 <Emerald Mills RN - Last Filed: 10/20/20 08:08> Status: Acute <Emerald Mills RN - Last Filed: 10/20/20 08:08> Assessment and Plan: Most likely patient's symptoms are stemming from COVID-19 pneumonia <Alexandria Harp MD - Last Filed: 10/20/20 12:52>
[2020-10-20] MEDS: SODIUM CHLORIDE 0.9% IV 1,000 ML 75 ML IV CONT (10:31)
[2020-10-20] MEDS: HEPARIN SODIUM 5,000 UNITS/ML VIAL 5000 UNITS SUB-Q (10:32)
[2020-10-20 12:37] LABS: Glucose Point of Care 111 (65-105)
--- NOTE | 2020-10-20 12:37 | PM.DS ---
DS: Summary Time Spent with Patient Time attestation: Total time spent providing and/or coordinating discharge services: DS: Data Data Completed and Pending Labs on day of discharge: Labs from last 24 hours 10/20/20 10/19/20 10/19/20 12:31 23:32 20:52 POC Capillary Glucose 111 H 102 87 10/19/20 10/19/20 15:57 12:30 POC Capillary Glucose 87 108 Discharge Plan Discharge Attending physician on discharge: Alexandria Harp Consulting providers: Stefano Sweeney Discharging Clinician: Alexandria Harp Activity: as tolerated Diet: heart healthy Discharge Instructions: patient to wear her mask and follow social distancing, patient to follow up with her primary care as soon as possible. Follow-up/Referrals: Jude,Koki Wong, FINGER COBBLER-BC [Primary Care Provider] - Discharge Medications: New aspirin [Children's Aspirin] 81 mg Tablet,Chewable 81 mg PO DAILY@0800 Qty: 30 RF: 0 Continued mycophenolate mofetil [CellCept] 500 mg Tablet 1,000 mg PO Q12H RF: 0 Caltrate + D3 Plus Minerals 300 mg-800 unit -25 mg-0.5 mg Tablet 1 tablet PO DAILY RF: 0 metformin 500 mg tablet 1,000 mg PO BID RF: 0 melatonin 5 mg Tablet 5 mg PO HS Qty: 30 RF: 0 (DME) lancets [OneTouch Delica Plus Lancet] 30 gauge Misc Qty: 1 RF: 0 quetiapine [Seroquel] 25 mg tablet 25 mg PO HS Qty: 30 RF: 0 divalproex [Depakote] 250 mg Tablet,Delayed Release (Dr/Ec) 250 mg PO Q12H RF: 0 clonazepam 0.5 mg Tablet 0.5 mg PO Q12H RF: 0 acetaminophen 650 mg Tablet 650 mg PO TID PRN (Reason: Pain) RF: 0 sertraline 25 mg Tablet 25 mg PO DAILY RF: 0 buspirone 15 mg tablet 15 mg PO BID RF: 0 ciprofloxacin HCl 500 mg tablet 500 mg PO Q12H RF: 0 Colace 100 mg PO BID PRN (Reason: Constipation) RF: 0 potassium chloride 10 mEq tablet extended release 20 meq PO BID RF: 0 lorazepam [Ativan] 0.5 mg tablet 0.5 mg PO BID PRN (Reason: agitation) RF: 0 fenofibrate 160 mg tablet 160 mg PO DAILY Qty: 90 RF: 2 Date of admission: 10/18/20 08:44 Primary Care Provider: Jude,Koki Wong Admitting Provider: Walter Edwards Attending physician on admission: Walter Edwards Condition: Stable Quality VTE Prophylaxis VTE prophylaxis: pharmacologic ordered
--- NOTE | 2020-10-20 16:28 | PM.IMPN ---
Progress Note: A&P Assessment and Plan (1) Elevated troponin: Code(s): R77.8 - Other specified abnormalities of plasma proteins Status: Acute Assessment and Plan: 10/20/20 13:00 10/19 patient 80-year-old female a resident of [facility] patient had developed shortness of breath and was desaturating in 80s on room air patient was sent to emergency department for further evaluation however on arrival patient was saturating in 90s on room air, patient was diagnosed with COVID and currently in isolation, patient has history diabetes and dementia, patient is isolated, patient is somnolent unable to provide detailed review of symptom, patient tropes are elevated was seen by Cardiology does not suspect acute coronary syndrome rather type 2 medical infarction secondary to shortness of breath and COVID pneumonia, pipe coverer helper did not recommend any more further workup, patient had CT of the chest did not show any pulmonary emboli showed atelectasis pneumonia most likely COVID, and no further workup was recommended. Patient clinically stable has no fever while in the hospital and on room air will continue to monitor and may discharge patient tomorrow 10/20 plan was to discharge patient today is patient is clinically stable but no fever on on room air however at the time of the transportation recheck of the temperature showed patient had a fever of 101 per nursing staff, will cancel discharge will do cbc and UA further recommendation to follow (2) History of COVID-19: Code(s): Z86.16 - Personal history of COVID-19 Status: Acute Assessment and Plan: In-hospital patient remains stable no fever and on room air was clinically stable plan was to discharge the patient back to nursing however patient developed the fever will monitor (3) Dementia: Code(s): F03.90 - Unspecified dementia without behavioral disturbance Status: Acute Assessment and Plan: Clinically stable (4) Type II diabetes mellitus: Qualifiers: Diabetes mellitus shelter insulin use: unspecified terminal carman insulin use status Diabetes mellitus complication status: with hyperglycemia Qualified Code(s): E11.65 - Type 2 diabetes mellitus with hyperglycemia Code(s): E11.9 - Type 2 diabetes mellitus without complications Status: Chronic Assessment and Plan: Patient is a poor appetite will continue to monitor with sliding scale Subjective Date/time seen: 10/20/20 13:00 10/19 patient 80-year-old female a resident of [facility] patient had developed shortness of breath and was desaturating in 80s on room air patient was sent to emergency department for further evaluation however on arrival patient was saturating in 90s on room air, patient was diagnosed with COVID and currently in isolation, patient has history diabetes and dementia, patient is isolated, patient is somnolent unable to provide detailed review of symptom, patient tropes are elevated was seen by Cardiology does not suspect acute coronary syndrome rather type 2 medical infarction secondary to shortness of breath and COVID pneumonia, pipe coverer helper did not recommend any more further workup, patient had CT of the chest did not show any pulmonary emboli showed atelectasis pneumonia most likely COVID, and no further workup was recommended. Patient clinically stable has no fever while in the hospital and on room air will continue to monitor and may discharge patient tomorrow 10/20 plan was to discharge patient today is patient is clinically stable but no fever on on room air however at the time of the transportation recheck of the temperature showed patient had a fever of 101 per nursing staff, will cancel discharge will do cbc and UA further recommendation to follow Review of Systems Review of Systems: ROS unobtainable: Yes unobtainable due to medical condition Exam Narrative: Exam Narrative: Elderly frail Patient is comfortable,
[2020-10-20 16:50] LABS: Hematocrit 35.6 % (37.0-47.0); Hemoglobin 11.8 g/dL (12.0-15.0); Mean Corpuscular HGB Conc 33.1 g/dl (32-36); Mean Corpuscular Hemoglobin 29.3 pg (26-34); Mean Corpuscular Volume 88.3 fl (80-100); Mean Platelet Volume 9.2 fl (7.4-10.4); Platelet Count Result 286 k/mm3 (150-375); Red Blood Count 4.03 M/mm3 (4.2-5.4); Red Cell Distribution Width 12.5 % (11.5-14.5); White Blood Count 4.3 K/mm3 (4.5-10.0)
[2020-10-20 18:24] LABS: Glucose Point of Care 112 (65-105)
[2020-10-20 18:53] LABS: Add Urine Microscopic? YES; Appearance Urine Cloudy (Clear); Bacteria Urine Trace /hpf; Bilirubin Urine Negative (Negative); Blood Urine 1+ (Negative); Color Urine Yellow (Yellow); Glucose Urine UA Negative (Negative); Ketones Urine 1+ mg/dL (Negative); Leukocyte Esterase Ur Negative LEU/UL (Negative); Mucus Urine Heavy /lpf; Nitrate Urine Negative (Negative); Protein Urine Negative (Negative); Specific Grav Ur 1.016 (1.001-1.035); Squamous Epithelial Cell Urine Many /hpf (Few); WBC Urine 0-3 /hpf
[2020-10-20] MEDS: QUEtiapine FUMARATE 25 MG TABLET PO (20:47)
[2020-10-20] MEDS: mycophenolate mofetiL 250 MG CAPSULE 1000 MG PO (20:47)
[2020-10-20] MEDS: MELATONIN 5 MG TABLET PO (20:48)
[2020-10-20] MEDS: DIVALPROEX SODIUM DR 250 MG TABEC PO (20:48)
[2020-10-20] MEDS: clonazePAM (*CRX) 0.5 MG TABLET PO (20:48)
[2020-10-21] VITALS (15 sets, daily range): BP systolic 92–137; BP diastolic 35–78; PULSE 56–91; RESP 14–20; TEMP 35.1–37.7; O2SAT 92–101
[2020-10-21 00:02] LABS: Glucose Point of Care 123 (65-105)
[2020-10-21 05:37] LABS: Glucose Point of Care 80 (65-105)
[2020-10-21] MEDS: SODIUM CHLORIDE 0.9% IV 1,000 ML 75 ML IV CONT (06:25)
[2020-10-21 07:54] LABS: Glucose Point of Care 94 (65-105)
[2020-10-21 08:32] LABS: Hematocrit 34.9 % (37.0-47.0); Hemoglobin 11.4 g/dL (12.0-15.0); Mean Corpuscular HGB Conc 32.7 g/dl (32-36); Mean Corpuscular Hemoglobin 29.3 pg (26-34); Mean Corpuscular Volume 89.7 fl (80-100); Mean Platelet Volume 9.4 fl (7.4-10.4); Platelet Count Result 260 k/mm3 (150-375); Red Blood Count 3.89 M/mm3 (4.2-5.4); Red Cell Distribution Width 12.5 % (11.5-14.5); White Blood Count 3.5 K/mm3 (4.5-10.0)
[2020-10-21 08:46] LABS: Alanine Aminotransferase 12 U/L (4-35); Albumin Level 2.5 g/dL (3.5-5.1); Alkaline Phosphatase 45 U/L (38-126); Aspartate Amino Transferase 28 U/L (14-36); Bilirubin,Total 0.4 mg/dL (0.2-1.3); Lipase 77 U/L (23-300)
[2020-10-21 08:48] LABS: CRP 7.2 mg/dL (<1.0)
[2020-10-21 08:55] LABS: Anion Gap 6 mmol/L (8-16); Blood Urea Nitrogen 7 mg/dL (7-17); Calcium 7.4 mg/dL (8.4-10.2); Carbon Dioxide 25 mmol/L (22-30); Chloride 106 mmol/L (98-107); Estimated CRCL calculation 113 ml/min; Estimated Glomerular Filt Rate > 60; Glucose 90 mg/dL (65-105); Magnesium 1.6 mg/dL (1.6-2.3); Sodium 137 mmol/L (137-145)
[2020-10-21 08:56] LABS: Potassium 2.6 mmol/L (3.4-5.0)
[2020-10-21 11:59] LABS: Glucose Point of Care 125 (65-105)
[2020-10-21] MEDS: HEPARIN SODIUM 5,000 UNITS/ML VIAL 5000 UNITS SUB-Q ×2 (12:11→22:01)
[2020-10-21] MEDS: ASPIRIN 81 MG CHEWABLE TABLET PO (13:43)
[2020-10-21] MEDS: busPIRone HCL 5 MG TABLET 15 MG PO ×2 (13:43→17:45)
[2020-10-21] MEDS: clonazePAM (*CRX) 0.5 MG TABLET PO ×2 (13:43→22:00)
[2020-10-21] MEDS: SERTRALINE HCL 25 MG TABLET PO (13:43)
--- NOTE | 2020-10-21 14:30 | PM.IMPN ---
Progress Note: A&P Assessment and Plan (1) Elevated troponin: Code(s): R77.8 - Other specified abnormalities of plasma proteins Status: Acute Assessment and Plan: 10/21/20 14:30 10/19 patient 80-year-old female a resident of [facility] patient had developed shortness of breath and was desaturating in 80s on room air patient was sent to emergency department for further evaluation however on arrival patient was saturating in 90s on room air, patient was diagnosed with COVID and currently in isolation, patient has history diabetes and dementia, patient is isolated, patient is somnolent unable to provide detailed review of symptom, patient tropes are elevated was seen by Cardiology does not suspect acute coronary syndrome rather type 2 medical infarction secondary to shortness of breath and COVID pneumonia, performance analyst did not recommend any more further workup, patient had CT of the chest did not show any pulmonary emboli showed atelectasis pneumonia most likely COVID, and no further workup was recommended. Patient clinically stable has no fever while in the hospital and on room air will continue to monitor and may discharge patient tomorrow 10/20 plan was to discharge patient today is patient is clinically stable but no fever on on room air however at the time of the transportation recheck of the temperature showed patient had a fever of 101 per nursing staff, will cancel discharge will do cbc and UA further recommendation to follow 10/21 plan was to discharge the patient on 10/20 however patient developed the fever of 101 and discharge was canceled unfortunately patient was not able to provide any details review of symptom, this morning patient became hypothermic and was placed on a Manuela Hugger, her temperature now close to normal, patient is hyperkalemia being treated, patient is refusing to take her medication by mouth and had to be crushed and difficult as patient is spits out all her medication, will continue to monitor repelet potassium, reassess the patient in the morning, if remains clinically stable no fever and potassiums close to normal will discharge patient back to [facility]. (2) History of COVID-19: Code(s): Z86.16 - Personal history of COVID-19 Status: Acute Assessment and Plan: In-hospital patient remains stable no fever and on room air was clinically stable plan was to discharge the patient back to nursing however patient developed the fever will monitor (3) Dementia: Code(s): F03.90 - Unspecified dementia without behavioral disturbance Status: Acute Assessment and Plan: Clinically stable (4) Type II diabetes mellitus: Qualifiers: Diabetes mellitus copyman insulin use: unspecified fci insulin use status Diabetes mellitus complication status: with hyperglycemia Qualified Code(s): E11.65 - Type 2 diabetes mellitus with hyperglycemia Code(s): E11.9 - Type 2 diabetes mellitus without complications Status: Chronic Assessment and Plan: Patient is a poor appetite will continue to monitor with sliding scale Subjective Date/time seen: 10/21/20 14:30 10/19 patient 80-year-old female a resident of [facility] patient had developed shortness of breath and was desaturating in 80s on room air patient was sent to emergency department for further evaluation however on arrival patient was saturating in 90s on room air, patient was diagnosed with COVID and currently in isolation, patient has history diabetes and dementia, patient is isolated, patient is somnolent unable to provide detailed review of symptom, patient tropes are elevated was seen by Cardiology does not suspect acute coronary syndrome rather type 2 medical infarction secondary to shortness of breath and COVID pneumonia, performance analyst did not recommend any more further workup, patient had CT of the chest did not show any pulmonary emboli showed atelectasis pneumonia
[2020-10-21 16:19] LABS: Anion Gap 2 mmol/L (8-16); Blood Urea Nitrogen 6 mg/dL (7-17); Calcium 7.6 mg/dL (8.4-10.2); Carbon Dioxide 28 mmol/L (22-30); Chloride 105 mmol/L (98-107); Estimated CRCL calculation 113 ml/min; Estimated Glomerular Filt Rate > 60; Glucose 103 mg/dL (65-105); Magnesium 1.5 mg/dL (1.6-2.3); Sodium 135 mmol/L (137-145)
[2020-10-21 16:34] LABS: Glucose Point of Care 97 (65-105)
[2020-10-21] MEDS: DIVALPROEX SODIUM SPRINKLE 125 MG CAP.DR PO ×2 (17:45→22:01)
[2020-10-21] MEDS: CIPROFLOXACIN 500 MG TAB PO (17:45)
[2020-10-21] MEDS: MAGNESIUM SULF 2 GM/WATER 50ML 2 GM/50 ML BAG IVPB (17:50)
[2020-10-21] MEDS: QUEtiapine FUMARATE 25 MG TABLET PO (22:00)
[2020-10-21] MEDS: mycophenolate mofetiL 250 MG CAPSULE 1000 MG PO (22:00)
[2020-10-21] MEDS: MELATONIN 5 MG TABLET PO (22:01)
[2020-10-22] VITALS (8 sets, daily range): BP systolic 91–144; BP diastolic 40–67; PULSE 63–75; RESP 18–22; TEMP 36.2–37.9; O2SAT 90–94
[2020-10-22] MEDS: SODIUM CHLORIDE 0.9% IV 1,000 ML 75 ML IV CONT (01:57)
[2020-10-22] MEDS: ACETAMINOPHEN 325 MG TABLET 650 MG PO (01:57)
[2020-10-22 02:15] LABS: Glucose Point of Care 94 (65-105)
--- NOTE | 2020-10-22 03:40 | PC.NURSE ---
This patient, Meghana Loyd, was admitted to [facility] Surg Room 325-01 @ 19:20 on 10/21/2020. Patient/family oriented to hospital policies and general routines including ID bracelet, bed and alarms, visiting hours, pain management, procedures, bathroom and other care routines, personal items, smoking policy, room service/diet, and visiting hours. Information on how to activate the Rapid Response Team has been discussed. Patient/Family are encouraged to report perceived risks to care and to ask questions if they do not understand what they are told or what they should do.
[2020-10-22 06:08] LABS: Glucose Point of Care 102 (65-105)
[2020-10-22 06:26] LABS: Anion Gap 1 mmol/L (8-16); Blood Urea Nitrogen 3 mg/dL (7-17); CRP 7.1 mg/dL (<1.0); Calcium 7.2 mg/dL (8.4-10.2); Carbon Dioxide 26 mmol/L (22-30); Chloride 107 mmol/L (98-107); Estimated CRCL calculation 113 ml/min; Estimated Glomerular Filt Rate > 60; Glucose 99 mg/dL (65-105); Sodium 134 mmol/L (137-145)
[2020-10-22 06:28] LABS: Hemoglobin 9.7 g/dL (12.0-15.0); Mean Corpuscular HGB Conc 33.4 g/dl (32-36); Mean Corpuscular Hemoglobin 29.5 pg (26-34); Mean Corpuscular Volume 88.1 fl (80-100); Mean Platelet Volume 9.6 fl (7.4-10.4); Platelet Count Result 278 k/mm3 (150-375); Red Blood Count 3.29 M/mm3 (4.2-5.4); Red Cell Distribution Width 12.4 % (11.5-14.5); White Blood Count 3.9 K/mm3 (4.5-10.0)
[2020-10-22 08:22] LABS: Glucose Point of Care 91 (65-105)
[2020-10-22 08:36] LABS: Magnesium 1.9 mg/dL (1.6-2.3)
[2020-10-22] MEDS: FENOFIBRATE 160 MG TABLET PO (08:40)
[2020-10-22] MEDS: POTASSIUM CHLORIDE 10 MEQ TABLET.ER 20 MEQ PO ×2 (08:40→17:46)
[2020-10-22] MEDS: DIVALPROEX SODIUM SPRINKLE 125 MG CAP.DR PO ×3 (08:40→21:37)
[2020-10-22] MEDS: busPIRone HCL 5 MG TABLET 15 MG PO ×2 (08:41→17:45)
[2020-10-22] MEDS: HEPARIN SODIUM 5,000 UNITS/ML VIAL 5000 UNITS SUB-Q ×2 (08:41→21:38)
[2020-10-22] MEDS: mycophenolate mofetiL 250 MG CAPSULE 1000 MG PO ×2 (08:41→21:37)
[2020-10-22] MEDS: ASPIRIN 81 MG CHEWABLE TABLET PO (08:42)
[2020-10-22] MEDS: SERTRALINE HCL 25 MG TABLET PO (08:42)
[2020-10-22] MEDS: clonazePAM (*CRX) 0.5 MG TABLET PO ×2 (08:45→21:37)
[2020-10-22] MEDS: POTASSIUM CHLORIDE 10 MEQ TABLET 40 MEQ PO (12:10)
[2020-10-22 12:29] LABS: Glucose Point of Care 114 (65-105)
--- NOTE | 2020-10-22 14:05 | PCNFU ---
Nutrition Follow-Up Complete: Inadequate oral intake related to Dementia and Alzheimer's as evidenced by patient refusing to eat or drink anything. Goal: Patient to consume 75% or more of meals on current diet. Patient will continue working towards goal. No new goal at this time. Pt current nutrition is Diabetic Consistent Carbohydrate Diet. Last recorded weight is 50.8 kg. Stable weight upon admission. Bowel Motility: + BM 10/21 Labs Reviewed: Hgb 9.7, Hct 29, Na 134, K 3.0, BUN 3, Cr 0.2 Meds Noted: Buspar, Zoloft, Colace capsule, Novolog, Heparin Sodium, Lorazepam, Glucophage, Kcl tablet Additional Notes: Spoke with patient's nurse due to COVID-19 and dementia. Nurse said patient may be getting discharged today, 10/22. Nurse reported there is no advanced nutrition support needed at this time, per MD. If plan of care changes, consult RD. We will continue to follow her for the remainder of her stay here. She is receiving Glucerna BID providing 220 calories and 10 grams of protein. She has poor intake refusing most meals and only eating around 10% when she does order. Monitor patients labs, medications, weight, and oral intake every 3 days.
--- NOTE | 2020-10-22 14:26 | PCNSR ---
On 10/22/20, the student, Karie Magana, provided care and completed [facility] documentation on this patient. I have reviewed the student's documentation and agree with the findings.
[2020-10-22 16:06] LABS: Anion Gap 3 mmol/L (8-16); Blood Urea Nitrogen 3 mg/dL (7-17); Calcium 7.5 mg/dL (8.4-10.2); Carbon Dioxide 23 mmol/L (22-30); Chloride 112 mmol/L (98-107); Estimated CRCL calculation 113 ml/min; Estimated Glomerular Filt Rate > 60; Glucose 103 mg/dL (65-105); Potassium 4.1 mmol/L (3.4-5.0); Sodium 138 mmol/L (137-145)
[2020-10-22 16:52] LABS: Glucose Point of Care 75 (65-105)
--- NOTE | 2020-10-22 17:00 | PM.DS ---
DS: Admitting Diagnosis Admitting Diagnosis Admitting Diagnosis: Chief Complaint: Low pulse ox in the correction. DS: Discharge Diagnosis Discharge Diagnosis (1) Elevated troponin: Code(s): R77.8 - Other specified abnormalities of plasma proteins Status: Acute Assessment and Plan: 10/21/20 14:30 10/19 patient 80-year-old female a resident of [facility] patient had developed shortness of breath and was desaturating in 80s on room air patient was sent to emergency department for further evaluation however on arrival patient was saturating in 90s on room air, patient was diagnosed with COVID and currently in isolation, patient has history diabetes and dementia, patient is isolated, patient is somnolent unable to provide detailed review of symptom, patient tropes are elevated was seen by Cardiology does not suspect acute coronary syndrome rather type 2 medical infarction secondary to shortness of breath and COVID pneumonia, splitter tender did not recommend any more further workup, patient had CT of the chest did not show any pulmonary emboli showed atelectasis pneumonia most likely COVID, and no further workup was recommended. Patient clinically stable has no fever while in the hospital and on room air will continue to monitor and may discharge patient tomorrow 10/20 plan was to discharge patient today is patient is clinically stable but no fever on on room air however at the time of the transportation recheck of the temperature showed patient had a fever of 101 per nursing staff, will cancel discharge will do cbc and UA further recommendation to follow 10/21 plan was to discharge the patient on 10/20 however patient developed the fever of 101 and discharge was canceled unfortunately patient was not able to provide any details review of symptom, this morning patient became hypothermic and was placed on a Manuela Hugger, her temperature now close to normal, patient is hyperkalemia being treated, patient is refusing to take her medication by mouth and had to be crushed and difficult as patient is spits out all her medication, will continue to monitor repelet potassium, reassess the patient in the morning, if remains clinically stable no fever and potassiums close to normal will discharge patient back to correction. (2) History of COVID-19: Code(s): Z86.16 - Personal history of COVID-19 Status: Acute Assessment and Plan: In-hospital patient remains stable no fever and on room air was clinically stable plan was to discharge the patient back to nursing however patient developed the fever will monitor (3) Dementia: Code(s): F03.90 - Unspecified dementia without behavioral disturbance Status: Acute Assessment and Plan: Clinically stable (4) Type II diabetes mellitus: Qualifiers: Diabetes mellitus exterminator termite insulin use: unspecified senior living insulin use status Diabetes mellitus complication status: with hyperglycemia Qualified Code(s): E11.65 - Type 2 diabetes mellitus with hyperglycemia Code(s): E11.9 - Type 2 diabetes mellitus without complications Status: Chronic Assessment and Plan: Patient is a poor appetite will continue to monitor with sliding scale DS: Summary Hospital Course Reason for hospitalization: Chief Complaint: Low pulse ox in the correction. Narrative: 80 years old female a recent COVID pneumonia and diagnosed 10 days ago was a resident of local Memory Care Unit was transferred to [facility] complaints the patient pulse ox was low at night. Pulse ox was in 80s. When the ambulance picked up the patient pulse ox went up to 90 and 92. In the emergency room patient pulse ox remained stable. Patient was transferred to floor for further management because incidental finding of high troponin in the ER. At present time patient denies any shortness of breath or chest pain. No fever no chills. No abdominal pain no nausea vomiting or
[2020-10-22] MEDS: QUEtiapine FUMARATE 25 MG TABLET PO (21:37)
[2020-10-22] MEDS: MELATONIN 5 MG TABLET PO (21:37)
[2020-10-22 21:57] LABS: Glucose Point of Care 89 (65-105)
[2020-10-23] VITALS: BP 122/46; PULSE 67; RESP 20; TEMP 36.5; O2SAT 92
[2020-10-23 04:00] VITALS: BP 104/43; PULSE 67; RESP 20; TEMP 35.8; O2SAT 100
[2020-10-23 06:05] LABS: Hematocrit 32.8 % (37.0-47.0); Hemoglobin 10.9 g/dL (12.0-15.0); Mean Corpuscular HGB Conc 33.2 g/dl (32-36); Mean Corpuscular Hemoglobin 29.5 pg (26-34); Mean Corpuscular Volume 88.9 fl (80-100); Mean Platelet Volume 9.5 fl (7.4-10.4); Platelet Count Result 306 k/mm3 (150-375); Red Blood Count 3.69 M/mm3 (4.2-5.4); Red Cell Distribution Width 12.6 % (11.5-14.5); White Blood Count 4.6 K/mm3 (4.5-10.0)
[2020-10-23 06:18] LABS: Anion Gap 0 mmol/L (8-16); Blood Urea Nitrogen 3 mg/dL (7-17); CRP 8.4 mg/dL (<1.0); Carbon Dioxide 28 mmol/L (22-30); Chloride 108 mmol/L (98-107); Estimated CRCL calculation 82 ml/min; Estimated Glomerular Filt Rate > 60; Glucose 92 mg/dL (65-105); Sodium 136 mmol/L (137-145)
== END 2020-10-23 07:10 | DRG 177 ==
LOC: ANHED 08:43 → ANHIMU 10:13 → ANH3MEDSUR 10-22 09:49 → ANHIMU 10-27 18:30
PROVIDERS: Emergency Medicine; Admitting Provider Internal Medicine; Emergency Provider Family Medicine; PCP Nurse Practitioner Family; Visit Provider Family Medicine
DX: U07.1 COVID-19 (principal); J12.82 Pneumonia due to coronavirus disease 2019; R77.8 Other specified abnormalities of plasma proteins; R09.02 Hypoxemia; F03.90 Unspecified dementia, unspecified severity, without behavioral disturbance, psychotic disturbance, mood disturbance, and anxiety; E11.65 Type 2 diabetes mellitus with hyperglycemia; M81.0 Age-related osteoporosis without current pathological fracture; E87.5 Hyperkalemia; E78.1 Pure hyperglyceridemia; K21.9 Gastro-esophageal reflux disease without esophagitis; Z79.4 Long term (current) use of insulin; Z79.899 Other long term (current) drug therapy
CPT/HCPCS: 36415; 36600; 71045; 71275; 80048; 80053; 80076; 81001; 82805; 82948; 83690; 83735; 83880; 84484; 85025; 85027; 85610; 85730; 86140; 93005; 93308; 94640; 99285; A9270; J0131; J1644; J3475; J3480; J7030; J7517; Q9967

== ENCOUNTER 2021-07-22 19:43 | Emergency (ER) | payer MEDICARE, SELFPAY ==
[2021-07-22] VITALS (13 sets, daily range): BP systolic 100–155; BP diastolic 51–65; PULSE 87–93; RESP 17–27; TEMP 36.2; O2SAT 96–100
--- NOTE | ~2021-07-22 | XR_ITS ---
XR chest 1V portable 07/22/2021 20:33 Indication: Choking. Hypoxia. Procedure: AP portable chest Comparison: 10/18/2020 Findings: Chronic linear infiltrates of the mid and lower lungs unchanged. Chronic elevation the righ t diaphragm. Cardiomediastinal silhouette is stable. No acute osseous abnormality. Impression: 1: Chronic linear infiltrates of the mid and lower lungs which may represent atelectasis, chronic int erstitial edema or atypical pneumonia. Reviewed, dictated and finalized at location A. [employer]IC BE[employer] WARPER TENDER Impression: 1: Chronic linear infiltrates of the mid and lower lungs which may represent at electasis, chronic interstitial edema or atypical pneumonia.
--- NOTE | 2021-07-22 20:08 | ECG_ITS ---
Measurements Intervals [place] Rate: 89 P: 70 [place]: 219 QRS: 14 QRSD: 92 T: 40 QT: 361 QTc: 440 Interpretive Statements SINUS RHYTHM WITH FIRST DEGREE AV BLOCK INCOMPLETE RIGHT BUNDLE BRANCH BLOCK BORDERLINE T WAVE ABNORMALITY- ANTERIOR LEADS BASELINE ARTIFACT- I, II, III, AVR, AVL ABNORMAL ECG Electronically Signed On 07-22-2021 20:27:21 TUFTING CREELER by Jacob León D.O.
[2021-07-22 20:24] LABS: Alveolar/Arterial O2 Gradient 24.7 mmHg; Base Excess ABG 3.2 mEq/l (+/-2.0); Device ROOM AIR; Fractional Inspired Oxygen 21 %; HCO3 ABG 27.1 mEq/l (22.0-26.0); Methemoglobin ABG 0.1 %THb (0-1.5); Modified Allen's Test Pass; Oxygen Content ABG 16.6 %vol (16.0-22.0); Oxygen Saturation ABG 96.2 % (95.0-100.0); PCO2 ABG 39.1 mmHg (35.0-45.0); PO2 ABG 78.2 mmHg (80.0-100.0); PO2 FiO2 Ratio Arterial Blood 3.72 %; Reduced Hemoglobin 4.9 %THb (0-5.0); Site Drawn LEFT RADIAL; Total Hemoglobin 12.4 g/dL (12.0-18.0); pH ABG 7.459 (7.350-7.450)
--- NOTE | 2021-07-22 20:29 | ED.GENADULT ---
HPI - General Adult General Chief complaint: Unspecified Stated complaint: choking on ham, hypoxia, loc, now a+o Time Seen by Provider: 07/22/21 19:48 Source: patient, family and RN notes reviewed Mode of arrival: EMS Limitations: dementia History of Present Illness HPI narrative: This is an 81 year old female with history of myositis, DM, dementia and hyperlipidemia who presents for evaluation of choking. Patient's is at bedside to help with history. He was told that patient choked on a piece of pepperoni tonight and she had hemlich maneuver performed. They transported patient to ER for concern of damage to her ribs according to patient's . Nursing staff reports EMS states patient choked on ham and she became cyanotic, hypoxic and passed out. Patient is awake and alert and she denies any complaints. She denies chest pain, shortness of breath, nausea, or vomiting. Related Data Home Medications Medication Instructions Recorded Confirmed Caltrate + D3 Plus Minerals 1 tablet PO DAILY 06/29/20 10/18/20 mycophenolate mofetil [CellCept] 1,000 mg PO Q12H 06/29/20 10/18/20 metformin 1,000 mg PO BID 06/30/20 10/18/20 acetaminophen 650 mg PO TID PRN 07/28/20 10/18/20 clonazepam 0.5 mg PO Q12H 07/28/20 10/18/20 divalproex [Depakote] 250 mg PO Q12H 07/28/20 10/18/20 sertraline 25 mg PO DAILY 07/28/20 10/18/20 Colace 100 mg PO BID PRN 10/18/20 10/18/20 buspirone 15 mg PO BID 10/18/20 10/18/20 ciprofloxacin HCl 500 mg PO Q12H 10/18/20 10/18/20 lorazepam [Ativan] 0.5 mg PO BID PRN 10/18/20 10/18/20 Allergies Allergy/AdvReac Type Severity Reaction Status Date / Time cefuroxime Allergy Unknown Unknown Verified 07/22/21 20:06 codeine Allergy Unknown Skin Verified 07/22/21 20:06 irritation metronidazole Allergy Unknown Unknown Verified 07/22/21 20:06 Wkzswoz-YZE-UmV Reductase AdvReac Unknown Verified 07/22/21 20:06 Inhibitor [Yweoaxa-Lsu-Asx Reductase Inhibitor] Review of Systems Review of Systems: ROS unobtainable: Yes other (dementia) [facility] Past Medical History Medical History GERD (gastroesophageal reflux disease) Hypertriglyceridemia Ischemic colitis Myositis Osteoporosis Seasonal allergies Type II diabetes mellitus Surgical History Surgical History Hx of appendectomy Hx of cholecystectomy Family History Family History Mother Dementia Other Unknown family medical history Social History Social History Social History: Ms. Loyd lives at home with her and requires assistance with ambulation and uses a rollator. Her son, Elver, is her POA. She is a full code. Her PCP is Dr. Brizuela. She is a lifelong non-smoker. No alcohol use in many years. No history of drug use. Her father's family history is unknown. Smoking status: Unknown if ever smoked Second hand tobacco smoke exposure: No Alcohol intake: unknown Substance use: unknown Gender identity (if verbalized by the patient): Female Spiritual care concerns: No Agree to blood products: No Exam Const: General: comfortable, no acute distress, well developed and alert Nutritional Appearance: average body habitus Orientation/consciousness: oriented to person HENMT: Head: normocephalic and atraumatic Face and sinus: face symmetric Mouth: Yes Normal oral and palatal mucosa present, Yes lip normal, Yes oropharynx normal and Yes moist mucous membranes Eyes: EOM: EOMs intact bilaterally Chest: Chest palpation & inspection: tenderness (sternum tenderness, no crepitus) Resp: Effort & Inspection: normal respiratory effort and able to speak in complete sentences Auscultation: clear to auscultation bilaterally Cardio: Jugular venous distension: no JVD Rate: regular rate Rhythm: re
[2021-07-22 20:32] LABS: Basophils Percent Auto 0.6 % (0.2-1.2); Eosinophils Absolute Auto 0.4 K/mm3 (0-0.3); Hematocrit 38.9 % (37.0-47.0); Hemoglobin 12.2 g/dL (12.0-15.0); Immature Granulocyte Absolute 0.06 K/mm3 (0.00-0.031); Immature Granulocyte Percent A 0.8 % (0-0.5); Lymphocytes Absolute Auto 2.32 K/mm3 (0.9-3.2); Lymphocytes Percent Auto 32.5 % (18.3-44.2); Mean Corpuscular HGB Conc 31.4 g/dl (32-36); Mean Corpuscular Hemoglobin 30.6 pg (26-34); Mean Corpuscular Volume 97.5 fl (80-100); Mean Platelet Volume 9.7 fl (7.4-10.4); Monocytes Absolute Auto 0.9 K/mm3 (0.1-0.6); Neutrophils Absolute Auto 3.4 K/mm3 (1.3-6.7); Neutrophils Percent Auto 48.1 % (45.5-73.1); Platelet Count Result 206 k/mm3 (150-375); Red Blood Count 3.99 M/mm3 (4.2-5.4); Red Cell Distribution Width 14.3 % (11.5-14.5); White Blood Count 7.1 K/mm3 (4.5-10.0)
--- NOTE | 2021-07-22 20:38 | PC.NURSE ---
Called pharmacy for cellcept.
[2021-07-22 20:46] LABS: Prothrombin Time 12.6 Seconds (11.1-14.7)
[2021-07-22 20:47] LABS: Alanine Aminotransferase 34 U/L (4-35); Albumin Level 3.6 g/dL (3.5-5.1); Alkaline Phosphatase 133 U/L (38-126); Anion Gap 7 mmol/L (8-16); Aspartate Amino Transferase 46 U/L (14-36); Bilirubin,Total 0.3 mg/dL (0.2-1.3); Blood Urea Nitrogen 25 mg/dL (7-17); Calcium 9.2 mg/dL (8.4-10.2); Carbon Dioxide 26 mmol/L (22-30); Chloride 103 mmol/L (98-107); Estimated CRCL calculation 59 ml/min; Estimated Glomerular Filt Rate > 60; Glucose 140 mg/dL (65-110); Partial Thromboplastin Time 26.5 SECONDS (22.3-36.8); Sodium 136 mmol/L (137-145)
[2021-07-22 20:54] LABS: Troponin I < 0.012 ng/mL (0.000-0.034)
--- NOTE | 2021-07-22 21:00 | PC.NURSE ---
CT called to notify full charge bookkeeper that the patient/spouse refused ct of the brain as they did not feel it medically necessary that the patient get a ct scan of her head as it will not change her condition. she is alzheimer/dementia and it will do nothing for her. This full charge bookkeeper attempted to speak with the patient and her poa. SEBAS yelled at full charge bookkeeper multiple times stating ignorance and defensive medicine and its not necessary. isha braxton attempted multiple times to explain the reasoning for the testing, as well as the poa rights to refuse.
--- NOTE | 2021-07-22 21:09 | PC.NURSE ---
ERP Dr. Costello is at the bedside attempting to speak with the at this time. continues to yell and raise his voice.
--- NOTE | 2021-07-22 21:12 | PC.NURSE ---
MD at bedside, explained to multiple times the risks of denying CT scan. refused at this time. MD to cancel CT scan.
[2021-07-22] MEDS: mycophenolate mofetiL 250 MG CAPSULE 1000 MG BY MOUTH (21:14)
--- NOTE | 2021-07-22 21:18 | PC.NURSE ---
Pt tolerated PO medications without difficulty with water.
--- NOTE | 2021-07-22 21:20 | PC.NURSE ---
refused IVF. aware
== END 2021-07-22 22:20 ==
PROVIDERS: Emergency Provider General Practice; PCP Nurse Practitioner Family
DX: T17.928A Food in respiratory tract, part unspecified causing other injury, initial encounter (principal); E86.0 Dehydration; E11.9 Type 2 diabetes mellitus without complications; F03.90 Unspecified dementia, unspecified severity, without behavioral disturbance, psychotic disturbance, mood disturbance, and anxiety; E78.5 Hyperlipidemia, unspecified; M60.9 Myositis, unspecified; Z79.84 Long term (current) use of oral hypoglycemic drugs; K21.9 Gastro-esophageal reflux disease without esophagitis; E78.1 Pure hyperglyceridemia; M81.0 Age-related osteoporosis without current pathological fracture; K55.9 Vascular disorder of intestine, unspecified; I44.0 Atrioventricular block, first degree; I45.10 Unspecified right bundle-branch block; R94.31 Abnormal electrocardiogram [ECG] [EKG]; R91.8 Other nonspecific abnormal finding of lung field
CPT/HCPCS: 36415; 36600; 71045; 80053; 82375; 82805; 83050; 84484; 85025; 85610; 85730; 93005; 99284; J7517

== ENCOUNTER 2022-01-04 10:36 | Inpatient (IN) | payer MEDICARE, SELFPAY ==
[2022-01-04] VITALS (9 sets, daily range): BP systolic 122–159; BP diastolic 67–108; PULSE 105–121; RESP 16–20; TEMP 36.7–36.8; O2SAT 93–100
--- NOTE | ~2022-01-04 | XR_ITS ---
XR chest 1V portable 01/04/2022 11:01 Indication: Weakness. Altered mental status. Procedure: AP portable chest Comparison: 07/22/2021 Findings: Chronic elevation of the right diaphragm, suspicious for phrenic nerve paralysis. There is evidence for chronic granulomatous disease. Chronic left basilar atelectasis/scarring. No acute focal pneumonia, edema or effusion. There are advanced degenerative changes of the shoulders. Impression: 1: No acute cardiopulmonary disease. Reviewed, dictated and finalized at location A. Impression: 1: No acute cardiopulmonary disease.
--- NOTE | ~2022-01-04 | XR_ITS ---
EXAMINATION: XR chest 2V Exam Date/Time: 01/08/2022 19:16 CDT HISTORY: SOB Comparison: None available. RESULT: Lateral views are nondiagnostic. Lines, tubes, and devices: None. Lungs and pleura: Left lower lung airspace disease. Cardiomediastinal silhouette: Stable cardiomediastinal silhouette. Other: No acute osseous or upper abdominal finding. IMPRESSION: Limited examination. Left lower lung opacities may reflect pneumonia in the appropriate clinical cont ext. Reviewed, dictated and finalized at location K. IMPRESSION: Limited examination. Left lower lung opacities may reflect pneumonia in the robby ropriate clinical context.
--- NOTE | ~2022-01-04 | CT_ITS ---
EXAMINATION: CT brain wo con INDICATION: Confusion COMPARISON: 06/29/2020 TECHNIQUE: Standard unenhanced head CT. The dose-length product (DLP) was 529.67 mGy-cm. The mA was a djusted according to patient size. Iterative reconstruction technique was employed. FINDINGS: There is no acute intraparenchymal hemorrhage. No evidence of mass lesion. No evidence of a cute infarction. 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 There is moderate periventricula r and subcortical hypodensity probably related to small vessel ischemic disease. There is moderate pr ominence of the sulci and ventricles related to cerebral atrophy. Intracranial calcified cerebral ath erosclerosis is noted. There are no extra-axial collections. There is no mass effect or midline shift . The orbits and soft tissues are unremarkable. There is mild mucosal thickening of the paranasal sin uses. IMPRESSION: 1. No acute intracranial abnormality. 2. Age related findings. Reviewed, dictated and finalized at location F.
--- NOTE | ~2022-01-04 | XR_ITS ---
EXAMINATION: XR chest 1V portable INDICATION: Shortness of breath TECHNIQUE: Portable AP chest at 1440 hours COMPARISON: 01/04/2022 FINDINGS: The lungs are free of acute opacities. There is no pleural effusion or pneumothorax. The ca rdiomediastinal silhouette is normal. A calcified nodule of the right lung base is consistent with ol d granulomatous disease. There are degenerative changes in the shoulders. IMPRESSION: 1. No acute cardiopulmonary abnormality. Reviewed, dictated and finalized at location F.
--- NOTE | ~2022-01-04 | CT_ITS ---
EXAMINATION: CT brain wo con DATE: 01/08/2022 19:28 INDICATION: SUSPECTED CVA. . TECHNIQUE: Computed tomography (CT) of the head was performed without intravenous contrast. The mA wa s adjusted according to patient size. Iterative reconstruction technique was employed. The dose-lengt h product was 605.33 mGy-cm. COMPARISON: 01/05/2022 FINDINGS: No acute intracranial hemorrhage or extra-axial fluid collection. No hydrocephalus, mass, or herniation. No acute ischemic infarct. Unremarkable dural venous sinus attenuation. No acute osseous abnormality. The aerated spaces are clear. Moderate atrophy and chronic white matter change. Left basal ganglia calcification. Old right basal g anglia lacunar infarct. Atherosclerotic intracranial calcification. Bilateral lens replacements. IMPRESSION: No acute intracranial process. Reviewed, dictated and finalized at location K.
--- NOTE | ~2022-01-04 | US_ITS ---
EXAMINATION: US abdomen complete DATE: 01/06/2022 10:32 INDICATION: Abnormal liver function tests. Thrombocytopenia. TECHNIQUE: Multiple grayscale and Doppler ultrasound images of the abdomen were obtained. COMPARISON: CT abdomen and pelvis 09/24/2019 FINDINGS: There are multiple calcifications in the pancreas including in the main pancreatic duct. Th e pancreatic duct is mildly dilated to 5 mm. These findings are consistent with chronic pancreatitis. The liver is normal without focal lesion. No liver surface nodularity. There is normal flow in main portal vein. The gallbladder is absent. The common duct is dilated to 14 mm. The kidneys are normal i n size. The spleen is normal in size. Abdominal aorta is normal in caliber. Inferior vena cava is nor mal. IMPRESSION: 1. Chronic pancreatitis. 2. Dilatation of the common duct to 14 mm status post cholecystectomy, stable from 09/24/19. Reviewed, dictated and finalized at location A. IMPRESSION: 1. Chronic pancreatitis. 2. Dilatation of the common duct to 14 mm status post cholecystectomy, stable f rom 09/24/19.
--- NOTE | 2022-01-04 10:41 | ECG_ITS ---
Measurements Intervals [place] Rate: 108 P: 83 [place]: 194 QRS: -57 QRSD: 67 T: 58 QT: 318 QTc: 427 Interpretive Statements SINUS TACHYCARDIA LEFT AXIS DEVIATION INCOMPLETE RIGHT BUNDLE BRANCH BLOCK INFERIOR INFARCT, AGE INDETERMINATE BASELINE ARTIFACT- I, II, III, AVR, AVL, AVF, V1-V6 ABNORMAL ECG Electronically Signed On 01-04-2022 14:30:10 CDT by Jacob León D.O.
[2022-01-04 11:03] LABS: Basophils Absolute Auto 0.1 K/mm3 (0.0-0.1); Eosinophils Percent Auto 0.3 % (0-4.4); Hematocrit 45.6 % (37.0-47.0); Hemoglobin 14.5 g/dL (12.0-15.0); Immature Granulocyte Absolute 0.35 K/mm3 (0.00-0.031); Immature Granulocyte Percent A 3.7 % (0-0.5); Lymphocytes Absolute Auto 1.38 K/mm3 (0.9-3.2); Lymphocytes Percent Auto 14.6 % (18.3-44.2); Mean Corpuscular HGB Conc 31.8 g/dl (32-36); Mean Corpuscular Volume 97.4 fl (80-100); Mean Platelet Volume 9.4 fl (7.4-10.4); Monocytes Absolute Auto 1.2 K/mm3 (0.1-0.6); Monocytes Percent Auto 12.8 % (2.6-8.5); Neutrophils Absolute Auto 6.4 K/mm3 (1.3-6.7); Neutrophils Percent Auto 67.6 % (45.5-73.1); Platelet Count Result 79 k/mm3 (150-375); Red Blood Count 4.68 M/mm3 (4.2-5.4); Red Cell Distribution Width 13.7 % (11.5-14.5); White Blood Count 9.5 K/mm3 (4.5-10.0)
[2022-01-04 11:16] LABS: Alanine Aminotransferase 49 U/L (6-35); Albumin Level 3.3 g/dL (3.5-5.1); Alkaline Phosphatase 87 U/L (38-126); Anion Gap 7 mmol/L (8-16); Aspartate Amino Transferase 72 U/L (14-36); Bilirubin,Total 1.3 mg/dL (0.2-1.3); Blood Urea Nitrogen 14 mg/dL (7-17); Calcium 8.9 mg/dL (8.4-10.2); Carbon Dioxide 23 mmol/L (22-30); Chloride 99 mmol/L (98-107); Estimated CRCL calculation 81 ml/min; Estimated Glomerular Filt Rate > 60; Glucose 163 mg/dL (65-110); Potassium 4.3 mmol/L (3.4-5.0); Sodium 129 mmol/L (137-145)
[2022-01-04] MEDS: LACTATED RINGERS 1,000 ML 999 ML IV CONT (11:40)
[2022-01-04 11:55] LABS: Appearance Urine Clear (Clear); Bilirubin Urine 1+ (Negative); Blood Urine Negative (Negative); Color Urine Yellow (Yellow); Glucose Urine UA Negative (Negative); Ketones Urine 1+ mg/dL (Negative); Leukocyte Esterase Ur Negative LEU/UL (Negative); Nitrate Urine Negative (Negative); Protein Urine Negative (Negative); Urobilinogen Urine >=8.0 mg/dL (<2.0); pH Urine 6.5 (5.0-9.0)
[2022-01-04 11:59] LABS: Mucus Urine Rare /lpf; WBC Urine 0-3 /hpf
[2022-01-04 12:02] LABS: Add Urine Microscopic? YES
[2022-01-04] MEDS: HYDROCORTISONE 1% 30 GM CREAM 1 APPLIC TOPICAL (12:14)
[2022-01-04] MEDS: MORPHINE SULFATE (*CRX) 4 MG/ML INJ IV PUSH (12:15)
--- NOTE | 2022-01-04 13:07 | PC.NURSE ---
Report called to Ana IVEY at [facility] and gave nurse to nurse report, discussed pt admit and POC.
--- NOTE | 2022-01-04 13:55 | ED.WEAKNESS ---
HPI - Weakness General Chief complaint: Weakness Stated complaint: Weakness Time Seen by Provider: 01/04/22 10:56 History of Present Illness HPI Narrative: 81-year-old female presents from [facility] after she was found to have a lesion on her left neck, supposedly there been a hairdresser 4 days ago, and afterwards she had a small blister on her left neck, then he started getting bigger and became painful ulcers. Patient unable to provide much other history Related Data Home Medications Medication Instructions Recorded Confirmed mycophenolate mofetil 500 mg 1,000 mg PO Q12H 06/29/20 01/04/22 tablet (CellCept) acetaminophen 650 mg tablet 650 mg PO Q8H PRN Pain 07/28/20 01/04/22 divalproex 250 mg tablet,delayed 250 mg PO TID 07/28/20 01/04/22 release (Depakote) sertraline 25 mg tablet 25 mg PO DAILY 07/28/20 01/04/22 Colace 100 mg PO BID PRN Constipation 10/18/20 01/04/22 buspirone 15 mg tablet 15 mg PO BID 10/18/20 01/04/22 ascorbic acid (vitamin C) 1,000 mg 1 g PO DAILY 01/04/22 01/04/22 tablet (Vitamin C) quetiapine 25 mg tablet (Seroquel) 25 mg PO BID 01/04/22 01/04/22 Allergies Allergy/AdvReac Type Severity Reaction Status Date / Time cefuroxime Allergy Unknown Unknown Verified 01/04/22 16:47 codeine Allergy Unknown Skin Verified 01/04/22 16:47 irritation metronidazole Allergy Unknown Unknown Verified 01/04/22 16:47 Hbemncb-FSI-VjC Reductase AdvReac Unknown Verified 01/04/22 16:47 Inhibitor [Feuspoz-Apk-Rhp Reductase Inhibitor] Review of Systems Review of Systems: ROS unobtainable: Yes unobtainable due to mental status PMFSH Past Medical History Medical History GERD (gastroesophageal reflux disease) Hypertriglyceridemia Ischemic colitis Myositis Osteoporosis Seasonal allergies Type II diabetes mellitus Surgical History Surgical History Hx of appendectomy Hx of cholecystectomy Family History Family History Mother Dementia Other Unknown family medical history Social History Social History Social History: Ms. Loyd lives at home with her and requires assistance with ambulation and uses a rollator. Her son, Elver, is her POA. She is a full code. Her PCP is Dr. Brizuela. She is a lifelong non-smoker. No alcohol use in many years. No history of drug use. Her father's family history is unknown. Smoking status: Unknown if ever smoked Second hand tobacco smoke exposure: No Alcohol intake: never Substance use: never Gender identity (if verbalized by the patient): Female Spiritual care concerns: No Agree to blood products: No Exam Narrative: EXAMINATION OF ORGAN SYSTEMS/BODY AREAS: Constitutional: Vital signs per nursing GENERAL: Resting comfortably HEAD: Normal with no signs of head trauma. EYES: EOMI, conjunctiva normal ENT: Hearing grossly intact, no vesicles in ears LUNGS: Nonlabored breathing. HEART: [Regular rate and rhythm] ABD: [Soft], [nontender to palpation] EXT: Normal range of motion SKIN: Blisters and bullae to left neck with ulcers that go from back of neck to front, painful NEURO: [No gross focal sensory or strength deficits.] PSYCH: Normal affect Course Vital Signs Vital signs: Vital Signs Temperature 98.0 F 01/04/22 10:35 Pulse Rate 113 H 01/04/22 10:35 Respiratory Rate 16 01/04/22 10:35 Blood Pressure 157/108 H 01/04/22 10:35 Pulse Oximetry 100 01/04/22 10:35 Oxygen Delivery Room Air 01/04/22 10:35 Temperature 98.0 F 01/04/22 10:35 Pulse Rate 105 H 01/04/22 14:48 Respiratory Rate 19 01/04/22 14:48 Blood Pressure 130/72 01/04/22 14:48 Pulse Oximetry 100 01/04/22 14:48 Oxygen Delivery Room Air 01/04/22 16:14 MDM - Weakness MDM Narrative Medical decision making narrative:
--- NOTE | 2022-01-04 15:15 | PC.NURSE ---
This patient, Meghana Loyd, was admitted to [facility] Surg Room 333-01. Patient/family oriented to hospital policies and general routines including ID bracelet, bed and alarms, visiting hours, pain management, procedures, bathroom and other care routines, personal items, smoking policy, room service/diet, and visiting hours.Report received from iMryam IVEY. Information on how to activate the Rapid Response Team has been discussed. Patient/Family are encouraged to report perceived risks to care and to ask questions if they do not understand what they are told or what they should do.
[2022-01-04] MEDS: SODIUM CHLORIDE 0.9% IV 1,000 ML 100 ML IV CONT (17:12)
--- NOTE | 2022-01-04 21:06 | PM.IMHP ---
H&P: HPI History of Present Illness Date/Time: Patient was placed observation status for expected length of stay less than 23 hours for management, will plan to re-evaluate tomorrow for improvement. 01/04/22 21:06 Chief Complaint: Weakness Narrative: Ms. Loyd is an 81-year-old female who was sent to the emergency room from her memory care center with a rash to the Left side of her neck that starts midline in the back and wraps around laterally to midline from. There are multiple small blisters noted to patient's anterior and lateral neck left neck and a 1 in bulla noted to patient's left posterior neck. I am unable to get any type of history from patient secondary to her dementia and orientation is self only. At baseline patient is oriented to self only. When patient is asked if something hurts she will just answer yes. Per ER records patient did have her hair cut 4-5 days ago and then her family believes that the rash may have started. Per previous records patient does have a known history of GERD, hypertriglyceridemia, ischemic colitis, myositis, osteoporosis, and type 2 diabetes mellitus. Review of Systems Review of Systems: Unable to obtain review of systems secondary to patient's underlying dementia clinical condition. [facility] Past Medical History Medical History GERD (gastroesophageal reflux disease) Hypertriglyceridemia Ischemic colitis Myositis Osteoporosis Seasonal allergies Type II diabetes mellitus Surgical History Surgical History Hx of appendectomy Hx of cholecystectomy Family History Family History Mother Dementia Other Unknown family medical history Social History Social History Social History: Ms. Loyd lives at home with her and requires assistance with ambulation and uses a rollator. Her son, Elver, is her POA. She is a full code. Her PCP is Dr. Brizuela. She is a lifelong non-smoker. No alcohol use in many years. No history of drug use. Her father's family history is unknown. Smoking status: Unknown if ever smoked Second hand tobacco smoke exposure: No Alcohol intake: never Substance use: never Gender identity (if verbalized by the patient): Female Spiritual care concerns: No Agree to blood products: No Meds Home Medications and Allergies Home Medications Medication Instructions Recorded Confirmed Type mycophenolate mofetil 500 mg 1,000 mg PO Q12H 06/29/20 01/04/22 History tablet (CellCept) lancets 30 gauge (LaurenTouch Delica #1 pkg 07/03/20 01/04/22 Rx Plus Lancet) melatonin 5 mg tablet 5 mg PO HS #30 tabs 07/03/20 01/04/22 Rx acetaminophen 650 mg tablet 650 mg PO Q8H PRN Pain 07/28/20 01/04/22 History divalproex 250 mg tablet,delayed 250 mg PO TID 07/28/20 01/04/22 History release (Depakote) sertraline 25 mg tablet 25 mg PO DAILY 07/28/20 01/04/22 History Colace 100 mg PO BID PRN Constipation 10/18/20 01/04/22 History buspirone 15 mg tablet 15 mg PO BID 10/18/20 01/04/22 History aspirin 81 mg chewable tablet 81 mg PO DAILY@0800 #30 tabs 10/20/20 01/04/22 Rx (Children's Aspirin) fenofibrate 160 mg tablet 160 mg PO DAILY #90 tabs 04/14/21 01/04/22 Rx potassium chloride 10 mEq 20 meq PO BID #360 tabs 04/29/21 01/04/22 Rx tablet,extended release ascorbic acid (vitamin C) 1,000 mg 1 g PO DAILY 01/04/22 01/04/22 History tablet (Vitamin C) quetiapine 25 mg tablet (Seroquel) 25 mg PO BID 01/04/22 01/04/22 History Allergies Allergy/AdvReac Type Severity Reaction Status Date / Time cefuroxime Allergy Unknown Unknown Verified 01/04/22 16:47 codeine Allergy Unknown Skin Verified 01/04/22 16:47 irritation metronidazole Allergy Unknown Unknown Verified 01/04/22 16:47 Dfortfl-ADI-AxF Reductase AdvReac Unknown Verified 01/04/22 16:47 Inhibit
[2022-01-04 21:36] LABS: Glucose Point of Care 117 mg/dl (65-105)
--- NOTE | 2022-01-05 01:25 | PC.NURSE ---
Pt would not take cellcept by swallowing capsule whole. [employer]ling Equipment Sales Representative called pharmacy to find out if these capsules could be opened and the powder inside be given in food. Bottling Equipment Sales Representative spoke to Zackery in pharmacy and capsules are not to be opened. Zackery explained that the only dosage we offer here is divided differently than the home dosage pt normally takes. Zackery also confirmed we do not carry an oral suspension. [employer]ling Equipment Sales Representative communicated to Amanda IVEY about contacting family to possibly bring home medication here.
[2022-01-05] MEDS: SODIUM CHLORIDE 0.9% IV 1,000 ML 100 ML IV CONT (05:13)
[2022-01-05 05:48] VITALS: BP 116/82; PULSE 114; RESP 16; TEMP 36.1; O2SAT 100
[2022-01-05 09:20] VITALS: O2SAT 94
[2022-01-05 09:40] LABS: Basophils Absolute Auto 0.1 K/mm3 (0.0-0.1); Basophils Percent Auto 0.7 % (0.2-1.2); Eosinophils Percent Auto 0.1 % (0-4.4); Hematocrit 40.3 % (37.0-47.0); Hemoglobin 13.4 g/dL (12.0-15.0); Immature Granulocyte Percent A 3.3 % (0-0.5); Immature Platelet Fraction Pct 3.1 % (0.9-11.2); Lymphocytes Absolute Auto 1.24 K/mm3 (0.9-3.2); Lymphocytes Percent Auto 13.7 % (18.3-44.2); Mean Corpuscular HGB Conc 33.3 g/dl (32-36); Mean Corpuscular Hemoglobin 31.6 pg (26-34); Mean Platelet Volume 9.7 fl (7.4-10.4); Monocytes Absolute Auto 1.1 K/mm3 (0.1-0.6); Monocytes Percent Auto 11.6 % (2.6-8.5); Neutrophils Absolute Auto 6.4 K/mm3 (1.3-6.7); Neutrophils Percent Auto 70.6 % (45.5-73.1); Platelet Count Result 75 k/mm3 (150-375); Red Blood Count 4.24 M/mm3 (4.2-5.4); Red Cell Distribution Width 13.5 % (11.5-14.5); White Blood Count 9.1 K/mm3 (4.5-10.0)
[2022-01-05 09:58] LABS: Anion Gap 4 mmol/L (8-16); Blood Urea Nitrogen 11 mg/dL (7-17); Calcium 7.6 mg/dL (8.4-10.2); Carbon Dioxide 26 mmol/L (22-30); Chloride 97 mmol/L (98-107); Estimated CRCL calculation 111 ml/min; Estimated Glomerular Filt Rate > 60; Glucose 114 mg/dL (65-110); Magnesium 1.7 mg/dL (1.6-2.3); Potassium 3.7 mmol/L (3.4-5.0); Sodium 127 mmol/L (137-145)
[2022-01-05] MEDS: ACETAMINOPHEN 325 MG TABLET 650 MG PO ×2 (10:11→15:51)
[2022-01-05] MEDS: ASPIRIN 81 MG CHEWABLE TABLET PO (10:12)
[2022-01-05] MEDS: DIVALPROEX SODIUM DR 250 MG TABEC PO (10:12)
[2022-01-05] MEDS: FENOFIBRATE 160 MG TABLET PO (10:12)
[2022-01-05] MEDS: busPIRone HCL 5 MG TABLET 15 MG PO ×2 (10:12→16:56)
[2022-01-05] MEDS: ASCORBIC ACID 500 MG TABLET 1000 MG PO (10:13)
[2022-01-05] MEDS: mycophenolate mofetiL 250 MG CAPSULE 1000 MG PO (10:13)
[2022-01-05] MEDS: POTASSIUM CHLORIDE 20 MEQ TABLET PO ×2 (10:13→16:57)
[2022-01-05] MEDS: QUEtiapine FUMARATE 25 MG TABLET PO ×2 (10:13→22:22)
[2022-01-05] MEDS: SERTRALINE HCL 25 MG TABLET PO (10:14)
--- NOTE | 2022-01-05 12:58 | PHAR ---
HOME MED VERIFIED CELLCEPT 500MG TABLETS 2 BID
[2022-01-05 14:00] VITALS: BP 140/70; PULSE 108; RESP 22; TEMP 36.9; O2SAT 95
--- NOTE | 2022-01-05 14:01 | PM.IMPN ---
Progress Note: A&P Assessment and Plan (1) Blister of neck: Code(s): S10.92XA - Blister (nonthermal) of unspecified part of neck, initial encounter Status: Acute Assessment and Plan: blisters are different stages of healing. It does appear that this could be shingles since it does follow a dermatome. Patient was given acyclovir in the emergency room. Will continue with current therapy and change patient to oral acyclovir at discharge. Next like there might be some super added infection. Will add Unasyn for skin and soft tissue infection (2) Hyponatremia: Code(s): E87.1 - Hypo-osmolality and hyponatremia Status: Acute Assessment and Plan: Likely has poor p.o. intake. On normal saline at 800 cc an hour will lower down to 50 cc an hour. She is a bit volume overloaded clinically. Will recheck her chest x-ray today. Speech is seen her and evaluated for an oral diet. We might need to keep her NPO until she is more alert. Check urine studies Check a TSH Check cortisol random level (3) Thrombocytopenia: Code(s): D69.6 - Thrombocytopenia, unspecified Status: Acute Assessment and Plan: Unknown etiology at this time. There are certain medications the patient was taking they could cause thrombocytopenia, but she has been on these medications for quite some time and this is the 1st from her the thrombocytopenia has been noted. Hematology has been consult and appreciate further recommendations. Dr. 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 Loyd is an 81-year-old female who was sent to the emergency room from her [facility]? with a rash to the ? Left side of her neck that starts midline in the back and wraps around laterally to midline from.? There are multiple small blisters noted to patient's anterior and lateral neck left neck and a 1 in bulla noted to patient's left posterior neck.? I am unable to get any type of history from patient secondary to her dementia and orientation is self only.? At baseline patient is oriented to self only.? When patient is asked if something hurts she will just answer yes.? Per ER records patient did have her hair cut 4-5 days ago and then? her family believes that the rash may have started. Per previous records patient does have a known history of GERD, hypertriglyceridemia, ischemic colitis, myositis, osteoporosis, and type 2 diabetes mellitus. 01/05/2022 she remains lethargic and not able to verbalize much. Moans and groans on verbal commands. Review of system could not be completed. Noted to be tachycardic and afebrile Exam Narrative: Constitutional: Patient is lethargic, tremulous, in no acute distress. not alert on my evaluation HEENT: Moist mucous membranes. No scleral icterus. No lymphadenopathy. No blisters noted to left ear canal. There are scabbed areas to patient's ear lobe. Neck: supple Lungs: Lung sounds coarse with some expiratory rhonchi heard, no accessory muscle use. Cardiovascular: Apical pulse is regular rate and rhythm. S1-S2 noted, no S3 or S4 noted. No gallops, murmurs, or rubs noted. Abdomen: Soft, round, and nontender. No palpable masses. Extremities: No edema. Nontender. puffy upper extremities noted Skin: patient has multiple scab and open blistered areas to her left neck that start midline anteriorly and wrap around laterally and then go
[2022-01-05] MEDS: DIVALPROEX SODIUM SPRINKLE 125 MG CAP.DR 250 MG PO ×2 (14:56→16:57)
[2022-01-05] MEDS: AMPICILLIN SULB 1.5 GM/NS 50ML 1.5 GM/50 ML VIAL IVPB (15:51)
[2022-01-05 16:05] LABS: Lactic Acid Reflex 1.3 mmol/L (0.7-2.0)
--- NOTE | 2022-01-05 18:27 | PDONCCN ---
HPI - Date of Consult Date/Time: 01/05/22 18:27 Requesting Physician: Cristi Yi MD Primary Care Provider: Anastasiia Joaquin MD - Consult Narrative Reason for consult: Thrombocytopenia Narrative: Meghana Loyd is a 81 year old female who is a memory care center resident brought into the hospital with rash on the left side of the neck and the left year. She had multiple blisters on the anterior and lateral neck. She has dementia and not able to give much history. She has been complaining of some abdominal pain. Denies any fevers and chills. Labs showed [place] [address] showed no acute intracranial abnormality. Patient was diagnosed with shingles and was started on acyclovir along with Unasyn for the superimposed bacterial infection. Review of Systems - Review of Systems All systems reviewed & are unremarkable except as noted in HPI and [facility] Medical History: Medical History (Last Reviewed 01/04/22 @ 20:23 by Jessica Jasso MD) GERD (gastroesophageal reflux disease) Hypertriglyceridemia Ischemic colitis Myositis Osteoporosis Seasonal allergies Type II diabetes mellitus Surgical History: Surgical History (Last Reviewed 01/04/22 @ 20:23 by Jessica Jasso MD) Hx of appendectomy Hx of cholecystectomy Family History: Family History (Last Reviewed 01/04/22 @ 20:23 by Jessica Jasso MD) Mother Dementia Other Unknown family medical history - Social History Social History: Social History (Last Reviewed 01/04/22 @ 20:23 by Jessica Jasso MD) Gender Identity: Gender identity (if verbalized by the patient): Female Alcohol Use: Alcohol intake: never Substance Use: Substance use: never Others: Spiritual care concerns: No Agree to blood products: No Smoking Status: Smoking status: Unknown if ever smoked Second hand tobacco smoke exposure: No Meds Home Medications Medication Instructions Recorded Confirmed Type mycophenolate mofetil 500 mg 1,000 mg PO Q12H 06/29/20 01/04/22 History tablet (CellCept) lancets 30 gauge (OneTouch Delica #1 pkg 07/03/20 01/04/22 Rx Plus Lancet) melatonin 5 mg tablet 5 mg PO HS #30 tabs 07/03/20 01/04/22 Rx acetaminophen 650 mg tablet 650 mg PO Q8H PRN Pain 07/28/20 01/04/22 History divalproex 250 mg tablet,delayed 250 mg PO TID 07/28/20 01/04/22 History release (Depakote) sertraline 25 mg tablet 25 mg PO DAILY 07/28/20 01/04/22 History Colace 100 mg PO BID PRN Constipation 10/18/20 01/04/22 History buspirone 15 mg tablet 15 mg PO BID 10/18/20 01/04/22 History aspirin 81 mg chewable tablet 81 mg PO DAILY@0800 #30 tabs 10/20/20 01/04/22 Rx (Children's Aspirin) fenofibrate 160 mg tablet 160 mg PO DAILY #90 tabs 04/14/21 01/04/22 Rx potassium chloride 10 mEq 20 meq PO BID #360 tabs 04/29/21 01/04/22 Rx tablet,extended release ascorbic acid (vitamin C) 1,000 mg 1 g PO DAILY 01/04/22 01/04/22 History tablet (Vitamin C) quetiapine 25 mg tablet (Seroquel) 25 mg PO BID 01/04/22 01/04/22 History Allergies Allergy/AdvReac Type Severity Reaction Status Date / Time cefuroxime Allergy Unknown Unknown Verified 01/04/22 16:47 codeine Allergy Unknown Skin Verified 01/04/22 16:47 irritation metronidazole Allergy Unknown Unknown Verified 01/04/22 16:47 [id number]-[id number] Reductase AdvReac Unknown Verified 01/04/22 16:47 Inhibitor [Uakehec-Pdt-Dsr Reductase Inhibitor] Results - Labs CBC & Chem 7: 01/05/22 09:28 01/05/22 09:28 Labs: Short CBC 01/05/22 Range/Units 09:28 WBC 9.1 (4.5-10.0) K/mm3 Hgb 13.4 (12.0-15.0) g/dL Hct 40.3 (37.0-47.0) % Plt Count 75 L (150-375) k/mm3 BMP 01/05/22 09:28 Sodium 127 L Potassium 3.7 Chloride 97 L Carbon Dioxide 26 BUN 11 Creatinine 0.20 L Glucose 114 H Calcium 7.6 L Assessment and Plan - Additional Plan Thrombocytopenia. Patient is a 81-y
[2022-01-05 19:52] LABS: Iron 42 ug/dL (37-170)
[2022-01-05 19:53] LABS: Percent Iron Saturation 16 % (20-50)
[2022-01-05 20:10] VITALS: PULSE 70; RESP 20; O2SAT 90
[2022-01-05 20:43] LABS: Folic Acid 10.9 ng/mL (2.76->20)
[2022-01-05 20:59] LABS: Total Triiodothyronine (T3) 0.78 NG/ML (0.97-1.69)
[2022-01-05] MEDS: IPRATROPIUM BR 0.02% INH SOLN 0.5 MG/2.5 ML VIAL INHALATION (21:40)
[2022-01-05 22:00] VITALS: BP 124/84; PULSE 70; RESP 20; TEMP 36.2; O2SAT 90
[2022-01-05] MEDS: SODIUM CHLORIDE 0.9% IV 1,000 ML 50 ML IV CONT (22:14)
[2022-01-05] MEDS: MELATONIN 5 MG TABLET PO (22:24)
[2022-01-06] VITALS (11 sets, daily range): BP systolic 119–149; BP diastolic 51–85; PULSE 75–85; RESP 16–18; TEMP 36.1–37.1; O2SAT 90–98; BMI 11.0
[2022-01-06] MEDS: AMPICILLIN SULB 1.5 GM/NS 50ML 1.5 GM/50 ML VIAL IVPB ×4 (01:02→17:40)
[2022-01-06] MEDS: IPRATROPIUM BR 0.02% INH SOLN 0.5 MG/2.5 ML VIAL INHALATION ×2 (08:58→20:47)
[2022-01-06 09:42] LABS: Basophils Absolute Auto 0.1 K/mm3 (0.0-0.1); Basophils Percent Auto 0.3 % (0.2-1.2); Eosinophils Percent Auto 0.2 % (0-4.4); Hematocrit 35.1 % (37.0-47.0); Hemoglobin 11.8 g/dL (12.0-15.0); Immature Granulocyte Absolute 0.26 K/mm3 (0.00-0.031); Immature Granulocyte Percent A 1.5 % (0-0.5); Immature Platelet Fraction Pct 3.4 % (0.9-11.2); Lymphocytes Absolute Auto 1.63 K/mm3 (0.9-3.2); Lymphocytes Percent Auto 9.2 % (18.3-44.2); Mean Corpuscular HGB Conc 33.6 g/dl (32-36); Mean Corpuscular Hemoglobin 31.6 pg (26-34); Mean Corpuscular Volume 94.1 fl (80-100); Mean Platelet Volume 9.7 fl (7.4-10.4); Monocytes Absolute Auto 1.1 K/mm3 (0.1-0.6); Monocytes Percent Auto 6.3 % (2.6-8.5); Neutrophils Absolute Auto 14.7 K/mm3 (1.3-6.7); Neutrophils Percent Auto 82.5 % (45.5-73.1); Platelet Count Result 85 k/mm3 (150-375); Red Blood Count 3.73 M/mm3 (4.2-5.4); Red Cell Distribution Width 13.3 % (11.5-14.5); White Blood Count 17.8 K/mm3 (4.5-10.0)
[2022-01-06 09:54] LABS: Alanine Aminotransferase 41 U/L (6-35); Albumin Level 2.3 g/dL (3.5-5.1); Alkaline Phosphatase 93 U/L (38-126); Anion Gap 2 mmol/L (8-16); Aspartate Amino Transferase 52 U/L (14-36); Bilirubin,Total 0.9 mg/dL (0.2-1.3); Blood Urea Nitrogen 8 mg/dL (7-17); Calcium 7.3 mg/dL (8.4-10.2); Carbon Dioxide 26 mmol/L (22-30); Chloride 99 mmol/L (98-107); Creatine Kinase 98 U/L (30-135); Estimated CRCL calculation 111 ml/min; Estimated Glomerular Filt Rate > 60; Glucose 211 mg/dL (65-110); Magnesium 1.6 mg/dL (1.6-2.3); Potassium 3.4 mmol/L (3.4-5.0); Sodium 127 mmol/L (137-145)
[2022-01-06] MEDS: GABAPENTIN 300 MG CAPSULE PO ×2 (11:17→21:45)
[2022-01-06] MEDS: DIVALPROEX SODIUM SPRINKLE 125 MG CAP.DR 250 MG PO ×3 (11:17→17:39)
[2022-01-06] MEDS: QUEtiapine FUMARATE 25 MG TABLET PO ×2 (11:18→21:46)
[2022-01-06] MEDS: ASCORBIC ACID 500 MG TABLET 1000 MG PO (11:18)
[2022-01-06] MEDS: ASPIRIN 81 MG CHEWABLE TABLET PO (11:18)
[2022-01-06] MEDS: busPIRone HCL 5 MG TABLET 15 MG PO ×2 (11:19→17:39)
[2022-01-06] MEDS: POTASSIUM CHLORIDE 20 MEQ TABLET PO ×2 (11:19→17:40)
[2022-01-06] MEDS: SERTRALINE HCL 25 MG TABLET PO (11:19)
[2022-01-06] MEDS: FENOFIBRATE 160 MG TABLET PO (11:20)
--- NOTE | 2022-01-06 11:50 | PM.IMPN ---
Progress Note: A&P Assessment and Plan (1) Blister of neck: Code(s): S10.92XA - Blister (nonthermal) of unspecified part of neck, initial encounter Status: Acute Assessment and Plan: blisters are different stages of healing. It does appear that this could be shingles since it does follow a dermatome. Patient was given acyclovir in the emergency room. Will continue with current therapy and change patient to oral acyclovir at discharge. Next like there might be some super added infection. Will add Unasyn for skin and soft tissue infection. WBC count elevated today will continue to monitor with IV antibiotics (2) Hyponatremia: Code(s): E87.1 - Hypo-osmolality and hyponatremia Status: Acute Assessment and Plan: Likely has poor p.o. intake. On normal saline at 100 cc an hour will lower down to 50 cc an hour. She is a bit volume overloaded clinically. Recheck chest x-ray 01/05/2022 with no acute findings. Speech is seen her and evaluated for an oral diet. We might need to keep her NPO until she is more alert. Urine studies ordered. TSH mildly elevated random cortisol appropriate Sodium level stable today (3) Thrombocytopenia: Code(s): D69.6 - Thrombocytopenia, unspecified Status: Acute Assessment and Plan: Unknown etiology at this time. There are certain medications the patient was taking they could cause thrombocytopenia, but she has been on these medications for quite some time and this is the 1st from her the thrombocytopenia has been noted. Hematology has been consult and appreciate further recommendations. Dr. 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 She has allergy to codeine. Discussed pain control with the family. Will start low-dose hydrocodone. Add morphine IV p.r.n. Tylenol scheduled and she has also been started on gabapentin. Will change government in the scheduled Code status full code noted patient currently non decisional Subjective Date/time seen: 01/06/22 11:50 Interval history: HPI: Ms. Loyd is an 81-year-old female who was sent to the emergency room from her memory care center? with a rash to the ? Left side of her neck that starts midline in the back and wraps around laterally to midline from.? There are multiple small blisters noted to patient's anterior and lateral neck left neck and a 1 in bull[place] noted to patient's left posterior neck.? I am unable to get any type of history from patient secondary to her dementia and orientation is self only.? At baseline patient is oriented to self only.? When patient is asked if something hurts she will just answer yes.? Per ER records patient did have her hair cut 4-5 days ago and then? her family believes that the rash may have started. Per previous records patient does have a known history of GERD, hypertriglyceridemia, ischemic colitis, myositis, osteoporosis, and type 2 diabetes mellitus. 01/05/2022 she remains lethargic and not able to verbalize much. Moans and groans on verbal commands. Review of system could not be completed. Noted to be tachycardic and afebrile 01/06/2022 patient more awake today restless and constantly saying pretty please. Family at bedside and discussed with them. Remains afebrile. Vitals stable. Review of Systems Review of Systems: ROS unobtainable: Yes unobtainable due to mental status Exam Narrative: Constitutional: Patient is awake in mild distress seems to be due
--- NOTE | 2022-01-06 13:08 | WPDCDIQUERY2 ---
CDI Query Clarification Request 01/05 Oncology documented: -Patient was diagnosed with shingles and was started on acyclovir along with Unasyn for the superimposed bacterial infection. 01/05 [facility] documented: Assessment and Plan (1) Blister of neck: ?Code(s): S10.92XA - Blister (nonthermal) of unspecified part of neck, initial encounter ?Status:?Acute ?Assessment and Plan: -?blisters are different stages of healing.? It does appear that this could be shingles since it does follow? a dermatome.? Patient was given? acyclovir in the emergency room.? Will continue with current therapy and change patient to oral acyclovir at discharge.? Next like there might be some super added infection.? Will add Unasyn for skin and soft tissue infection.? WBC count elevated today will continue to monitor with IV antibiotics Please clarify if diagnosis: Shingles, has been ruled in, ruled out or unable to be determined <Huma Padilla - Last Filed: 01/06/22 13:11> Provider Comments shingles ruled in <Cristi Yi MD - Last Filed: 01/07/22 07:49>
[2022-01-06] MEDS: MORPHINE SULFATE (*CRX) 2 MG/ML INJ IV PUSH (13:26)
--- NOTE | 2022-01-06 14:52 | PCRCNOTE ---
1400 breathing tx not done. Pt has been agitated & screaming all day and is now asleep. RN and myself agreed it was best to let pt rest.
[2022-01-06] MEDS: ACETAMINOPHEN 500 MG TABLET PO (17:39)
[2022-01-06] MEDS: MELATONIN 5 MG TABLET PO (21:45)
[2022-01-06] MEDS: SODIUM CHLORIDE 0.9% IV 1,000 ML 50 ML IV CONT (21:49)
[2022-01-07] VITALS (14 sets, daily range): BP systolic 119–132; BP diastolic 76–90; PULSE 76–110; RESP 16–20; TEMP 36.1–37.2; O2SAT 87–98
[2022-01-07] MEDS: AMPICILLIN SULB 1.5 GM/NS 50ML 1.5 GM/50 ML VIAL IVPB ×5 (00:58→23:53)
[2022-01-07] MEDS: IPRATROPIUM BR 0.02% INH SOLN 0.5 MG/2.5 ML VIAL INHALATION ×4 (02:44→19:54)
[2022-01-07] MEDS: GABAPENTIN 300 MG CAPSULE PO ×3 (05:13→21:54)
[2022-01-07 06:12] LABS: Basophils Absolute Auto 0.1 K/mm3 (0.0-0.1); Basophils Percent Auto 0.3 % (0.2-1.2); Eosinophils Absolute Auto 0.1 K/mm3 (0-0.3); Eosinophils Percent Auto 0.4 % (0-4.4); Hematocrit 33.3 % (37.0-47.0); Hemoglobin 11.3 g/dL (12.0-15.0); Immature Granulocyte Absolute 0.21 K/mm3 (0.00-0.031); Immature Granulocyte Percent A 1.2 % (0-0.5); Lymphocytes Absolute Auto 1.18 K/mm3 (0.9-3.2); Lymphocytes Percent Auto 6.5 % (18.3-44.2); Mean Corpuscular HGB Conc 33.9 g/dl (32-36); Mean Corpuscular Hemoglobin 31.6 pg (26-34); Mean Platelet Volume 9.8 fl (7.4-10.4); Monocytes Absolute Auto 1.1 K/mm3 (0.1-0.6); Neutrophils Absolute Auto 15.5 K/mm3 (1.3-6.7); Neutrophils Percent Auto 85.6 % (45.5-73.1); Platelet Count Result 86 k/mm3 (150-375); Red Blood Count 3.58 M/mm3 (4.2-5.4); Red Cell Distribution Width 13.2 % (11.5-14.5); White Blood Count 18.1 K/mm3 (4.5-10.0)
[2022-01-07 06:40] LABS: Alanine Aminotransferase 34 U/L (6-35); Albumin Level 2.1 g/dL (3.5-5.1); Alkaline Phosphatase 77 U/L (38-126); Anion Gap 2 mmol/L (8-16); Aspartate Amino Transferase 44 U/L (14-36); Bilirubin,Total 0.7 mg/dL (0.2-1.3); Blood Urea Nitrogen 9 mg/dL (7-17); Calcium 7.3 mg/dL (8.4-10.2); Carbon Dioxide 25 mmol/L (22-30); Chloride 100 mmol/L (98-107); Estimated CRCL calculation 111 ml/min; Estimated Glomerular Filt Rate > 60; Glucose 113 mg/dL (65-110); Magnesium 1.7 mg/dL (1.6-2.3); Potassium 3.5 mmol/L (3.4-5.0); Sodium 127 mmol/L (137-145)
[2022-01-07] MEDS: DIVALPROEX SODIUM SPRINKLE 125 MG CAP.DR 250 MG PO ×3 (09:35→17:23)
[2022-01-07] MEDS: busPIRone HCL 5 MG TABLET 15 MG PO ×2 (09:36→17:22)
[2022-01-07] MEDS: ASCORBIC ACID 500 MG TABLET 1000 MG PO (09:36)
[2022-01-07] MEDS: POTASSIUM CHLORIDE 20 MEQ TABLET PO ×2 (09:37→17:23)
[2022-01-07] MEDS: ASPIRIN 81 MG CHEWABLE TABLET PO (09:37)
[2022-01-07] MEDS: FENOFIBRATE 160 MG TABLET PO (09:37)
[2022-01-07] MEDS: ACETAMINOPHEN 500 MG TABLET PO ×2 (09:38→17:23)
[2022-01-07] MEDS: SERTRALINE HCL 25 MG TABLET PO (09:38)
[2022-01-07] MEDS: QUEtiapine FUMARATE 25 MG TABLET PO ×2 (09:39→21:53)
--- NOTE | 2022-01-07 10:52 | PM.IMPN ---
Progress Note: A&P Assessment and Plan (1) Blister of neck: Code(s): S10.92XA - Blister (nonthermal) of unspecified part of neck, initial encounter Status: Acute Assessment and Plan: blisters are different stages of healing. It does appear that this could be shingles since it does follow a dermatome. Patient was given acyclovir in the emergency room. Will continue with current therapy and change patient to oral acyclovir at discharge. Next like there might be some super added infection. Will add Unasyn for skin and soft tissue infection. WBC count continues to be elevated will continue to monitor with IV antibiotics Unasyn. Recheck in a.m. add vancomycin if persistent elevation (2) Hyponatremia: Code(s): E87.1 - Hypo-osmolality and hyponatremia Status: Acute Assessment and Plan: Likely has poor p.o. intake. On normal saline at 100 cc an hour will lower down to 50 cc an hour. She is a bit volume overloaded clinically. Recheck chest x-ray 01/05/2022 with no acute findings. Speech is seen her and evaluated for an oral diet. We might need to keep her NPO until she is more alert. Urine studies ordered. TSH mildly elevated random cortisol appropriate Sodium level stable (3) Thrombocytopenia: Code(s): D69.6 - Thrombocytopenia, unspecified Status: Acute Assessment and Plan: Unknown etiology at this time. There are certain medications the patient was taking they could cause thrombocytopenia, but she has been on these medications for quite some time and this is the 1st from her the thrombocytopenia has been noted. Hematology has been consult and appreciate further recommendations. Dr. 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 She has allergy to codeine. Discussed pain control with the family. Will start low-dose hydrocodone. Add morphine IV p.r.n. Tylenol scheduled and she has also been started on gabapentin. Will change gabapentin to scheduled Code status full code noted patient currently non decisional Subjective Date/time seen: 01/07/22 10:52 Interval history: HPI: Ms. Loyd is an 81-year-old female who was sent to the emergency room from her memory care center? with a rash to the ? Left side of her neck that starts midline in the back and wraps around laterally to midline from.? There are multiple small blisters noted to patient's anterior and lateral neck left neck and a 1 in bulla noted to patient's left posterior neck.? I am unable to get any type of history from patient secondary to her dementia and orientation is self only.? At baseline patient is oriented to self only.? When patient is asked if something hurts she will just answer yes.? Per ER records patient did have her hair cut 4-5 days ago and then? her family believes that the rash may have started. Per previous records patient does have a known history of GERD, hypertriglyceridemia, ischemic colitis, myositis, osteoporosis, and type 2 diabetes mellitus. 01/05/2022 she remains lethargic and not able to verbalize much. Moans and groans on verbal commands. Review of system could not be completed. Noted to be tachycardic and afebrile 01/06/2022 patient more awake today restless and constantly saying pretty please. Family at bedside and discussed with them. Remains afebrile. Vitals stable. 01/07/2022 no overnight events. Patient is sleeping during my visit today family at bedside and discussed with them. Raissa
[2022-01-07] MEDS: MELATONIN 5 MG TABLET PO (21:53)
--- NOTE | 2022-01-07 22:44 | PCCCNOTE ---
On 01/07/22, the student, Karie Brown, provided care and completed [facility] documentation on this patient. I have reviewed the student's documentation and agree with the findings.
[2022-01-08] VITALS (13 sets, daily range): BP systolic 106–134; BP diastolic 58–91; PULSE 72–100; RESP 16–26; TEMP 35.7–36.2; O2SAT 90–100
[2022-01-08] MEDS: IPRATROPIUM BR 0.02% INH SOLN 0.5 MG/2.5 ML VIAL INHALATION ×4 (02:23→20:16)
[2022-01-08] MEDS: SODIUM CHLORIDE 0.9% IV 1,000 ML 50 ML IV CONT (05:54)
[2022-01-08] MEDS: AMPICILLIN SULB 1.5 GM/NS 50ML 1.5 GM/50 ML VIAL IVPB ×2 (05:55→17:31)
[2022-01-08 06:12] LABS: Basophils Absolute Auto 0.1 K/mm3 (0.0-0.1); Basophils Percent Auto 0.5 % (0.2-1.2); Eosinophils Absolute Auto 0.2 K/mm3 (0-0.3); Eosinophils Percent Auto 1.3 % (0-4.4); Hematocrit 31.8 % (37.0-47.0); Hemoglobin 10.8 g/dL (12.0-15.0); Immature Granulocyte Percent A 1.5 % (0-0.5); Lymphocytes Absolute Auto 2.03 K/mm3 (0.9-3.2); Lymphocytes Percent Auto 14.9 % (18.3-44.2); Mean Corpuscular Hemoglobin 31.5 pg (26-34); Mean Corpuscular Volume 92.7 fl (80-100); Mean Platelet Volume 9.8 fl (7.4-10.4); Monocytes Absolute Auto 1.4 K/mm3 (0.1-0.6); Monocytes Percent Auto 10.1 % (2.6-8.5); Neutrophils Absolute Auto 9.7 K/mm3 (1.3-6.7); Neutrophils Percent Auto 71.7 % (45.5-73.1); Nucleated Red Blood Cells Perc 0.1 % (0.0-0.2); Platelet Count Result 114 k/mm3 (150-375); Red Blood Count 3.43 M/mm3 (4.2-5.4); Red Cell Distribution Width 13.4 % (11.5-14.5); White Blood Count 13.6 K/mm3 (4.5-10.0)
[2022-01-08] MEDS: GABAPENTIN 300 MG CAPSULE PO ×2 (06:17→13:08)
[2022-01-08 06:32] LABS: Alanine Aminotransferase 29 U/L (6-35); Albumin Level 2.1 g/dL (3.5-5.1); Alkaline Phosphatase 83 U/L (38-126); Anion Gap 4 mmol/L (8-16); Aspartate Amino Transferase 36 U/L (14-36); Bilirubin,Total 0.9 mg/dL (0.2-1.3); Blood Urea Nitrogen 12 mg/dL (7-17); Calcium 7.7 mg/dL (8.4-10.2); Carbon Dioxide 22 mmol/L (22-30); Chloride 107 mmol/L (98-107); Estimated CRCL calculation 81 ml/min; Estimated Glomerular Filt Rate > 60; Glucose 95 mg/dL (65-110); Magnesium 1.8 mg/dL (1.6-2.3); Potassium 3.3 mmol/L (3.4-5.0); Sodium 133 mmol/L (137-145)
[2022-01-08] MEDS: ACETAMINOPHEN 500 MG TABLET PO ×2 (08:54→17:15)
[2022-01-08] MEDS: ASPIRIN 81 MG CHEWABLE TABLET PO (08:54)
[2022-01-08] MEDS: ASCORBIC ACID 500 MG TABLET 1000 MG PO (08:54)
[2022-01-08] MEDS: POTASSIUM CHLORIDE 20 MEQ TABLET PO ×2 (08:55→17:15)
[2022-01-08] MEDS: DIVALPROEX SODIUM SPRINKLE 125 MG CAP.DR 250 MG PO ×3 (08:55→17:15)
[2022-01-08] MEDS: busPIRone HCL 5 MG TABLET 15 MG PO ×2 (08:55→17:15)
[2022-01-08] MEDS: FENOFIBRATE 160 MG TABLET PO (08:55)
[2022-01-08] MEDS: QUEtiapine FUMARATE 25 MG TABLET PO ×2 (08:56→21:16)
[2022-01-08] MEDS: SERTRALINE HCL 25 MG TABLET PO (08:56)
[2022-01-08] MEDS: MORPHINE SULFATE (*CRX) 2 MG/ML INJ IV PUSH (10:31)
--- NOTE | 2022-01-08 11:22 | PM.IMPN ---
Progress Note: A&P Assessment and Plan (1) Blister of neck: Code(s): S10.92XA - Blister (nonthermal) of unspecified part of neck, initial encounter Status: Acute Assessment and Plan: blisters are different stages of healing. It does appear that this could be shingles since it does follow a dermatome. Patient was given acyclovir in the emergency room. Will continue with current therapy and change patient to oral acyclovir at discharge. Next like there might be some super added infection. Will add Unasyn for skin and soft tissue infection. WBC count continues to be elevated will continue to monitor with IV antibiotics Unasyn. Recheck WBC count improved down to 13 K today. Will continue antibiotics IV as is. (2) Hyponatremia: Code(s): E87.1 - Hypo-osmolality and hyponatremia Status: Acute Assessment and Plan: Likely has poor p.o. intake. On normal saline at 100 cc an hour will lower down to 50 cc an hour. She is a bit volume overloaded clinically. Recheck chest x-ray 01/05/2022 with no acute findings. Speech is seen her and evaluated for an oral diet. We might need to keep her NPO until she is more alert. Urine studies ordered. TSH mildly elevated random cortisol appropriate Sodium level stable (3) Thrombocytopenia: Code(s): D69.6 - Thrombocytopenia, unspecified Status: Acute Assessment and Plan: Unknown etiology at this time. There are certain medications the patient was taking they could cause thrombocytopenia, but she has been on these medications for quite some time and this is the 1st from her the thrombocytopenia has been noted. Hematology has been consult and appreciate further recommendations. Dr. 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 She has allergy to codeine. Discussed pain control with the family. Will start low-dose hydrocodone. Add morphine IV p.r.n. Tylenol scheduled and she has also been started on gabapentin. Will change gabapentin to scheduled Code status full code noted patient currently non decisional Subjective Date/time seen: 01/08/22 11:22 Interval history: HPI: Ms. Loyd is an 81-year-old female who was sent to the emergency room from her memory care center? with a rash to the ? Left side of her neck that starts midline in the back and wraps around laterally to midline from.? There are multiple small blisters noted to patient's anterior and lateral neck left neck and a 1 in bull[place] noted to patient's left posterior neck.? I am unable to get any type of history from patient secondary to her dementia and orientation is self only.? At baseline patient is oriented to self only.? When patient is asked if something hurts she will just answer yes.? Per ER records patient did have her hair cut 4-5 days ago and then? her family believes that the rash may have started. Per previous records patient does have a known history of GERD, hypertriglyceridemia, ischemic colitis, myositis, osteoporosis, and type 2 diabetes mellitus. 01/05/2022 she remains lethargic and not able to verbalize much. Moans and groans on verbal commands. Review of system could not be completed. Noted to be tachycardic and afebrile 01/06/2022 patient more awake today restless and constantly saying pretty please. Family at bedside and discussed with them. Remains afebrile. Vitals stable. 01/07/2022 no overnight events. Patient is sleeping
[2022-01-08] MEDS: POTASSIUM CHLORIDE 20 MEQ TABLET 40 MEQ PO (13:08)
[2022-01-08 18:52] LABS: Glucose Point of Care 144 mg/dl (65-105)
[2022-01-08 23:00] LABS: Alveolar/Arterial O2 Gradient 109.6 mmHg; Base Excess ABG -1.7 mEq/l (+/-2.0); Carboxyhemoglobin 0.2 % THb (0-2.0); Fractional Inspired Oxygen 36 %; Methemoglobin ABG 0.3 %THb (0-1.5); Oxygen Content ABG 14.9 %vol (16.0-22.0); Oxygen Saturation ABG 97.7 % (95.0-100.0); Oxyhemoglobin 96.5 % THb (90.0-100.0); PCO2 ABG 38.7 mmHg (35.0-45.0); PO2 ABG 102.2 mmHg (80.0-100.0); PO2 FiO2 Ratio Arterial Blood 2.84 %; Total Hemoglobin 10.9 g/dL (12.0-18.0); pH ABG 7.392 (7.350-7.450)
[2022-01-08 23:02] LABS: Device NASAL CANNULA; Modified Allen's Test Unable to perform; Site Drawn LEFT RADIAL
[2022-01-09] VITALS (10 sets, daily range): BP systolic 116–140; BP diastolic 70–98; PULSE 51–114; RESP 17–22; TEMP 35.5–36.2; O2SAT 92–99
[2022-01-09 00:42] LABS: Glucose Point of Care 126 mg/dl (65-105)
[2022-01-09] MEDS: FUROSEMIDE INJ 40 MG/4 ML VIAL IV PUSH (00:42)
[2022-01-09] MEDS: AMPICILLIN SULB 1.5 GM/NS 50ML 1.5 GM/50 ML VIAL IVPB ×5 (01:08→23:43)
[2022-01-09 07:10] LABS: Basophils Absolute Auto 0.1 K/mm3 (0.0-0.1); Basophils Percent Auto 0.4 % (0.2-1.2); Eosinophils Absolute Auto 0.1 K/mm3 (0-0.3); Eosinophils Percent Auto 0.3 % (0-4.4); Hematocrit 35.1 % (37.0-47.0); Hemoglobin 11.2 g/dL (12.0-15.0); Immature Granulocyte Absolute 0.38 K/mm3 (0.00-0.031); Immature Granulocyte Percent A 1.5 % (0-0.5); Lymphocytes Absolute Auto 1.99 K/mm3 (0.9-3.2); Lymphocytes Percent Auto 7.6 % (18.3-44.2); Mean Corpuscular HGB Conc 31.9 g/dl (32-36); Mean Corpuscular Hemoglobin 31.2 pg (26-34); Mean Corpuscular Volume 97.8 fl (80-100); Mean Platelet Volume 9.4 fl (7.4-10.4); Monocytes Absolute Auto 1.5 K/mm3 (0.1-0.6); Monocytes Percent Auto 5.9 % (2.6-8.5); Neutrophils Percent Auto 84.3 % (45.5-73.1); Platelet Count Result 127 k/mm3 (150-375); Red Blood Count 3.59 M/mm3 (4.2-5.4); Red Cell Distribution Width 13.8 % (11.5-14.5); White Blood Count 26.1 K/mm3 (4.5-10.0)
[2022-01-09 07:22] LABS: Alanine Aminotransferase 29 U/L (6-35); Albumin Level 2.4 g/dL (3.5-5.1); Alkaline Phosphatase 108 U/L (38-126); Anion Gap 4 mmol/L (8-16); Aspartate Amino Transferase 34 U/L (14-36); Bilirubin,Total 0.8 mg/dL (0.2-1.3); Blood Urea Nitrogen 15 mg/dL (7-17); Calcium 8.3 mg/dL (8.4-10.2); Carbon Dioxide 24 mmol/L (22-30); Chloride 105 mmol/L (98-107); Estimated CRCL calculation 63 ml/min; Estimated Glomerular Filt Rate > 60; Glucose 128 mg/dL (65-110); Magnesium 1.9 mg/dL (1.6-2.3); Potassium 3.9 mmol/L (3.4-5.0); Sodium 133 mmol/L (137-145)
[2022-01-09 09:34] LABS: Sodium Urine Random 110 meq/L
[2022-01-09 09:35] LABS: Urea Random Urine < 67 MG/DL
[2022-01-09 10:08] LABS: Lactic Acid Reflex 1.4 mmol/L (0.7-2.0)
[2022-01-09] MEDS: SALINE LOCK FLUSH 10 ML IV PUSH ×2 (13:50→21:53)
--- NOTE | 2022-01-09 14:36 | PM.IMPN ---
Progress Note: A&P Assessment and Plan (1) Blister of neck: Code(s): S10.92XA - Blister (nonthermal) of unspecified part of neck, initial encounter Status: Acute Assessment and Plan: blisters are different stages of healing. It does appear that this could be shingles since it does follow a dermatome. Patient was given acyclovir in the emergency room. Will continue with current therapy and change patient to oral acyclovir at discharge. Next like there might be some super added infection. Will add Unasyn for skin and soft tissue infection. WBC count continues to be elevated will continue to monitor with IV antibiotics Unasyn. Recheck WBC count improved initially. Will continue antibiotics IV as is. (2) Hyponatremia: Code(s): E87.1 - Hypo-osmolality and hyponatremia Status: Acute Assessment and Plan: Likely has poor p.o. intake. On normal saline at 100 cc an hour will lower down to 50 cc an hour. She is a bit volume overloaded clinically. Recheck chest x-ray 01/05/2022 with no acute findings. Speech is seen her and evaluated for an oral diet. We might need to keep her NPO until she is more alert. Urine studies ordered. TSH mildly elevated random cortisol appropriate Sodium level stable (3) Thrombocytopenia: Code(s): D69.6 - Thrombocytopenia, unspecified Status: Acute Assessment and Plan: Unknown etiology at this time. There are certain medications the patient was taking they could cause thrombocytopenia, but she has been on these medications for quite some time and this is the 1st from her the thrombocytopenia has been noted. Hematology has been consult and appreciate further recommendations. Dr. Wray has been consulted and recommendations reviewed Thrombocytopenia continues to improve (4) Acute encephalopathy: Code(s): G93.40 - Encephalopathy, unspecified Status: Acute Assessment and Plan: CTA did negative She has fluctuating mental status. though improved in the beginning now getting worse likely due to new pneumonia Plan # left lower lobe pneumonia suspect aspiration. Will keep NPO. Speech to see. Add vancomycin continue Unasyn. 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 She has allergy to codeine. Discussed pain control with the family. Will start low-dose hydrocodone. Add morphine IV p.r.n. Tylenol scheduled and she has also been started on gabapentin. Will change gabapentin to scheduled Code status full code noted patient currently non decisional. Discussed comfort care versus ongoing medical care. Prognosis is poor with ongoing issues 1 over the other. Will treat with IV antibiotics. Will discuss further if she continues to worsen or decline Subjective Date/time seen: 01/09/22 14:36 Interval history: HPI: Ms. Loyd is an 81-year-old female who was sent to the emergency room from her [facility]? with a rash to the ? Left side of her neck that starts midline in the back and wraps around laterally to midline from.? There are multiple small blisters noted to patient's anterior and lateral neck left neck and a 1 in [place] noted to patient's left posterior neck.? I am unable to get any type of history from patient secondary to her dementia and orientation is self only.? At baseline patient is oriented to self only.? When patient is asked if something hurts she will just answer yes.? Per ER records patient did have her hair cut 4-5 days ago and then? her family believes that the rash may have started. Per previous records patient does have a known history of
[2022-01-09] MEDS: IPRATROPIUM BR 0.02% INH SOLN 0.5 MG/2.5 ML VIAL INHALATION (22:04)
[2022-01-10] VITALS (13 sets, daily range): BP systolic 106–135; BP diastolic 52–100; PULSE 80–104; RESP 14–20; TEMP 36.5–37.8; O2SAT 82–97
[2022-01-10] MEDS: IPRATROPIUM BR 0.02% INH SOLN 0.5 MG/2.5 ML VIAL INHALATION ×4 (03:13→21:23)
[2022-01-10] MEDS: SALINE LOCK FLUSH 10 ML IV PUSH ×3 (05:45→23:48)
[2022-01-10] MEDS: AMPICILLIN SULB 1.5 GM/NS 50ML 1.5 GM/50 ML VIAL IVPB (06:44)
[2022-01-10 08:34] LABS: Basophils Absolute Auto 0.1 K/mm3 (0.0-0.1); Basophils Percent Auto 0.5 % (0.2-1.2); Eosinophils Percent Auto 0.2 % (0-4.4); Hematocrit 35.7 % (37.0-47.0); Hemoglobin 11.8 g/dL (12.0-15.0); Immature Granulocyte Absolute 0.59 K/mm3 (0.00-0.031); Immature Granulocyte Percent A 2.6 % (0-0.5); Lymphocytes Absolute Auto 1.89 K/mm3 (0.9-3.2); Lymphocytes Percent Auto 8.2 % (18.3-44.2); Mean Corpuscular HGB Conc 33.1 g/dl (32-36); Mean Corpuscular Hemoglobin 31.3 pg (26-34); Mean Corpuscular Volume 94.7 fl (80-100); Mean Platelet Volume 9.1 fl (7.4-10.4); Monocytes Absolute Auto 1.7 K/mm3 (0.1-0.6); Monocytes Percent Auto 7.5 % (2.6-8.5); Neutrophils Absolute Auto 18.6 K/mm3 (1.3-6.7); Nucleated Red Blood Cells Absolute Auto 0.1 K/mm3 (0.0-0.012); Nucleated Red Blood Cells Perc 0.2 % (0.0-0.2); Platelet Count Result 182 k/mm3 (150-375); Red Blood Count 3.77 M/mm3 (4.2-5.4); Red Cell Distribution Width 14.1 % (11.5-14.5); White Blood Count 22.9 K/mm3 (4.5-10.0)
[2022-01-10 08:40] LABS: Alanine Aminotransferase 28 U/L (6-35); Albumin Level 2.3 g/dL (3.5-5.1); Alkaline Phosphatase 132 U/L (38-126); Anion Gap 3 mmol/L (8-16); Aspartate Amino Transferase 26 U/L (14-36); Bilirubin,Total 0.9 mg/dL (0.2-1.3); Blood Urea Nitrogen 15 mg/dL (7-17); Calcium 8.4 mg/dL (8.4-10.2); Carbon Dioxide 31 mmol/L (22-30); Chloride 102 mmol/L (98-107); Estimated CRCL calculation 63 ml/min; Estimated Glomerular Filt Rate > 60; Glucose 112 mg/dL (65-110); Magnesium 1.6 mg/dL (1.6-2.3); Potassium 3.1 mmol/L (3.4-5.0); Sodium 136 mmol/L (137-145)
--- NOTE | 2022-01-10 12:04 | PM.IMPN ---
Progress Note: A&P Assessment and Plan (1) Blister of neck: Code(s): S10.92XA - Blister (nonthermal) of unspecified part of neck, initial encounter Status: Acute Assessment and Plan: blisters are different stages of healing. It does appear that this could be shingles since it does follow a dermatome. Patient was given acyclovir in the emergency room. Will continue with current therapy and change patient to oral acyclovir at discharge. Next like there might be some super added infection. Will add Unasyn for skin and soft tissue infection. WBC count continues to be elevated will continue to monitor with IV antibiotics Unasyn. Recheck WBC count improved initially. Will continue antibiotics IV as is. With moving to hospice care will stop these (2) Hyponatremia: Code(s): E87.1 - Hypo-osmolality and hyponatremia Status: Acute Assessment and Plan: Likely has poor p.o. intake. On normal saline at 100 cc an hour will lower down to 50 cc an hour. She is a bit volume overloaded clinically. Recheck chest x-ray 01/05/2022 with no acute findings. Speech is seen her and evaluated for an oral diet. We might need to keep her NPO until she is more alert. Urine studies ordered. TSH mildly elevated random cortisol appropriate Sodium level stable (3) Thrombocytopenia: Code(s): D69.6 - Thrombocytopenia, unspecified Status: Acute Assessment and Plan: Unknown etiology at this time. There are certain medications the patient was taking they could cause thrombocytopenia, but she has been on these medications for quite some time and this is the 1st from her the thrombocytopenia has been noted. Hematology has been consult and appreciate further recommendations. Dr. Wray has been consulted and recommendations reviewed Thrombocytopenia continues to improve and now resolved (4) Acute encephalopathy: Code(s): G93.40 - Encephalopathy, unspecified Status: Acute Assessment and Plan: CTA did negative She has fluctuating mental status. though improved in the beginning now getting worse likely due to new pneumonia (5) Advanced care planning/counseling discussion: Code(s): Z71.89 - Other specified counseling Status: Acute Assessment and Plan: Patient continued to decline/S improvement. With additional pneumonia complicating the course. Discussed and initiated comfort care/hospice discussion. Family receptive and acceptable for the fact that she has not improved she is suffering. All their questions answered. I also spoke with director from [facility] for arrangements for hospice in the facility, sport the desired for. Also coordinated care with care coordination for arrangements for hospice care and facility. We initiate comfort measures here Plan # left lower lobe pneumonia suspect aspiration. Will keep NPO. Speech to see. Add vancomycin continue Unasyn. 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 She has allergy to codeine. Discussed pain control with the family. Will start low-dose hydrocodone. Add morphine IV p.r.n. Tylenol scheduled and she has also been started on gabapentin. Will change gabapentin to scheduled Code status full code noted patient currently non decisional. Subjective Date/time seen: 01/10/22 12:04 Interval history: HPI: Ms. Loyd is an 81-year-old female who was sent to the emergency room from her [facility]? with a rash to the ? Left side of her neck that starts midline in the back and wraps around laterally to midline from.
[2022-01-11 03:00] VITALS: PULSE 99; RESP 20
[2022-01-11] MEDS: IPRATROPIUM BR 0.02% INH SOLN 0.5 MG/2.5 ML VIAL INHALATION ×2 (03:00→08:26)
[2022-01-11 05:07] VITALS: BP 112/101; PULSE 110; RESP 16; TEMP 37.6; O2SAT 90
[2022-01-11] MEDS: SALINE LOCK FLUSH 10 ML IV PUSH (05:47)
[2022-01-11 08:05] VITALS: PULSE 97; RESP 20
[2022-01-11 08:10] VITALS: O2SAT 94
[2022-01-11 08:20] VITALS: PULSE 96; RESP 20
[2022-01-11 08:27] VITALS: O2SAT 94
--- NOTE | 2022-01-11 12:08 | PM.DS ---
DS: Admitting Diagnosis Discharge Date 01/11/22 Admitting Diagnosis Neck rash DS: Discharge Diagnosis Discharge Diagnosis (1) Sepsis: Qualifiers: Sepsis acute organ dysfunction status: unspecified Sepsis type: sepsis due to unspecified organism Qualified Code(s): A41.9 - Sepsis, unspecified organism Code(s): A41.9 - Sepsis, unspecified organism Status: Acute (2) Aspiration pneumonia: Code(s): J69.0 - Pneumonitis due to inhalation of food and vomit Status: Acute (3) Blister of neck: Code(s): S10.92XA - Blister (nonthermal) of unspecified part of neck, initial encounter Status: Acute (4) Hyponatremia: Code(s): E87.1 - Hypo-osmolality and hyponatremia Status: Acute (5) Thrombocytopenia: Code(s): D69.6 - Thrombocytopenia, unspecified Status: Acute (6) Acute encephalopathy: Code(s): G93.40 - Encephalopathy, unspecified Status: Acute (7) Advanced care planning/counseling discussion: Code(s): Z71.89 - Other specified counseling Status: Acute (8) Dementia: Code(s): F03.90 - Unspecified dementia without behavioral disturbance Status: Acute (9) Leukocytosis: Code(s): D72.829 - Elevated white blood cell count, unspecified Status: Acute DS: Summary Hospital Course Reason for hospitalization: 81yo female with dementia here for neck rash and possible PNA. Hospital Course: 81-year-old female with dementia here for left-sided neck blisters. Concerning for shingles. Was started on acyclovir. IV antibiotics were added for possible secondary bacterial infection. Blood cultures were drawn but late in her hospital course. She has sepsis present on admission with elevated white count and tachycardia. Chest x-ray was clear on admission so suspect the pneumonia is less likely and that her sepsis is related to her blistering of her neck. There were episodes of altered mental status. CT the brain showed no acute findings. She may be having intermittent seizures if she has [employer] involvement from the shingles. White count climbed to 26K. Family was informed the patient has waxing and waning condition. They decided to move the patient to hospice care. Patient was discharged on 01/11/2022 to hospice care. I have made myself available for questions but family was satisfied with the information provided and did not have any further questions. Status at Discharge Cognitive/behavioral status at discharge: Critical Time Spent with Patient Time attestation: Total time spent providing and/or coordinating discharge services: 34 minutes Time spent: Greater than 30 minutes Exam Narrative: 99.6 112/101 96 20 94% 4L Gen - Patient is responsive and alert in NARD HEENT - scabbed areas to patient's ear lobe. Neck - left sided neck purplish rash with dried blisters involving the neck/left ear and scalp. Lungs - coarse anteriroly CV - RRR Abd - soft,diffusely tender Ext - diffuse extremity edema. Skin - as above DS: Data Data Completed and Pending Labs on day of discharge: Preliminary micro results at discharge 01/09/22 09:45 Blood Culture - Preliminary Blood 01/09/22 09:45 Blood Culture - Preliminary Blood Discharge Plan Discharge Attending physician on discharge: Steve Park Consulting providers: Hector Wray Discharging Clinician: Steve Park Anticipated Discharge Date/Time: 01/11/22 12:24 Patient Disposition: Hospice - Medical Facility Activity: as tolerated Diet: as tolerated Discharge Instructions: Hospice to follow Oxygen for comfort Patient Instructions: Shingles (DC), Pneumonia (DC) Stand Alone Forms: General Discharge Information Discharge Medications: Continued melatonin 5 mg Tablet 5 mg PO HS Qty: 30 0RF (DME) lancets [OneTouch Delica Plus Lancet] 30 gauge Misc Qty: 1 0RF Rx Instructions: May
[2022-01-11] MEDS: NEOMYCIN/POLYMYXIN/BACITRACIN OINTMENT PACKET 1 PACKET (12:23)
[2022-01-11 12:54] LABS: EDCOVIDSCREEN Negative (Negative)
--- NOTE | 2022-01-11 14:14 | WPDCDIQUERY2 ---
CDI Query Clarification Request ?Sepsis: ?Qualifiers: ?Sepsis acute organ dysfunction status:?unspecified??Sepsis type:?sepsis due to unspecified organism? Qualified Code(s):?A41.9 - Sepsis, unspecified organism ?Code(s): A41.9 - Sepsis, unspecified organism ?Status:?Acute
[2022-01-12 07:52] LABS: Osmolality, Urine 285 mOsm/kg (50-1200)
== END 2022-01-11 13:45 | disposition hospice, home (50) | DRG 871 ==
LOC: ANHED 13:56 → ANH3MEDSUR 14:16
PROVIDERS: Internal Medicine; Internal Medicine Hematology & Oncology; Nurse Practitioner Adult Health; Admitting Provider Family Medicine; Emergency Provider Emergency Medicine; PCP Family Medicine; Visit Provider Internal Medicine
DX: A41.9 Sepsis, unspecified organism (principal); J69.0 Pneumonitis due to inhalation of food and vomit; J18.9 Pneumonia, unspecified organism; E87.1 Hypo-osmolality and hyponatremia; G93.40 Encephalopathy, unspecified; K55.9 Vascular disorder of intestine, unspecified; B02.8 Zoster with other complications; D69.6 Thrombocytopenia, unspecified; F03.90 Unspecified dementia, unspecified severity, without behavioral disturbance, psychotic disturbance, mood disturbance, and anxiety; Z20.822 Contact with and (suspected) exposure to COVID-19; R53.1 Weakness; E11.9 Type 2 diabetes mellitus without complications; K21.9 Gastro-esophageal reflux disease without esophagitis; E78.1 Pure hyperglyceridemia; M60.9 Myositis, unspecified; M81.0 Age-related osteoporosis without current pathological fracture; J30.2 Other seasonal allergic rhinitis; Z79.899 Other long term (current) drug therapy
CPT/HCPCS: 36415; 36569; 36600; 51701; 70450; 71045; 71046; 76700; 80048; 80053; 81001; 82375; 82533; 82550; 82607; 82728; 82746; 82805; 82948; 83050; 83540; 83550; 83605; 83735; 83935; 84300; 84439; 84443; 84480; 84540; 85025; 85055; 86023; 87040; 87426; 93005; 94640; 96361; 96365; 96375; 97162; 97166; 99285; A9270; C1751; C9803; G0378; J0133; J0295; J1940; J2270; J3370; J7030; J7120; J7517